=== PATIENT | female | born 1965 | race Caucasian/White ===

== ENCOUNTER 2016-08-02 18:32 | Emergency (ER) | payer OTHER ==
[~2016-08-02] VITALS: Ht 165.1 cm; Wt 94.8 kg
[~2016-08-02 18:32] MED LIST: ACIPHEX20 MG PO; ACTONEL150 MG PO; AMARYL2 MG PO; AMARYL4 MG; AMARYL4 MG PO; AMBIEN CR12.5 MG PO; AMBIEN10 M1; AMBIEN10 M1 PO; AMBIEN5 MG PO; AMOXICILLIN500 MG PO; ANAPROX DS550 MG PO; ANTACID500 MG PO; ANTIVERT25 MG PO; ASPI-COR81 M1 PO; ASPIRIN81 M1 PO; ATENOLOL25 MG PO; ATIVAN PO; ATIVAN0.5 MG PO; B12,B-12,B 12500 MC1 PO; BACTRIM DS 8001 TA1 PO; BENTYL10 MG PO; CIPRO500 MG PO; CIPROFLOXACIN500 MG PO; CLARITIN10 MG PO; CLEOCIN HCL150 MG PO; CLEOCIN150 MG PO; CLINDAMYCIN HC300 MG PO; CLOPIDOGREL75 MG PO; CYMBALTA30 MG PO; CYMBALTA60 MG PO; DELTASONE10 MG PO; DELTASONE20 MG PO; DOXYCYCLINE MO100 MG PO; FIORICET 325 MG1 TAB PO; FLAGYL500 MG PO; GABAPENTIN TAB600 MG PO; GABAPENTIN600 MG PO; GLIMEPIRIDE4 MG; GLIPIZIDE/METFO1 TA1 PO; GLUCOPHAGE1000 MG PO; GUAIFENESIN AC120 ML PO; HUMALOG100 U/ML SC; HYDROCODONE BIT1 T11 PO; IMDUR SA30 MG PO; JANUVIA50 MG PO; KEFLEX500 M1 PO; LANTUS100 U/ML SC; LEVAQUIN750 M1 PO; LEVEMIR10 ML SC; LEVEMIR10 ML SQ; LEVOFLOXACIN500 MG PO; LISINOPRIL10 MG; LISINOPRIL10 MG PO; LISINOPRIL2.5 MG PO; LOVASTATIN20 MG PO; LOVASTATIN40 MG PO; MACROBID100 M1 PO; MEDROL DOSEPAK4 MG PO; METFORMIN; METFORMIN1000 MG; METFORMIN1000 MG PO; NEURONTIN300 MG PO; NILSTAT,MY500000 UN/ PO; NITROSTAT0.4 MG SL; PANTOPRAZOLE SO40 MG PO; PEPCID20 MG PO; PERCOCET 325 MG1 TA2 PO; PHENERGAN W/DM120 ML PO; PHENERGAN25 M3 PO; PLAVIX75 MG; PLAVIX75 MG PO; PROAIR HFA0.09 MG/AC INH; PROTONIX40 MG PO; PROVENTIL0.09 MG/A1 INH; PROZAC10 MG PO; PROZAC20 MG PO; PROZAC40 M1 PO; PYRIDIUM200 MG PO; RANEXA500 M1 PO; ROBAXIN500 M1 PO; ROBITUSSIN-AC 160 ML PO; SEROQUEL50 MG PO; SYMBICORT1 AE1 INH; TOPAMAX25 M3 PO; TOPAMAX50 MG PO; TRAMADOL HCL50 MG PO; TRAZODONE50 MG PO; ULTRAM50 MG PO; VENTOLIN 02.5 MG/3 M INH; VICODIN; VICODIN 5/500 505 MG PO; VICODIN ES 7501 TA1; VICODIN ES 7501 TAB PO; VITAMIN B-12500 MCG PO; ZALEPLON10 MG PO; ZANTAC 150150 MG PO; ZESTRIL5 MG PO; ZITHROMAX250 MG PO; ZOFRAN ODT4 MG SL; ZOFRAN4 MG PO
[2016-08-02 19:20] LABS: BASO # 0.1 10*3/uL (0.0-0.1); BASO % 0.6 % (0.0-1.0); EOS # 0.3 10*3/uL (0.0-0.4); EOS % 2.7 % (1.0-4.0); HEMATOCRIT 40.5 % (37.0-47.0); HEMOGLOBIN 13.8 g/dl (12.0-16.0); LYMPH # 2.5 10*3/uL (1.3-4.4); LYMPH % 25.7 % (27.0-41.0); MEAN CORPUSCULAR HGB 28.3 pg (27.0-31.0); MEAN CORPUSCULAR HGB CONC 34.1 g/dl (33.0-37.0); MEAN PLATELET VOLUME 9.9 fl (9.6-12.3); MONO # 0.5 10*3/uL (0.1-1.0); MONO % 5.3 % (3.0-9.0); NEUT # 6.4 10*3/uL (2.3-7.9); NEUT % 65.4 % (47.0-73.0); PLATELET COUNT AUTOMATED 260 10*3/uL (130-400); RED BLOOD COUNT 4.88 10*6/uL (4.10-5.10); WHITE BLOOD COUNT 9.7 10*3/uL (4.8-10.8)
[2016-08-02 19:36] LABS: ALBUMIN 3.6 gm/dl (3.1-4.5); ALKALINE PHOSPHATASE 124 U/L (45-117); BILIRUBIN, TOTAL 0.4 mg/dl (0.2-1.0); BUN 12 mg/dl (7-24); CARBON DIOXIDE 25 mmol/L (21-32); CHLORIDE 101 mmol/L (98-107); EST GLOM FILT AFRICAN AMERICAN > 60 ml/min; GLUCOSE 328 mg/dL (65-99); POTASSIUM 4.1 mmol/L (3.5-5.1); SGOT/AST 10 IU/L (3-35); SGPT/ALT 19 U/L (12-78); SODIUM 136 mmol/L (136-145); TOTAL PROTEIN 7.7 gm/dL (6.4-8.2)
[2016-08-02 19:38] LABS: CKMB 1.2 ng/ml (0.5-3.6); MAGNESIUM 1.7 mg/dL (1.5-2.1)
[2016-08-02 19:51] LABS: INTERNATIONAL NORM RATIO 0.9 (2.0-3.5); PROTHROMBIN TIME 9.9 SECONDS (9.0-12.4)
[2016-08-02 20:26] LABS: BILIRUBIN NEGATIVE (NEGATIVE); BLOOD NEGATIVE (NEGATIVE); CLARITY CLEAR (CLEAR); COLOR YELLOW (YELLOW); GLUCOSE 2+ (NEGATIVE); KETONE NEGATIVE (NEGATIVE); LEUKO ESTERASE NEGATIVE (NEGATIVE); NITRITE POSITIVE (NEGATIVE); PROTEIN NEGATIVE (NEGATIVE); SPECIFIC GRAVITY <= 1.005 (1.005-1.030); UROBILINOGEN 0.2 E.U./dl (0.2-1.0)
[2016-08-02 20:46] LABS: BACTERIA 2+; RBC 0-2 rbc/hpf (0-2); URINE REFLEX COMMENT YES (NO); WBC 0-2 wbc/hpf (0-5)
[2016-08-02] MEDS ORDERED: CEFUROXIME AXE250 MG PO (21:08)
[2016-08-02 21:40] VITALS: BP 131/61
[2016-09-25] MEDS ORDERED: RANEXA500 M1 PO (20:50)
[2016-09-25] MEDS ORDERED: PROTONIX40 MG PO (20:51)
[2016-09-25] MEDS ORDERED: METFORMIN500 MG PO (20:51)
== END 2016-08-02 21:50 | disposition home or self-care (01) ==
LOC: ED 18:32
PROVIDERS: Nurse Practitioner Family
DX: K52.9 Noninfective gastroenteritis and colitis, unspecified (principal); F17.200 Nicotine dependence, unspecified, uncomplicated; I10 Essential (primary) hypertension; E11.65 Type 2 diabetes mellitus with hyperglycemia; E11.40 Type 2 diabetes mellitus with diabetic neuropathy, unspecified; E78.5 Hyperlipidemia, unspecified; F41.9 Anxiety disorder, unspecified; I25.10 Atherosclerotic heart disease of native coronary artery without angina pectoris; K21.9 Gastro-esophageal reflux disease without esophagitis; H40.9 Unspecified glaucoma; Z79.82 Long term (current) use of aspirin; Z98.890 Other specified postprocedural states; Z98.51 Tubal ligation status; Z90.710 Acquired absence of both cervix and uterus; Z90.49 Acquired absence of other specified parts of digestive tract; Z88.8 Allergy status to other drugs, medicaments and biological substances; Z88.6 Allergy status to analgesic agent; M19.90 Unspecified osteoarthritis, unspecified site

== ENCOUNTER 2016-08-21 14:07 | Emergency (ER) | payer OTHER ==
[~2016-08-21] VITALS: Wt 90.7 kg
[~2016-08-21 14:07] MED LIST changes: +CEFUROXIME AXE250 MG PO
[2016-08-21 14:43] LABS: BASO # 0.1 10*3/uL (0.0-0.1); BASO % 0.8 % (0.0-1.0); EOS # 0.2 10*3/uL (0.0-0.4); EOS % 2.7 % (1.0-4.0); HEMATOCRIT 40.1 % (37.0-47.0); HEMOGLOBIN 13.5 g/dl (12.0-16.0); LYMPH # 2.5 10*3/uL (1.3-4.4); LYMPH % 32.2 % (27.0-41.0); MEAN CELL VOLUME 84.4 fl (81.0-99.0); MEAN CORPUSCULAR HGB 28.4 pg (27.0-31.0); MEAN CORPUSCULAR HGB CONC 33.7 g/dl (33.0-37.0); MEAN PLATELET VOLUME 9.5 fl (9.6-12.3); MONO # 0.4 10*3/uL (0.1-1.0); MONO % 5.5 % (3.0-9.0); NEUT # 4.6 10*3/uL (2.3-7.9); NEUT % 58.7 % (47.0-73.0); PLATELET COUNT AUTOMATED 302 10*3/uL (130-400); RED BLOOD COUNT 4.75 10*6/uL (4.10-5.10); RED CELL DISTRI WIDTH 13.9 % (0-14.5); WHITE BLOOD COUNT 7.9 10*3/uL (4.8-10.8)
[2016-08-21 14:51] LABS: INTERNATIONAL NORM RATIO 0.9 (2.0-3.5); PROTHROMBIN TIME 9.8 SECONDS (9.0-12.4)
[2016-08-21 14:56] LABS: BILIRUBIN NEGATIVE (NEGATIVE); BLOOD TRACE-INTACT (NEGATIVE); CLARITY CLEAR (CLEAR); COLOR YELLOW (YELLOW); GLUCOSE 3+ (NEGATIVE); KETONE NEGATIVE (NEGATIVE); LEUKO ESTERASE NEGATIVE (NEGATIVE); NITRITE NEGATIVE (NEGATIVE); PH 5.5 (5.0-9.0); PROTEIN NEGATIVE (NEGATIVE); UROBILINOGEN 0.2 E.U./dl (0.2-1.0)
[2016-08-21 14:58] LABS: ALKALINE PHOSPHATASE 110 U/L (45-117); BILIRUBIN, TOTAL 0.3 mg/dl (0.2-1.0); BUN 11 mg/dl (7-24); CARBON DIOXIDE 27 mmol/L (21-32); CHLORIDE 103 mmol/L (98-107); CPK 75 U/L (26-192); EST GLOM FILT AFRICAN AMERICAN > 60 ml/min; GLUCOSE 293 mg/dL (65-99); MAGNESIUM 1.8 mg/dL (1.5-2.1); POTASSIUM 3.9 mmol/L (3.5-5.1); SGOT/AST 12 IU/L (3-35); SGPT/ALT 19 U/L (12-78); SODIUM 139 mmol/L (136-145); TOTAL PROTEIN 6.6 gm/dL (6.4-8.2)
[2016-08-21 15:00] LABS: TROPONIN I < 0.015 ng/ml (<0.5)
[2016-08-21 15:11] LABS: RBC 0-2 rbc/hpf (0-2)
[2016-08-21 15:12] LABS: URINE REFLEX COMMENT NO (NO); YEAST 1+
[2016-08-21 15:49] LABS: URINE AMPHETAMINES < 1000 (1000ng/ml); URINE BARBITURATES < 200 (200ng/ml); URINE COCAINE < 300 (300ng/ml)
[2016-08-21 17:57] VITALS: BP 126/84
[2016-09-25] MEDS ORDERED: RANEXA500 M1 PO (20:50)
[2016-09-25] MEDS ORDERED: METFORMIN500 MG PO (20:51)
[2016-09-25] MEDS ORDERED: PROTONIX40 MG PO (20:51)
== END 2016-08-21 19:30 | disposition short-term general hospital (02) ==
LOC: ED 14:07
PROVIDERS: Student in an Organized Health Care Education/Training Program
DX: G40.909 Epilepsy, unspecified, not intractable, without status epilepticus (principal); F41.9 Anxiety disorder, unspecified; I25.10 Atherosclerotic heart disease of native coronary artery without angina pectoris; E11.40 Type 2 diabetes mellitus with diabetic neuropathy, unspecified; K21.9 Gastro-esophageal reflux disease without esophagitis; M19.90 Unspecified osteoarthritis, unspecified site; I10 Essential (primary) hypertension; H40.9 Unspecified glaucoma; E78.5 Hyperlipidemia, unspecified; F17.200 Nicotine dependence, unspecified, uncomplicated; I25.2 Old myocardial infarction; E11.65 Type 2 diabetes mellitus with hyperglycemia; Z90.710 Acquired absence of both cervix and uterus; Z90.49 Acquired absence of other specified parts of digestive tract; Z98.890 Other specified postprocedural states; Z98.51 Tubal ligation status; Z79.82 Long term (current) use of aspirin; Z91.041 Radiographic dye allergy status; Z88.6 Allergy status to analgesic agent; Z88.8 Allergy status to other drugs, medicaments and biological substances

== ENCOUNTER 2017-01-18 10:06 | Inpatient (IN) | payer OTHER ==
[~2017-01-18] VITALS: Ht 165.1 cm; Wt 89.1 kg
[2017-01-18] VITALS (8 sets, daily range): BP systolic 102–174; BP diastolic 57–96
--- NOTE | ~2017-01-18 | CON ---
[place], [place] REPORT OF CONSULTATION NAME: KT BUSTILLOS [facility] #: [id number] UNIT #: [id number] ROOM: 506 DOCTOR: KOSTAS WagnerMICHAELA BIRTHDATE: [birth year] DOS: 01/19/2017 WOUND CARE CONSULTATION CHIEF COMPLAINT: Productive cough. HISTORY OF PRESENT ILLNESS: This is a 51-year-old female who presented to the Emergency Room Department complaining of a productive cough that began shortly the night before last, she was associated with congestion and shortness of breath. She had complained of pleuritic chest pain during exertion and wanted to be evaluated. She has a complicated medical history with a recent admission back in [place] when she was diagnosed recently with ____ mediastinitis. Apparently, she had a history of a pseudoseizure and at some point required intubation and subsequently developed non-ST elevation [place], underwent percutaneous intervention with stents back on 12/30/2016, was discharged from home and readmitted for shortness of breath, stridor, hypotension and sepsis, requiring pressors. Bronchoscopy was redone which revealed upper airway mucus plugging, tracheal edema and plugging. The patient was reintubated when the bronchoscopy was removed. The patient had a CT scan that was done which showed likely tracheal perforation with surrounding free air. She was started on broad spectrum antibiotics, clindamycin, vancomycin and caspofungin. She had a left neck dissection with drainage of mucus and was discharged on oral clindamycin. She was diagnosed with acute post-intubation tracheal stenosis and a pretracheal abscess and mediastinal phlegmon. Her repeat CT done on 01/11/2017 showed improving mediastinitis and she was supposed to follow up with Dr. Allen Marsh at [facility] in [place] for her followup appointment for Monday. He is a cardiothoracic surgeon. Due to these above complaints, the patient was admitted to the Emergency Room Department. PAST MEDICAL HISTORY: Significant for anxiety, coronary artery disease, chest pain of uncertain etiology, diabetes, neuropathy. She has uncontrolled diabetes, DJD, GERD, glaucoma, hypertension, hyperlipidemia, insulin-dependent diabetes, myocardial infarction, non-ST elevation [place], obesity, posttraumatic stress disorder, status epilepticus, TIA. PAST SURGICAL HISTORY: She has had a history of cardiac catheterization, history of hysterectomy, , cholecystectomy, thoracic surgery, rotator cuff repair, cardiac stents. SOCIAL HISTORY: She is a former smoker, just quit about 2 months ago. She does not drink alcohol or use illicit drugs. FAMILY HISTORY: Significant for pancreatic cancer in her father, rheumatoid arthritis in the mother. ALLERGIES: IVP DYE, IODINE, LINAGLIPTIN FROM TRADJENTA, PROPOXYPHENE FROM DARVOCET. MEDICATIONS FROM HOME: She had been on aspirin, atenolol, clindamycin 300 q.i.d., Plavix 75 daily, duloxetine 60 mg p.o. daily, gabapentin 600 p.o. [place], [place] REPORT OF CONSULTATION NAME: [facility]USTILLOS [facility] #[facility] [id number] UNIT #: [id number] ROOM: 506 DOCTOR: MICHAELA KENYON M.D. BIRTHDATE: [birth year] t.i.d., insulin, NovoLog, Lantus subq at bedtime, Imdur 30 p.o. daily, lisinopril 5 p.o. daily, Claritin 10 mg p.o. daily, metformin 500 p.o. daily, oxycodone 5 mg p.o. q.i.d. p.r.n., Protonix 40 mg p.o. daily, Topamax 25 mg p.o. daily, Ambien 10 mg p.o. at bedtime. CURRENT MEDICATIONS: Include doxycycline 100 mg p.o. b.i.d., Augmentin 875 p.o. b.i.d., vitamin D 4000 units daily. She did receive vancomycin IV that was discontinued, Lovenox 40 subq daily was also added, Zosyn was given, but discontinued as well. REVIEW OF SYSTEMS: Initially, she had complained of productive cough, but she says this is resolved. She is feeling better. She no longer has any chest pain. Her breathing is good. She denies any fevers, nausea, vomiting, abdominal pains, or diarrhea. She says her has been helping her pack her wound since her hospital discharge, they have been using just saline soaked sterile gauze and according to the , her has told her that he is not having to pack in as much as before. She says there is always a little bit of drainage, but this has been changed and it seems to be improving according to the patient. PHYSICAL EXAMINATION: VITAL SIGNS: Her temperature is 98.4, pulse of 86, respirations 18, blood pressure is 113/66. GENERAL: This is a well-developed, well-nourished female, slightly overweight, in no acute distress, pleasant and cooperative. HEENT: Extraocular movements are intact. Sclerae are anicteric. Oropharynx is clear. Mucous membranes are moist. CHEST: She has a very large surgical incision on the anterior neck above the sternocleidomastoid, it is measuring approximately 1 cm in length, 8 cm in width and maximum depth is 3.2 cm. There is really no periwound erythema. There is good granulation tissue. There is really no overt visible necrotic tissue present. I do not see any tunneling or undermining noted. There is a small amount of drainage on the external pad, but very minimal. It is tender to touch, but has been tender the entire time, every time somebody manipulates it, she says this has not changed in anyway. LUNGS: Clear to auscultation anteriorly. There is no stridor. CARDIOVASCULAR: S1, S2, regular rate and rhythm. ABDOMEN: Soft, nontender, and nondistended. She has no guarding or rebound. EXTREMITIES: There is no edema and no calf tenderness. NEUROLOGIC: She is alert, nonfocal and appropriate. LABORATORY DATA: Her white count is 6 and was 5.2 on admission, hemoglobin is 12, platelets are 392. There is no left shift. Her Chem-7 shows a sodium of 135, potassium of 3.7, chloride of 97, BUN is 14, creatinine is 1, glucose is 325 upon admission, her hemoglobin A1c is 9.8. LFTs are normal except for alkaline phosphatase of 142, triglycerides are mildly elevated at 244, HDL is low at 36. Vitamin D is low at 17. TSH is 0.08 and free T4 is 1.41. She did have a wound culture that was done which shows no microorganism seen, but many white blood cells. Chest CT was done, which showed lower midline [place], [place] REPORT OF CONSULTATION NAME: KT BUSTILLOS UNIT #: [id number] ROOM: 506 DOCTOR: MICHAELA KENYON M.D. BIRTHDATE: [birth year] suprasternal notch soft tissue defect consistent with site of the drain, described as recently removed, question of a very small residual collection superior to the manubrium and minimally extending into the anterior aspect of the mediastinum and there is fat stranding in the superior mediastinum consistent with component of residual mediastinitis. It does not extend below the level of the aortic arch and there is no pneumomediastinum comparison with previous imaging and is essential for complete evaluation, enhanced imaging also would be helpful. CT of the soft tissue of the neck shows a large soft tissue defect within the anterior chest wall at the level of the sternal notch consistent with recent pretracheal abscess debridement suboptimally and evaluated with unenhanced CT technique. Extensive superior mediastinal inflammatory fat stranding suggesting mediastinitis. Her chest x-ray was done, which showed no acute cardiopulmonary disease. ASSESSMENT AND PLAN: Large neck wound, status post incision and drainage and debridement in a different state. She was sent home on oral clindamycin. She has a history of mediastinitis. Infectious Disease has been consulted and is going to be changing her to a different oral regimen for now with close outpatient followup. The wound looks clean to me at this time and we will continue with the current dressings until she is reevaluated by Cardiothoracic Surgery. She is supposed to follow up initially with a surgeon at [facility]. Apparently, they do not take her insurance, so she is going to be following up with Dr. Fernandez at [facility]. I did explain to the patient once she is cleared by Cardiothoracic Surgery if she would like to follow up with the Wound Clinic for further wound care, we would be happy to see her. I did also explain that how important it is to get her sugars under control as her sugars are not well controlled and this will impair wound healing. She has multiple other medical problems that are being managed by her medical team. MICHAELA KENYON MD CM:CONSTR:REPORT OF CONSULTATION 1606 01/19/17 1740 interface
--- NOTE | ~2017-01-18 | EKG ---
[place], [place] ELECTROCARDIOGRAM REPORT NAME: KT BUSTILLOS UNIT #: [id number] ROOM: 506 DOCTOR: GIORGIO KUMARI MD BIRTHDATE: [birth year] DOS: 01/18/2017 TIME: 10:31:46 Normal sinus rhythm. Leftward axis. Nonspecific ST-T changes. GIORGIO KUMARI MD CM:EKGRPT:ELECTROCARDIOGRAM REPORT 1156 1201 GIORGIO KUMARI MD
[~2017-01-18 10:06] MED LIST changes: +METFORMIN500 MG PO
[2017-01-18] MEDS ORDERED: NOVOLOG FLEX100 U/ML SC (10:37)
[2017-01-18] MEDS ORDERED: OXYCODONE HCL5 MG PO (10:37)
[2017-01-18] MEDS ORDERED: CLINDAMYCIN HC300 MG PO (10:38)
[2017-01-18] MEDS ORDERED: LANTUS100 U/ML SC (10:38)
[2017-01-18 10:43] LABS: BASO % 0.8 % (0.0-1.0); EOS # 0.1 10*3/uL (0.0-0.4); EOS % 1.5 % (1.0-4.0); HEMATOCRIT 37.7 % (37.0-47.0); HEMOGLOBIN 12.6 g/dl (12.0-16.0); LYMPH # 1.8 10*3/uL (1.3-4.4); MEAN CELL VOLUME 81.4 fl (81.0-99.0); MEAN CORPUSCULAR HGB 27.2 pg (27.0-31.0); MEAN CORPUSCULAR HGB CONC 33.4 g/dl (33.0-37.0); MEAN PLATELET VOLUME 9.6 fl (9.6-12.3); MONO # 0.3 10*3/uL (0.1-1.0); MONO % 5.2 % (3.0-9.0); NEUT % 57.3 % (47.0-73.0); PLATELET COUNT AUTOMATED 381 10*3/uL (130-400); RED BLOOD COUNT 4.63 10*6/uL (4.10-5.10); RED CELL DISTRI WIDTH 14.6 % (0-14.5); WHITE BLOOD COUNT 5.2 10*3/uL (4.8-10.8)
[2017-01-18 11:00] LABS: BUN 11 mg/dl (7-24); CARBON DIOXIDE 25 mmol/L (21-32); CHLORIDE 98 mmol/L (98-107); EST GLOM FILT AFRICAN AMERICAN > 60 ml/min; GLUCOSE 415 mg/dL (65-99); POTASSIUM 3.9 mmol/L (3.5-5.1); SODIUM 137 mmol/L (136-145)
[2017-01-18 11:01] LABS: TROPONIN I < 0.015 ng/ml (<0.045)
[2017-01-19 06:46] LABS: BASO % 0.7 % (0.0-1.0); EOS # 0.1 10*3/uL (0.0-0.4); EOS % 2.2 % (1.0-4.0); HEMATOCRIT 38.4 % (37.0-47.0); HEMOGLOBIN 12.6 g/dl (12.0-16.0); LYMPH # 2.4 10*3/uL (1.3-4.4); LYMPH % 40.5 % (27.0-41.0); MEAN CELL VOLUME 84.4 fl (81.0-99.0); MEAN CORPUSCULAR HGB 27.7 pg (27.0-31.0); MEAN CORPUSCULAR HGB CONC 32.8 g/dl (33.0-37.0); MEAN PLATELET VOLUME 9.7 fl (9.6-12.3); MONO # 0.3 10*3/uL (0.1-1.0); MONO % 5.5 % (3.0-9.0); NEUT % 50.6 % (47.0-73.0); PLATELET COUNT AUTOMATED 392 10*3/uL (130-400); RED BLOOD COUNT 4.55 10*6/uL (4.10-5.10); RED CELL DISTRI WIDTH 14.9 % (0-14.5)
[2017-01-19 06:58] LABS: HEMOGLOBIN A1c 9.8 % (4.8-5.6)
[2017-01-19 07:13] LABS: PROTHROMBIN TIME 10.3 SECONDS (9.0-12.4)
[2017-01-19 07:17] LABS: ALBUMIN 3.3 gm/dl (3.1-4.5); ALKALINE PHOSPHATASE 142 U/L (45-117); BILIRUBIN, TOTAL 0.7 mg/dl (0.2-1.0); BUN 14 mg/dl (7-24); CARBON DIOXIDE 26 mmol/L (21-32); CHLORIDE 97 mmol/L (98-107); CHOLESTEROL 196 mg/dL (<200); EST GLOM FILT AFRICAN AMERICAN > 60 ml/min; FREE T4 1.41 ng/dl (0.76-1.46); GLUCOSE 325 mg/dL (65-99); HDL CHOLESTEROL 36 mg/dl (40-60); LDL CHOLESTEROL 111 mg/dL (9-159); MAGNESIUM 1.8 mg/dL (1.5-2.1); PHOSPHOROUS 4.2 mg/dL (2.5-4.9); POTASSIUM 3.7 mmol/L (3.5-5.1); SGOT/AST 15 IU/L (3-35); SGPT/ALT 38 U/L (12-78); SODIUM 135 mmol/L (136-145); TOTAL PROTEIN 7.9 gm/dL (6.4-8.2); TRIGLYCERIDES 244 mg/dl (<150); VLDL CHOLESTEROL 49 mg/dL (6-40)
[2017-01-19 07:22] LABS: VITAMIN D, 25-HYDROXY 17.3 ng/mL (30-100)
[2017-01-19 07:23] LABS: FOLIC ACID 11.95 ng/mL (>5.38)
[2017-01-19 08:00] VITALS: BP 122/74
[2017-01-19 12:00] VITALS: BP 113/66
[2017-01-19] MEDS ORDERED: DOXYCYCLINE MO100 M1 PO (15:47)
[2017-01-19] MEDS ORDERED: AUGMENTIN 875875 MG PO (15:47)
[2017-01-19 16:00] VITALS: BP 122/64
[2017-01-19] MEDS ORDERED: D-1000 185 MG-11 TAB PO (16:30)
== END 2017-01-19 16:57 | disposition home or self-care (01) | DRG 178 ==
LOC: ED 10:06 → 5E 14:03 → EDHOLD 14:03 → 5E 14:10
PROVIDERS: Emergency Medicine; Internal Medicine
DX: J98.51 Mediastinitis (principal); E87.1 Hypo-osmolality and hyponatremia; E11.42 Type 2 diabetes mellitus with diabetic polyneuropathy; E44.0 Moderate protein-calorie malnutrition; K21.9 Gastro-esophageal reflux disease without esophagitis; E78.5 Hyperlipidemia, unspecified; F41.9 Anxiety disorder, unspecified; F43.10 Post-traumatic stress disorder, unspecified; I25.10 Atherosclerotic heart disease of native coronary artery without angina pectoris; I10 Essential (primary) hypertension; H40.9 Unspecified glaucoma; M19.90 Unspecified osteoarthritis, unspecified site; E66.09 Other obesity due to excess calories; G40.901 Epilepsy, unspecified, not intractable, with status epilepticus; E11.9 Type 2 diabetes mellitus without complications; E55.9 Vitamin D deficiency, unspecified; I25.2 Old myocardial infarction; Z86.73 Personal history of transient ischemic attack (TIA), and cerebral infarction without residual deficits; Z90.710 Acquired absence of both cervix and uterus; Z90.49 Acquired absence of other specified parts of digestive tract; Z87.891 Personal history of nicotine dependence; Z80.0 Family history of malignant neoplasm of digestive organs; Z82.61 Family history of arthritis; Z79.82 Long term (current) use of aspirin; Z79.4 Long term (current) use of insulin; Z79.84 Long term (current) use of oral hypoglycemic drugs; Z79.1 Long term (current) use of non-steroidal anti-inflammatories (NSAID); Z79.899 Other long term (current) drug therapy; Z88.8 Allergy status to other drugs, medicaments and biological substances; Z68.32 Body mass index [BMI] 32.0-32.9, adult

== ENCOUNTER 2017-01-22 18:47 | Emergency (ER) | payer OTHER ==
[~2017-01-22] VITALS: Ht 165.1 cm; Wt 88.5 kg
[~2017-01-22 18:47] MED LIST changes: +AUGMENTIN 875875 MG PO; +D-1000 185 MG-11 TAB PO; +DOXYCYCLINE MO100 M1 PO; +NOVOLOG FLEX100 U/ML SC; +OXYCODONE HCL5 MG PO
[2017-01-22 19:43] LABS: BASO # 0.1 10*3/uL (0.0-0.1); BASO % 0.9 % (0.0-1.0); EOS # 0.1 10*3/uL (0.0-0.4); HEMATOCRIT 36.9 % (37.0-47.0); HEMOGLOBIN 12.1 g/dl (12.0-16.0); LYMPH % 36.6 % (27.0-41.0); MEAN CELL VOLUME 82.7 fl (81.0-99.0); MEAN CORPUSCULAR HGB 27.1 pg (27.0-31.0); MEAN CORPUSCULAR HGB CONC 32.8 g/dl (33.0-37.0); MONO # 0.3 10*3/uL (0.1-1.0); MONO % 6.1 % (3.0-9.0); NEUT # 2.9 10*3/uL (2.3-7.9); PLATELET COUNT AUTOMATED 353 10*3/uL (130-400); RED BLOOD COUNT 4.46 10*6/uL (4.10-5.10); RED CELL DISTRI WIDTH 14.3 % (0-14.5); WHITE BLOOD COUNT 5.4 10*3/uL (4.8-10.8)
[2017-01-22 19:53] LABS: PROTHROMBIN TIME 10.2 SECONDS (9.0-12.4)
[2017-01-22 20:01] LABS: ALBUMIN 3.1 gm/dl (3.1-4.5); ALKALINE PHOSPHATASE 148 U/L (45-117); BILIRUBIN, TOTAL 0.4 mg/dl (0.2-1.0); BUN 14 mg/dl (7-24); CARBON DIOXIDE 25 mmol/L (21-32); CHLORIDE 98 mmol/L (98-107); EST GLOM FILT AFRICAN AMERICAN > 60 ml/min; GLUCOSE 461 mg/dL (65-99); MAGNESIUM 1.5 mg/dL (1.5-2.1); POTASSIUM 4.3 mmol/L (3.5-5.1); SGOT/AST 13 IU/L (3-35); SGPT/ALT 29 U/L (12-78); SODIUM 134 mmol/L (136-145); TOTAL PROTEIN 7.7 gm/dL (6.4-8.2)
[2017-01-22 20:07] LABS: TROPONIN I < 0.015 ng/ml (<0.045)
[2017-01-22 21:40] LABS: LA>2 REFLEX 2 HR DRAW NOW
[2017-01-22 22:17] VITALS: BP 118/69
[2017-01-22 23:58] LABS: LA>2 REFLEX 4 HR DRAW NOW
== END 2017-01-22 22:36 | disposition home or self-care (01) ==
LOC: ED 18:47
PROVIDERS: Nurse Practitioner Family
DX: E11.65 Type 2 diabetes mellitus with hyperglycemia (principal); R06.02 Shortness of breath; I25.10 Atherosclerotic heart disease of native coronary artery without angina pectoris; M19.90 Unspecified osteoarthritis, unspecified site; K21.9 Gastro-esophageal reflux disease without esophagitis; I10 Essential (primary) hypertension; E78.5 Hyperlipidemia, unspecified; F43.10 Post-traumatic stress disorder, unspecified; Z87.891 Personal history of nicotine dependence; Z90.49 Acquired absence of other specified parts of digestive tract; Z95.5 Presence of coronary angioplasty implant and graft; Z86.73 Personal history of transient ischemic attack (TIA), and cerebral infarction without residual deficits; Z79.4 Long term (current) use of insulin; Z79.82 Long term (current) use of aspirin; Z88.8 Allergy status to other drugs, medicaments and biological substances; Z91.041 Radiographic dye allergy status; Z79.899 Other long term (current) drug therapy

== ENCOUNTER → 2017-01-24 | Outpatient (CLI) | payer OTHER ==
[~2017-01-24] MED LIST changes: +BUSPIRONE HCL7.5 MG PO; +CRESTOR20 M1 PO; +PREDNISONE50 MG PO; +VICTOZA6 MG/ML SQ
== END ==
LOC: WOUNDCARE 09:02
DX: T81.89XD Other complications of procedures, not elsewhere classified, subsequent encounter (principal); S11.90XD Unspecified open wound of unspecified part of neck, subsequent encounter; I21.4 Non-ST elevation (NSTEMI) myocardial infarction; E11.9 Type 2 diabetes mellitus without complications; X58.XXXD Exposure to other specified factors, subsequent encounter; Y83.8 Other surgical procedures as the cause of abnormal reaction of the patient, or of later complication, without mention of misadventure at the time of the procedure

== ENCOUNTER 2017-01-27 11:10 | Inpatient (IN) | payer OTHER ==
[~2017-01-27] VITALS: Ht 165.1 cm; Wt 90.4 kg
[2017-01-27] VITALS (8 sets, daily range): BP systolic 96–155; BP diastolic 60–88
[~2017-01-27 11:10] MED LIST changes: -BUSPIRONE HCL7.5 MG PO; -CRESTOR20 M1 PO; -PREDNISONE50 MG PO; -VICTOZA6 MG/ML SQ
[2017-01-27 11:36] LABS: BASO # 0.1 10*3/uL (0.0-0.1); BASO % 1.1 % (0.0-1.0); EOS # 0.1 10*3/uL (0.0-0.4); EOS % 2.1 % (1.0-4.0); HEMATOCRIT 38.6 % (37.0-47.0); HEMOGLOBIN 12.8 g/dl (12.0-16.0); LYMPH # 2.5 10*3/uL (1.3-4.4); LYMPH % 38.2 % (27.0-41.0); MEAN CELL VOLUME 80.4 fl (81.0-99.0); MEAN CORPUSCULAR HGB 26.7 pg (27.0-31.0); MEAN CORPUSCULAR HGB CONC 33.2 g/dl (33.0-37.0); MEAN PLATELET VOLUME 10.1 fl (9.6-12.3); MONO # 0.4 10*3/uL (0.1-1.0); MONO % 5.6 % (3.0-9.0); NEUT # 3.5 10*3/uL (2.3-7.9); NEUT % 52.7 % (47.0-73.0); PLATELET COUNT AUTOMATED 324 10*3/uL (130-400); RED CELL DISTRI WIDTH 13.8 % (0-14.5); WHITE BLOOD COUNT 6.6 10*3/uL (4.8-10.8)
[2017-01-27 11:45] LABS: PROTHROMBIN TIME 10.1 SECONDS (9.0-12.4)
[2017-01-27 11:54] LABS: ALBUMIN 3.3 gm/dl (3.1-4.5); ALKALINE PHOSPHATASE 150 U/L (45-117); BILIRUBIN, TOTAL 0.4 mg/dl (0.2-1.0); BUN 10 mg/dl (7-24); CARBON DIOXIDE 22 mmol/L (21-32); CHLORIDE 104 mmol/L (98-107); EST GLOM FILT AFRICAN AMERICAN > 60 ml/min; GLUCOSE 300 mg/dL (65-99); MAGNESIUM 1.5 mg/dL (1.5-2.1); POTASSIUM 4.1 mmol/L (3.5-5.1); SGOT/AST 11 IU/L (3-35); SGPT/ALT 25 U/L (12-78); SODIUM 139 mmol/L (136-145); TOTAL PROTEIN 7.5 gm/dL (6.4-8.2)
[2017-01-27 12:01] LABS: TROPONIN I < 0.015 ng/ml (<0.045)
[2017-01-27] MEDS ORDERED: PROZAC20 MG PO (17:25)
[2017-01-27] MEDS ORDERED: CRESTOR20 M1 PO (17:25)
[2017-01-27] MEDS ORDERED: BUSPIRONE HCL7.5 MG PO (17:27)
[2017-01-27] MEDS ORDERED: VICTOZA6 MG/ML SQ (17:30)
[2017-01-27 17:52] LABS: CKMB 1.2 ng/ml (0.5-3.6)
[2017-01-28] VITALS: BP 110/58
[2017-01-28 00:42] LABS: CKMB 1.1 ng/ml (0.5-3.6)
[2017-01-28 06:25] LABS: BASO # 0.1 10*3/uL (0.0-0.1); BASO % 0.9 % (0.0-1.0); EOS # 0.2 10*3/uL (0.0-0.4); HEMATOCRIT 35.3 % (37.0-47.0); HEMOGLOBIN 11.6 g/dl (12.0-16.0); LYMPH # 2.4 10*3/uL (1.3-4.4); LYMPH % 44.3 % (27.0-41.0); MEAN CELL VOLUME 83.3 fl (81.0-99.0); MEAN CORPUSCULAR HGB 27.4 pg (27.0-31.0); MEAN CORPUSCULAR HGB CONC 32.9 g/dl (33.0-37.0); MEAN PLATELET VOLUME 9.9 fl (9.6-12.3); MONO # 0.3 10*3/uL (0.1-1.0); MONO % 6.2 % (3.0-9.0); NEUT # 2.4 10*3/uL (2.3-7.9); NEUT % 45.2 % (47.0-73.0); PLATELET COUNT AUTOMATED 264 10*3/uL (130-400); RED BLOOD COUNT 4.24 10*6/uL (4.10-5.10); WHITE BLOOD COUNT 5.3 10*3/uL (4.8-10.8)
[2017-01-28 06:32] LABS: CKMB 1.2 ng/ml (0.5-3.6)
[2017-01-28 06:47] LABS: PROTHROMBIN TIME 10.6 SECONDS (9.0-12.4)
[2017-01-28 06:52] LABS: ALBUMIN 3.2 gm/dl (3.1-4.5); BILIRUBIN, TOTAL 0.4 mg/dl (0.2-1.0); BUN 11 mg/dl (7-24); CARBON DIOXIDE 25 mmol/L (21-32); CHLORIDE 105 mmol/L (98-107); CHOLESTEROL 158 mg/dL (<200); EST GLOM FILT AFRICAN AMERICAN > 60 ml/min; GLUCOSE 180 mg/dL (65-99); HDL CHOLESTEROL 39 mg/dl (40-60); LDL CHOLESTEROL 68 mg/dL (9-159); MAGNESIUM 1.7 mg/dL (1.5-2.1); PHOSPHOROUS 4.4 mg/dL (2.5-4.9); POTASSIUM 3.7 mmol/L (3.5-5.1); SGOT/AST 11 IU/L (3-35); SGPT/ALT 25 U/L (12-78); SODIUM 143 mmol/L (136-145); TRIGLYCERIDES 257 mg/dl (<150); VLDL CHOLESTEROL 51 mg/dL (6-40)
[2017-01-28 06:57] LABS: ALKALINE PHOSPHATASE 125 U/L (45-117); THYROID STIM HORMONE (HS) 0.088 uIU/ml (0.358-4.75); TOTAL PROTEIN 6.9 gm/dL (6.4-8.2)
[2017-01-28 07:10] LABS: HEMOGLOBIN A1c 10.1 % (4.8-5.6)
[2017-01-28 07:40] LABS: VITAMIN D, 25-HYDROXY 24.9 ng/mL (30-100)
[2017-01-28 07:41] LABS: FOLIC ACID 12.38 ng/mL (>5.38)
[2017-01-28 08:00] VITALS: BP 153/84
[2017-01-28 12:00] VITALS: BP 107/58
[2017-01-28 12:08] LABS: CKMB 1.2 ng/ml (0.5-3.6)
[2017-01-28 16:00] VITALS: BP 96/59
[2017-01-28 20:00] VITALS: BP 116/50
[2017-01-29] VITALS (12 sets, daily range): BP systolic 103–181; BP diastolic 63–123
[2017-01-29 00:47] LABS: BASO % 0.1 % (0.0-1.0); HEMATOCRIT 34.4 % (37.0-47.0); HEMOGLOBIN 11.8 g/dl (12.0-16.0); IG # 0.1 10*3/uL (0.0-0.1); LYMPH # 0.9 10*3/uL (1.3-4.4); LYMPH % 9.9 % (27.0-41.0); MEAN CELL VOLUME 80.4 fl (81.0-99.0); MEAN CORPUSCULAR HGB 27.6 pg (27.0-31.0); MEAN CORPUSCULAR HGB CONC 34.3 g/dl (33.0-37.0); MEAN PLATELET VOLUME 10.2 fl (9.6-12.3); MONO # 0.1 10*3/uL (0.1-1.0); MONO % 0.6 % (3.0-9.0); NEUT # 7.7 10*3/uL (2.3-7.9); NEUT % 88.5 % (47.0-73.0); PLATELET COUNT AUTOMATED 283 10*3/uL (130-400); RED BLOOD COUNT 4.28 10*6/uL (4.10-5.10); RED CELL DISTRI WIDTH 13.6 % (0-14.5); WHITE BLOOD COUNT 8.7 10*3/uL (4.8-10.8)
[2017-01-29 01:04] LABS: BUN 17 mg/dl (7-24); CARBON DIOXIDE 18 mmol/L (21-32); CHLORIDE 100 mmol/L (98-107); EST GLOM FILT AFRICAN AMERICAN 50 ml/min; GLUCOSE 477 mg/dL (65-99); POTASSIUM 3.8 mmol/L (3.5-5.1); SODIUM 136 mmol/L (136-145)
[2017-01-29 01:14] LABS: TROPONIN I < 0.015 ng/ml (<0.045)
[2017-01-29 05:48] LABS: BASO % 0.1 % (0.0-1.0); HEMATOCRIT 33.5 % (37.0-47.0); IG # 0.1 10*3/uL (0.0-0.1); LYMPH # 0.9 10*3/uL (1.3-4.4); LYMPH % 8.3 % (27.0-41.0); MEAN CELL VOLUME 80.5 fl (81.0-99.0); MEAN CORPUSCULAR HGB 26.4 pg (27.0-31.0); MEAN CORPUSCULAR HGB CONC 32.8 g/dl (33.0-37.0); MEAN PLATELET VOLUME 10.4 fl (9.6-12.3); MONO # 0.1 10*3/uL (0.1-1.0); MONO % 0.7 % (3.0-9.0); NEUT # 9.4 10*3/uL (2.3-7.9); PLATELET COUNT AUTOMATED 280 10*3/uL (130-400); RED BLOOD COUNT 4.16 10*6/uL (4.10-5.10); RED CELL DISTRI WIDTH 13.6 % (0-14.5); WHITE BLOOD COUNT 10.4 10*3/uL (4.8-10.8)
[2017-01-29 05:59] LABS: ALBUMIN 3.2 gm/dl (3.1-4.5); ALKALINE PHOSPHATASE 128 U/L (45-117); BILIRUBIN, TOTAL 0.3 mg/dl (0.2-1.0); BUN 16 mg/dl (7-24); CARBON DIOXIDE 22 mmol/L (21-32); CHLORIDE 100 mmol/L (98-107); EST GLOM FILT AFRICAN AMERICAN > 60 ml/min; GLUCOSE 419 mg/dL (65-99); MAGNESIUM 1.5 mg/dL (1.5-2.1); POTASSIUM 4.5 mmol/L (3.5-5.1); SGOT/AST 13 IU/L (3-35); SGPT/ALT 24 U/L (12-78); SODIUM 135 mmol/L (136-145); TOTAL PROTEIN 7.3 gm/dL (6.4-8.2)
[2017-01-29] MEDS ORDERED: PREDNISONE50 MG PO (14:34)
[2017-01-29] MEDS ORDERED: ATIVAN0.5 MG PO (14:34)
[2017-01-29] MEDS ORDERED: PROVENTIL0.09 MG/A1 INH (14:34)
== END 2017-01-29 15:15 | disposition home or self-care (01) | DRG 637 ==
LOC: ED 11:10 → EDHOLD 15:17 → 5E 15:27 → ICCU 01-29 02:05
PROVIDERS: Emergency Medicine; Family Medicine; Hospitalist; Student in an Organized Health Care Education/Training Program
DX: E11.65 Type 2 diabetes mellitus with hyperglycemia (principal); J98.51 Mediastinitis; E44.1 Mild protein-calorie malnutrition; E11.42 Type 2 diabetes mellitus with diabetic polyneuropathy; K21.9 Gastro-esophageal reflux disease without esophagitis; E78.2 Mixed hyperlipidemia; F41.9 Anxiety disorder, unspecified; F43.10 Post-traumatic stress disorder, unspecified; I25.10 Atherosclerotic heart disease of native coronary artery without angina pectoris; I10 Essential (primary) hypertension; H40.9 Unspecified glaucoma; M15.9 Polyosteoarthritis, unspecified; G40.901 Epilepsy, unspecified, not intractable, with status epilepticus; E66.01 Morbid (severe) obesity due to excess calories; Z79.4 Long term (current) use of insulin; Z87.891 Personal history of nicotine dependence; Z98.61 Coronary angioplasty status; Z91.041 Radiographic dye allergy status; Z88.8 Allergy status to other drugs, medicaments and biological substances; Z86.73 Personal history of transient ischemic attack (TIA), and cerebral infarction without residual deficits; Z90.710 Acquired absence of both cervix and uterus; Z90.49 Acquired absence of other specified parts of digestive tract; Z98.891 History of uterine scar from previous surgery; Z98.51 Tubal ligation status; Z83.3 Family history of diabetes mellitus; Z82.49 Family history of ischemic heart disease and other diseases of the circulatory system; Z80.8 Family history of malignant neoplasm of other organs or systems; Z79.82 Long term (current) use of aspirin; Z79.84 Long term (current) use of oral hypoglycemic drugs; Z79.899 Other long term (current) drug therapy; I25.2 Old myocardial infarction

== ENCOUNTER → 2017-02-01 | Outpatient (CLI) | payer OTHER ==
[~2017-02-01] MED LIST changes: +BUSPIRONE HCL7.5 MG PO; +CRESTOR20 M1 PO; +PREDNISONE50 MG PO; +VICTOZA6 MG/ML SQ
== END ==
LOC: WOUNDCARE 04:24
DX: T81.89XD Other complications of procedures, not elsewhere classified, subsequent encounter (principal); L02.11 Cutaneous abscess of neck; E11.628 Type 2 diabetes mellitus with other skin complications; Y83.8 Other surgical procedures as the cause of abnormal reaction of the patient, or of later complication, without mention of misadventure at the time of the procedure

== ENCOUNTER → 2017-02-08 | Outpatient (CLI) | payer OTHER ==
[~2017-02-08] MED LIST changes: +ATIVAN1 MG PO
== END ==
LOC: WOUNDCARE 02:49
DX: T81.89XD Other complications of procedures, not elsewhere classified, subsequent encounter (principal); L02.11 Cutaneous abscess of neck; E11.9 Type 2 diabetes mellitus without complications; Z87.891 Personal history of nicotine dependence; Y83.8 Other surgical procedures as the cause of abnormal reaction of the patient, or of later complication, without mention of misadventure at the time of the procedure

== ENCOUNTER 2017-02-14 18:06 | Emergency (ER) | payer OTHER ==
[~2017-02-14] VITALS: Ht 165.1 cm; Wt 90.3 kg
[~2017-02-14 18:06] MED LIST changes: -ATIVAN1 MG PO
[2017-02-14 18:16] VITALS: BP 156/95
[2017-02-14 18:55] LABS: BASO % 0.5 % (0.0-1.0); EOS # 0.2 10*3/uL (0.0-0.4); EOS % 2.1 % (1.0-4.0); HEMATOCRIT 33.1 % (37.0-47.0); HEMOGLOBIN 11.1 g/dl (12.0-16.0); LYMPH # 2.6 10*3/uL (1.3-4.4); LYMPH % 33.5 % (27.0-41.0); MEAN CELL VOLUME 80.7 fl (81.0-99.0); MEAN CORPUSCULAR HGB 27.1 pg (27.0-31.0); MEAN CORPUSCULAR HGB CONC 33.5 g/dl (33.0-37.0); MONO # 0.3 10*3/uL (0.1-1.0); MONO % 4.2 % (3.0-9.0); NEUT # 4.6 10*3/uL (2.3-7.9); NEUT % 59.4 % (47.0-73.0); PLATELET COUNT AUTOMATED 228 10*3/uL (130-400); RED CELL DISTRI WIDTH 14.6 % (0-14.5); WHITE BLOOD COUNT 7.8 10*3/uL (4.8-10.8)
[2017-02-14 19:09] LABS: ALBUMIN 3.3 gm/dl (3.1-4.5); BILIRUBIN, TOTAL 0.2 mg/dl (0.2-1.0); POTASSIUM 4.1 mmol/L (3.5-5.1); TOTAL PROTEIN 7.1 gm/dL (6.4-8.2)
[2017-02-14] MEDS ORDERED: ATIVAN1 MG PO (22:32)
== END 2017-02-14 22:43 | disposition home or self-care (01) ==
LOC: ED 18:06
PROVIDERS: Emergency Medicine
DX: R06.00 Dyspnea, unspecified (principal); R13.10 Dysphagia, unspecified; R05 Cough; I25.10 Atherosclerotic heart disease of native coronary artery without angina pectoris; K21.9 Gastro-esophageal reflux disease without esophagitis; E78.5 Hyperlipidemia, unspecified; I10 Essential (primary) hypertension; M19.90 Unspecified osteoarthritis, unspecified site; E11.40 Type 2 diabetes mellitus with diabetic neuropathy, unspecified; E11.39 Type 2 diabetes mellitus with other diabetic ophthalmic complication; H40.9 Unspecified glaucoma; Z91.041 Radiographic dye allergy status; Z88.8 Allergy status to other drugs, medicaments and biological substances; Z79.82 Long term (current) use of aspirin; Z79.899 Other long term (current) drug therapy; Z87.891 Personal history of nicotine dependence; Z79.4 Long term (current) use of insulin; Z86.73 Personal history of transient ischemic attack (TIA), and cerebral infarction without residual deficits

== ENCOUNTER → 2017-02-15 | Outpatient (CLI) | payer OTHER ==
[~2017-02-15] MED LIST changes: +ATIVAN1 MG PO
== END ==
LOC: WOUNDCARE 03:07
DX: L02.11 Cutaneous abscess of neck (principal); E11.9 Type 2 diabetes mellitus without complications

== ENCOUNTER → 2017-02-28 | Outpatient (CLI) | payer OTHER ==
--- NOTE | ~2017-02-28 | PR ---
[place], [place] PROGRESS NOTE NAME: KT BUSTILLOS [facility] #: [id number] UNIT #: [id number] ROOM: DOCTOR: KOSTAS WagnerMICHAELA BIRTHDATE: [birth year] DOS: 02/28/2017 CHIEF COMPLAINT: Followup of neck wound. HISTORY OF PRESENT ILLNESS: This is a 51-year-old female who has had an open wound of the neck secondary to an abscess. She had a very large gaping wound after incision and drainage. She has been coming to the Wound Clinic for 5 weeks now. The wound has been steadily improving. Last time she was here, we had started her on collagen Ag. She comes in today stating that it is starting to feel uncomfortable. She has noted irritation and discomfort around the wound for the past 3 days now. It feels irritated and she is not sure why. She has not reported any change in drainage. She was noted to have a temperature of 99.1 today. No reports of change in her sugars. OBJECTIVE: VITAL SIGNS: Stable. Temperature is 99.1, pulse 85, respirations 18 and blood pressure is 118/64. SKIN: The wound itself is measuring smaller at 0.3 x 2.5 x 0.1. It looks good. It looks clean. There is some hypergranulation noted on the edges of the wound that was not present last week and there is some minimal erythema just around the periwound. There is no purulence or undermining noted or sign of an abscess formation. No debridement was done. ASSESSMENT AND PLAN: Large neck wound secondary to an abscess. Overall, the wound looks pretty good. She does complain of some irritation and discomfort around it which could be possibly secondary to the collagen silver that she has been getting. I would like to switch this and discontinue the collagen and the silver and switch to Bactroban ointment to be utilized and just a dry dressing over that and see if that will help. In addition, there may be a slight early cellulitis around the wound. So, we will go ahead and start her empirically on Keflex 500 t.i.d. for now until she comes in at her next wound care visit. I did ask her to keep an eye on the wound. If for some reason things change, she should come and see us sooner than a week. [place], [place] PROGRESS NOTE NAME: KT BUSTILLOS UNIT #: [id number] ROOM: DOCTOR: MICHAELA KENYON M.D. BIRTHDATE: [birth year] MICHAELA KENYON MD CM:KENYA [id number] MICHAELA KENYON M.D. 02/28/17 1459 interface
== END ==
LOC: WOUNDCARE 12:43
DX: L02.11 Cutaneous abscess of neck (principal); E11.628 Type 2 diabetes mellitus with other skin complications

== ENCOUNTER → 2017-03-08 | Outpatient (CLI) | payer OTHER ==
--- NOTE | ~2017-03-08 | PR ---
[place], [place] PROGRESS NOTE NAME: KT BUSTILLOS [facility] #: [id number] UNIT #: [id number] ROOM: DOCTOR: MICHAELA KENYON M.D. BIRTHDATE: [birth year] DOS: 03/08/2017 CHIEF COMPLAINT: Followup of neck wound. HISTORY OF PRESENT ILLNESS: This is a 52-year-old female with diabetes who had a tracheal abscess. She underwent incision and drainage surgically and was left with a large gaping wound to the neck. She comes in to the Wound Clinic now for her followup visit. She has been coming to the Wound Clinic for 6 weeks now. The wound has been steadily improving. Last week, she did have some slight hypergranulation noted and her dressing was changed from collagen to just Bactroban. She comes in today stating that she has no specific complaints. She has noticed a little bit of a bulge on part of the edge of the wound, but there is no change in drainage, no fevers or chills. She states her sugars are still pretty high. She stated yesterday it was still in the 300 range. She has been working with her primary care physician on changing her Lantus. They switched her to evening Lantus and have been upping her sliding scale as well, so she is working on that. OBJECTIVE: VITAL SIGNS: Her temperature is 98.8, pulse of 82, respirations 18 and blood pressure is 112/78. SKIN: The wound is measuring smaller at 0.3 x 0.2 x 0.1. There is no evidence of cellulitis. There is still a slight amount of hypergranulation around the edges of the wound margins, but it looks to me less hypergranulated than before. Overall, it looks fairly stable and pretty clean and looks good. No debridement was done. ASSESSMENT AND PLAN: Healing neck wound. We will continue with Bactroban and a foam dressing and have her followup in one week. MICHAELA KENYON MD CM:PNTRANS [id number] MICHAELA KENYON M.D. 03/08/17 1051 interface
== END ==
LOC: WOUNDCARE 02:57
DX: L02.11 Cutaneous abscess of neck (principal); E11.9 Type 2 diabetes mellitus without complications

== ENCOUNTER → 2017-03-15 | Outpatient (CLI) | payer OTHER ==
--- NOTE | ~2017-03-15 | PR ---
[place], [place] PROGRESS NOTE NAME: KT BUSTILLOS [facility] #: [id number] UNIT #: [id number] ROOM: DOCTOR: MICHAELA KENYON M.D. BIRTHDATE: [birth year] DOS: 03/15/2017 CHIEF COMPLAINT: Followup of open wound of the neck. This is a 52-year-old female who has been coming to the Wound Clinic for 7 weeks now. She had a tracheal abscess drained in the left with a very large open wound of the neck. She has been coming here for several weeks now with steadily improving wound. She comes in today stating that she thinks the wound has healed. Her physical exam shows vital signs are stable. Temperature 98, pulse 64, respirations 16, blood pressure 120/64. The wound is healed and looks good. It is completely epithelialized. She also did tell us that she has been seen by ENT and was noted to have a focal polyp and is supposed to have a biopsy of this. ASSESSMENT AND PLAN: Healed neck wound. We will go ahead and discharge the patient. MICHAELA KENYON MD CM:KENYA [id number] MICHAELA KENYON M.D. 03/15/17 2242 interface
== END | disposition home or self-care (01) ==
LOC: WOUNDCARE 03:12
DX: L02.11 Cutaneous abscess of neck (principal); E11.9 Type 2 diabetes mellitus without complications

== ENCOUNTER 2017-05-31 22:02 | Inpatient (IN) | payer OTHER ==
[~2017-05-31] VITALS: Ht 165.1 cm; Wt 95.0 kg
[2017-05-31 22:03] VITALS: BP 203/99
[2017-05-31 22:10] VITALS: BP 170/90
[2017-05-31 22:26] LABS: BASO # 0.1 10*3/uL (0.0-0.1); BASO % 0.6 % (0.0-1.0); EOS # 0.3 10*3/uL (0.0-0.4); EOS % 2.9 % (1.0-4.0); HEMATOCRIT 36.7 % (37.0-47.0); LYMPH # 2.8 10*3/uL (1.3-4.4); LYMPH % 30.3 % (27.0-41.0); MEAN CELL VOLUME 76.9 fl (81.0-99.0); MEAN CORPUSCULAR HGB 25.2 pg (27.0-31.0); MEAN CORPUSCULAR HGB CONC 32.7 g/dl (33.0-37.0); MEAN PLATELET VOLUME 9.9 fl (9.6-12.3); MONO # 0.5 10*3/uL (0.1-1.0); MONO % 5.1 % (3.0-9.0); NEUT # 5.5 10*3/uL (2.3-7.9); NEUT % 60.8 % (47.0-73.0); PLATELET COUNT AUTOMATED 346 10*3/uL (130-400); RED BLOOD COUNT 4.77 10*6/uL (4.10-5.10); RED CELL DISTRI WIDTH 15.2 % (0-14.5); WHITE BLOOD COUNT 9.1 10*3/uL (4.8-10.8)
[2017-05-31 22:28] VITALS: BP 140/84
--- NOTE | 2017-05-31 22:30 | NUR ---
PT GIVEN NGT SL X 1 AND MORPHINE 1 MG IV, RATES PAIN AT 03/09, B/P 141/84.
[2017-05-31 22:39] VITALS: BP 147/83
--- NOTE | 2017-05-31 22:40 | NUR ---
PATIENT STATES NO CHANGE IN CHEST PAIN STILL 03/09,
[2017-05-31 22:43] LABS: ALBUMIN 3.8 gm/dl (3.1-4.5); ALKALINE PHOSPHATASE 150 U/L (45-117); BUN 21 mg/dl (7-24); CHLORIDE 96 mmol/L (98-107); CREATININE 1.07 mg/dL (0.55-1.02); POTASSIUM 4.1 mmol/L (3.5-5.1); SGOT/AST 13 IU/L (3-35); SGPT/ALT 22 U/L (12-78); SODIUM 131 mmol/L (136-145)
[2017-05-31 22:46] LABS: ACT PARTIAL THROMBO TIME 21.1 SECONDS (20.8-31.5); INTERNATIONAL NORM RATIO 0.9 (2.0-3.5)
[2017-05-31 22:48] LABS: TROPONIN I < 0.015 ng/ml (<0.045)
[2017-05-31 23:02] VITALS: BP 145/77
--- NOTE | 2017-06-01 00:03 | NUR ---
NO CHANGE IN LEVEL OF PAIN , AWAITING FOR ADMISSION
[2017-06-01 00:04] VITALS: BP 117/64
--- NOTE | 2017-06-01 00:26 | NUR ---
CALLED ED TO RECEIVE REPORT ON PT, NURSE UNABLE TO GIVE REPORT AT THIS TIME, WILL CALL BACK.
[2017-06-01 00:45] VITALS: BP 162/80
--- NOTE | 2017-06-01 00:45 | NUR ---
A 52, admitted to , under the services of RUTHANN Hurst DO with a diagnosis of CHEST PAIN. Chief complaint is CHEST PAIN. Patient arrived via bed from ER. Monitor applied. Initial assessment completed. Vital signs taken and recorded. RUTHANN HURST DO notified of admission to the unit. Orders received. See assessment for past medical history, medications and allergies. Patient oriented to unit. [facility] visitation policy reviewed. Clothing/patient valuable form completed. AUNDREA SALCIDO
--- NOTE | 2017-06-01 03:44 | NUR ---
24 HR chart check completed.
[2017-06-01 04:00] VITALS: BP 151/81
[2017-06-01 04:28] LABS: BILIRUBIN NEGATIVE (NEGATIVE); BLOOD NEGATIVE (NEGATIVE); CLARITY SL CLOUDY (CLEAR); COLOR YELLOW (YELLOW); GLUCOSE 3+ (NEGATIVE); KETONE NEGATIVE (NEGATIVE); LEUKO ESTERASE NEGATIVE (NEGATIVE); NITRITE NEGATIVE (NEGATIVE); PH 5.5 (5.0-9.0); SPECIFIC GRAVITY <= 1.005 (1.005-1.030); UROBILINOGEN 0.2 E.U./dl (0.2-1.0)
[2017-06-01 04:34] LABS: BACTERIA TRACE; YEAST 1+
[2017-06-01 05:01] LABS: BASO % 0.6 % (0.0-1.0); EOS # 0.2 10*3/uL (0.0-0.4); EOS % 3.4 % (1.0-4.0); HEMATOCRIT 32.2 % (37.0-47.0); HEMOGLOBIN 10.4 g/dl (12.0-16.0); LYMPH # 2.5 10*3/uL (1.3-4.4); LYMPH % 35.9 % (27.0-41.0); MEAN CELL VOLUME 77.2 fl (81.0-99.0); MEAN CORPUSCULAR HGB 24.9 pg (27.0-31.0); MEAN CORPUSCULAR HGB CONC 32.3 g/dl (33.0-37.0); MEAN PLATELET VOLUME 9.7 fl (9.6-12.3); MONO # 0.4 10*3/uL (0.1-1.0); MONO % 5.5 % (3.0-9.0); NEUT # 3.8 10*3/uL (2.3-7.9); PLATELET COUNT AUTOMATED 279 10*3/uL (130-400); RED BLOOD COUNT 4.17 10*6/uL (4.10-5.10); RED CELL DISTRI WIDTH 15.2 % (0-14.5)
[2017-06-01 05:09] LABS: ACT PARTIAL THROMBO TIME 21.5 SECONDS (20.8-31.5); INTERNATIONAL NORM RATIO 0.9 (2.0-3.5)
--- NOTE | 2017-06-01 05:25 | NUR ---
CONSULT AND CRITICAL LAB VALUE CALLED TO DR. OLSON AT THIS TIME. DR. OLSON STATES TO KEEP PT NPO AND THAT HE WILL TRY TO GET HER INTO [facility] TODAY, HE WILL CALL WITH FURTHER INSTRUCTIONS ONCE HE KNOWS IF BED IS AVAILABLE AT [facility].
[2017-06-01 05:29] LABS: ALBUMIN 3.2 gm/dl (3.1-4.5); ALKALINE PHOSPHATASE 122 U/L (45-117); BUN 18 mg/dl (7-24); CHLORIDE 105 mmol/L (98-107); CREATININE 0.81 mg/dL (0.55-1.02); FREE T4 0.91 ng/dl (0.76-1.46); PHOSPHOROUS 3.3 mg/dL (2.5-4.9); POTASSIUM 4.1 mmol/L (3.5-5.1); SGOT/AST 7 IU/L (3-35); SGPT/ALT 17 U/L (12-78); SODIUM 138 mmol/L (136-145); TOTAL PROTEIN 6.7 gm/dL (6.4-8.2)
--- NOTE | 2017-06-01 05:29 | NUR ---
CHRISTAL FROM [facility] CALLED AND SHE SAID SHE SPOKE WITH DR. KUMARI AND HE WANTS HER TO THE [facility] THIS AM. [facility] IS TO CALL US WITH TIME THEY ARE TRYING TO GET HER THERE AROUND 7 AM. NURSING ADJUNCT PHILOSOPHY FACULTY NOTIFIED.
--- NOTE | 2017-06-01 05:37 | NUR ---
DR. CELESTIN NOTIFIED OF PT TRANSFER THIS AM TO [facility] FOR HEART CATH PER DR. OLSON. PHYSICIAN STATES THAT HE WILL PUT IN TRANSFER/DISCHARGE ORDERS.
--- NOTE | 2017-06-01 05:52 | NUR ---
GAVE NURSE TO NURSE REPORT TO NURSE AT [facility] AT THIS TIME.
--- NOTE | 2017-06-01 06:00 | NUR ---
AFTER SPEAKING WITH PATIENT ABOUT NEED TO HAVE HEART CATH DONE BY DR. KUMARI AT [facility], PT. SIGNED CONSENT TO TRANSFER AND RELEASE OF MEDICAL INFORMATION. AMBULANCE SET UP FOR TRANSPORT WITH [facility] AND [facility] PUBLICITY DIRECTOR NOTIFIED AMBULANCE SERVICE CANNOT BE HERE UNTIL 714 AND THEY WERE OKAY WITH THIS.
--- NOTE | 2017-06-01 07:11 | NUR ---
[facility] CALLED AND SAID THEY ARE NOT ABLE TO COME. CALLED [facility] AND NOTIFIED HER OF THIS.
--- NOTE | 2017-06-01 07:16 | NUR ---
CALLED DR. VAZ AND NOTIFIED HIM OF DR. Gerard CELESTIN NOT HAVING PUT DISCHARGE IN YET AND NEED IT MIKEY. HE SAID HE WOULD TAKE CARE OF IT.
--- NOTE | 2017-06-01 07:18 | NUR ---
CALLED DR. VAZ AND ASKED THEM TO PLEASE PUT DISPOSITION IN BECAUSE [facility] IS ON THEIR WAY NOW.
[2017-06-01 07:39] LABS: VITAMIN D, 25-HYDROXY 18.5 ng/mL (30-100)
--- NOTE | 2017-06-01 07:39 | NUR ---
Discharge instructions reviewed with patient. Patient to go to [facility] for heart cath per Dr. Solano. Patient receptive and verbalizes understanding. [facility] Ambulance service here to pick patient up at this time. Packet sent with ambulance. Patient stable at this time. Heart monitor removed. [place] Grover
--- NOTE | 2017-06-01 07:43 | NUR ---
CALLED [facility] AND SPOKE WITH PRACHI. NOTIFIED HER OF HAVING TO OBTAIN ANOTHER AMBULANCE SERVICE AND THEY ARE HERE AND PT. IN ROUTE AT THIS TIME. PALMIRA ROSARIO RN
== END 2017-06-01 07:43 | disposition short-term general hospital (02) | DRG 313 ==
LOC: ED 22:02 → EDHOLD 23:07 → 5E 23:07
PROVIDERS: Emergency Medicine; Internal Medicine; ADMIT Internal Medicine
DX: R07.89 Other chest pain (principal); I25.10 Atherosclerotic heart disease of native coronary artery without angina pectoris; N17.9 Acute kidney failure, unspecified; E11.42 Type 2 diabetes mellitus with diabetic polyneuropathy; E11.65 Type 2 diabetes mellitus with hyperglycemia; I16.1 Hypertensive emergency; E87.1 Hypo-osmolality and hyponatremia; R09.1 Pleurisy; K21.9 Gastro-esophageal reflux disease without esophagitis; J06.9 Acute upper respiratory infection, unspecified; B97.89 Other viral agents as the cause of diseases classified elsewhere; H40.9 Unspecified glaucoma; M19.90 Unspecified osteoarthritis, unspecified site; E78.5 Hyperlipidemia, unspecified; G47.00 Insomnia, unspecified; E86.0 Dehydration; F43.10 Post-traumatic stress disorder, unspecified; E66.09 Other obesity due to excess calories; E55.9 Vitamin D deficiency, unspecified; I10 Essential (primary) hypertension; F41.9 Anxiety disorder, unspecified; Z86.73 Personal history of transient ischemic attack (TIA), and cerebral infarction without residual deficits; Z98.61 Coronary angioplasty status; Z79.4 Long term (current) use of insulin; I25.2 Old myocardial infarction; Z91.041 Radiographic dye allergy status; Z88.8 Allergy status to other drugs, medicaments and biological substances; Z79.899 Other long term (current) drug therapy; Z79.82 Long term (current) use of aspirin; Z90.710 Acquired absence of both cervix and uterus; Z90.49 Acquired absence of other specified parts of digestive tract; Z98.51 Tubal ligation status; Z87.891 Personal history of nicotine dependence; Z83.3 Family history of diabetes mellitus; Z80.0 Family history of malignant neoplasm of digestive organs; Z84.89 Family history of other specified conditions; Z82.49 Family history of ischemic heart disease and other diseases of the circulatory system; Z68.34 Body mass index [BMI] 34.0-34.9, adult

== ENCOUNTER 2017-06-12 11:53 | Emergency (ER) | payer OTHER ==
[~2017-06-12] VITALS: Ht 165.1 cm; Wt 93.0 kg
[2017-06-12 12:18] LABS: BASO % 0.4 % (0.0-1.0); EOS # 0.2 10*3/uL (0.0-0.4); HEMATOCRIT 37.2 % (37.0-47.0); HEMOGLOBIN 12.2 g/dl (12.0-16.0); LYMPH # 2.3 10*3/uL (1.3-4.4); LYMPH % 24.6 % (27.0-41.0); MEAN CELL VOLUME 76.5 fl (81.0-99.0); MEAN CORPUSCULAR HGB 25.1 pg (27.0-31.0); MEAN CORPUSCULAR HGB CONC 32.8 g/dl (33.0-37.0); MEAN PLATELET VOLUME 9.7 fl (9.6-12.3); MONO # 0.4 10*3/uL (0.1-1.0); MONO % 4.5 % (3.0-9.0); NEUT # 6.3 10*3/uL (2.3-7.9); NEUT % 68.1 % (47.0-73.0); PLATELET COUNT AUTOMATED 356 10*3/uL (130-400); RED BLOOD COUNT 4.86 10*6/uL (4.10-5.10); RED CELL DISTRI WIDTH 15.1 % (0-14.5); WHITE BLOOD COUNT 9.3 10*3/uL (4.8-10.8)
[2017-06-12 12:30] LABS: ACT PARTIAL THROMBO TIME 21.7 SECONDS (20.8-31.5); INTERNATIONAL NORM RATIO 0.9 (2.0-3.5)
[2017-06-12 12:37] LABS: ALBUMIN 3.4 gm/dl (3.1-4.5); ALKALINE PHOSPHATASE 138 U/L (45-117); BUN 15 mg/dl (7-24); CHLORIDE 98 mmol/L (98-107); CREATININE 1.12 mg/dL (0.55-1.02); POTASSIUM 4.8 mmol/L (3.5-5.1); SGOT/AST 16 IU/L (3-35); SGPT/ALT 22 U/L (12-78); SODIUM 133 mmol/L (136-145); TOTAL PROTEIN 7.6 gm/dL (6.4-8.2)
[2017-06-12 12:38] LABS: TROPONIN I < 0.015 ng/ml (<0.045)
[2017-06-12 13:24] VITALS: BP 106/67
== END 2017-06-12 13:24 | disposition short-term general hospital (02) ==
LOC: ED 11:53
PROVIDERS: Emergency Medicine
DX: I63.9 Cerebral infarction, unspecified (principal); F41.9 Anxiety disorder, unspecified; K21.9 Gastro-esophageal reflux disease without esophagitis; I25.10 Atherosclerotic heart disease of native coronary artery without angina pectoris; I10 Essential (primary) hypertension; E78.5 Hyperlipidemia, unspecified; E10.40 Type 1 diabetes mellitus with diabetic neuropathy, unspecified; E87.1 Hypo-osmolality and hyponatremia; G47.00 Insomnia, unspecified; F43.10 Post-traumatic stress disorder, unspecified; Z91.041 Radiographic dye allergy status; Z88.6 Allergy status to analgesic agent; Z88.8 Allergy status to other drugs, medicaments and biological substances; Z79.82 Long term (current) use of aspirin; Z79.84 Long term (current) use of oral hypoglycemic drugs; Z79.4 Long term (current) use of insulin; Z79.899 Other long term (current) drug therapy; Z90.49 Acquired absence of other specified parts of digestive tract; Z90.710 Acquired absence of both cervix and uterus; Z90.89 Acquired absence of other organs; Z98.51 Tubal ligation status; Z87.891 Personal history of nicotine dependence

== ENCOUNTER → 2017-06-16 | Outpatient (CLI) | payer OTHER | END | disposition home or self-care (01) | LOC: LAB 11:46 | DX: R53.83 Other fatigue (principal) ==

== ENCOUNTER 2017-07-01 19:32 | Emergency (ER) | payer OTHER ==
[~2017-07-01] VITALS: Ht 165.1 cm; Wt 93.9 kg
[2017-07-01 19:37] VITALS: BP 154/85
== END 2017-07-01 21:35 | disposition left against medical advice (07) ==
LOC: ED 19:32
DX: R55 Syncope and collapse (principal); Z53.21 Procedure and treatment not carried out due to patient leaving prior to being seen by health care provider

== ENCOUNTER → 2017-07-03 | Outpatient (CLI) | payer OTHER | END | disposition home or self-care (01) | LOC: CT 11:00 | DX: R91.1 Solitary pulmonary nodule (principal); I25.10 Atherosclerotic heart disease of native coronary artery without angina pectoris; J39.8 Other specified diseases of upper respiratory tract; L02.91 Cutaneous abscess, unspecified; J38.6 Stenosis of larynx; Z90.49 Acquired absence of other specified parts of digestive tract ==

== ENCOUNTER → 2017-07-19 | Day surgery (SDC) | payer OTHER ==
[~2017-07-19] VITALS: Ht 165.1 cm; Wt 93.9 kg
[~2017-07-19] MED LIST changes: +CLONAZEPAM0.5 M2 PO; +HUMALOG100 UNIT/2 SC; +LANTUS SOL100 UNIT/1 SC; +Lopressor25 MG PO
--- NOTE | ~2017-07-19 | PROC NOTE ---
[place], [place] PROCEDURE NOTE NAME: KT BUSTILLOS [facility] #: [id number] UNIT #: [id number] ROOM: DOCTOR: RASHI WAGGONER MD,SANTANA BIRTHDATE: [birth year] DOS: 07/19/2017 PROCEDURE: Bronchoscopy. PREOPERATIVE DIAGNOSES: The patient with symptoms of shortness of breath with possible stenosis of the major airways with past traumatic intubation. POSTOPERATIVE DIAGNOSES: There was no evidence of any airway narrowing noted. Vocal cords also noted symmetrical movement with the normal laryngeal exam with apparent assessment. PROCEDURE DESCRIPTION: Informed consent obtained for the patient. The patient brought to the OR and placed in supine position. Conscious sedation administered by the Anesthesia Department. After that, airway introduced into the mouth in the supine position with conscious sedation. Bronchoscope advanced into the airway into laryngeal area. Epiglottis were noted normal U shape and somewhat large. The vocal cord noted normal. ____ moving symmetrically with movements. Bronchoscope advanced to vocal cord and tracheal lumen shows a small amount of mucus secretion suctioned out. Breanna noted sharp. Right upper, right middle, right lower, left upper, lingular lower bronchi were all examined. There was no evidence of any subglottic stenosis or any other major airways. Procedure well tolerated by the patient without difficulty. Postoperative findings were discussed with the patient's mother in detail in the recovery room. She will be assessed in the office for further visit as well. The findings were briefly discussed with the patient as well in the recovery room. SANTANA MARKHAM MD CM:PROCNOTE:PROCEDURE NOTE 1219 [id number] SANTANA WAGGONER MD
[2017-07-19 08:04] VITALS: BP 118/87
[2017-07-19 09:00] VITALS: BP 107/69
[2017-07-19 09:15] VITALS: BP 105/73
[2017-07-19 09:30] VITALS: BP 107/70
[2017-07-20 15:07] LABS: ACID FAST SMEAR Negative (.); ACID FAST SPEC PROCESSING Concentration (.)
== END | disposition home or self-care (01) ==
LOC: SDC 07-11 17:00
PROVIDERS: Internal Medicine Critical Care Medicine
DX: R06.00 Dyspnea, unspecified (principal); I10 Essential (primary) hypertension; E11.9 Type 2 diabetes mellitus without complications; F41.9 Anxiety disorder, unspecified; I25.2 Old myocardial infarction; Z90.710 Acquired absence of both cervix and uterus; Z95.5 Presence of coronary angioplasty implant and graft; Z90.49 Acquired absence of other specified parts of digestive tract; Z83.3 Family history of diabetes mellitus; Z80.9 Family history of malignant neoplasm, unspecified; Z87.891 Personal history of nicotine dependence; K21.9 Gastro-esophageal reflux disease without esophagitis; I25.10 Atherosclerotic heart disease of native coronary artery without angina pectoris; Z98.890 Other specified postprocedural states; Z79.84 Long term (current) use of oral hypoglycemic drugs

== ENCOUNTER 2017-07-25 19:03 | Inpatient (IN) | payer OTHER ==
[~2017-07-25] VITALS: Ht 165.1 cm; Wt 95.5 kg
--- NOTE | ~2017-07-25 | EKG ---
[place], [place] ELECTROCARDIOGRAM REPORT NAME: KT BUSTILLOS UNIT #: [id number] ROOM: 412 DOCTOR: ERICKA WATSON,KARISSA BIRTHDATE: [birth year] DOS: 07/25/2017 TIME: 1902. IMPRESSION: 1. Sinus rhythm. 2. Low voltage complexes. 3. Normal QT interval. KARISSA BARNETT MD CM:EKGRPT:ELECTROCARDIOGRAM REPORT 1341 1526 KARISSA BARNETT MD
--- NOTE | ~2017-07-25 | CON ---
[place], [place] REPORT OF CONSULTATION NAME: KT BUSTILLOS [facility] #: [id number] UNIT #: [id number] ROOM: 412 DOCTOR: HAKEEM VEGA MD BIRTHDATE: [birth year] DOS: 07/26/2017 HISTORY OF PRESENT ILLNESS: This is a 52-year-old -[place] woman with a history of coronary artery disease. She had a stent deployed in 2006 at [facility] in [place]. She follows with Dr. Kumari and he performed a Lexiscan Cardiolite study earlier this year, which was normal and rather about 3 months ago, she had a diagnostic heart catheterization done in [facility] and no critical aortic stenosis identified except one in a very small branch. She had a couple of heart attacks in the remote past with no heart failure. Echocardiogram had shown normal LV systolic function previously. She has chronic kidney disease stage 3, diabetic neuropathy and nephropathy, essential hypertension, hyperlipidemia, diabetes mellitus, obesity, posttraumatic stress test syndrome, had epilepsy, TIA, but when I asked if she had a stroke or TIA, her answer was negative and GERD and obstructive sleep apnea and uses a CPAP which Dr. Cabrales recommended to continue. She quit smoking recently, does not use alcoholic beverages, lives at home. Yesterday evening, she was having a meal, I believe, she had stake, about 20 minutes after that, she developed epigastric pain and heaviness that would not let her up. She did not have any anterior chest pain, may have been a little discomfort in the epigastric area, but mostly in the epigastrium and there was no radiation of this into the back, neck or the shoulder and did not have any sweating, nausea or any palpitations. She was given a GI cocktail and within 10 minutes, her symptoms disappeared. She is a very active lady who does not recall having had any exertional chest pain that had returned recently. She has some exertional shortness of breath when she had been a smoker. No PND, orthopnea or swelling of the lower extremities. She uses CPAP at night. HOME MEDICATIONS: Include Proventil HFA, aspirin, buspirone, clonazepam, clopidogrel 75 daily, lisinopril 5 mg daily, metoprolol tartrate 25 b.i.d., rosuvastatin 20 mg daily, Topamax 25 mg b.i.d., trazodone 50 mg at night, metformin 500 b.i.d., loratadine 10 mg daily and Imdur 30 mg q.a.m. and Humalog 8 units subQ p.r.n. and also Humalog. PHYSICAL EXAMINATION: GENERAL: This reveals a patient who is moderately obese. She is very pleasant, alert. There is no anemia, thyromegaly, finger clubbing. VITAL SIGNS: Pulse is regular at 72 beats per minute, blood pressure 126/78. NECK: JVP is normal. There is no carotid bruit. HEART: There is no cardiomegaly and no murmurs were present. EXTREMITIES: She has excellent pedal pulses and no edema in the lower extremities. RESPIRATORY: Lungs are clear to percussion and auscultation with mild reduced breath sounds with occasional abnormal sound in the right lower zone. ABDOMEN: Supple, nontender. No bruit or pulsatile mass. LABORATORY DATA: Two ECGs showed normal sinus rhythm and a normal pattern. Troponin I levels are also normal and chest x-ray was also normal. I walked her in the hallway at a brisk pace and she did maybe 500 yards [place], [place] REPORT OF CONSULTATION [facility]: [facility] [id number] UNIT #: [id number] ROOM: [facility] DOCTOR: HAKEEM VEGA MD BIRTHDATE: [birth year] and had no shortness of breath or chest discomfort. IMPRESSION: This patient has epigastric pain. I think this may have been related to food, may have had some dyspepsia. Apparently, GI cocktail result of symptoms within 10 minutes and now with brisk walking, she has no symptoms and had a stress test 3 months ago, which did not require any intervention. From cardiac standpoint, she may be discharged home with followup with Dr. Kumari. I thank you on behalf of Dr. Kumari for this consult. HAKEEM VEGA MD CM:CONSTR:REPORT OF CONSULTATION 0925 07/26/17 1422 interface GIORGIO KUMARI MD
[2017-07-25 19:06] VITALS: BP 143/82
[2017-07-25 19:23] LABS: BASO % 0.5 % (0.0-1.0); EOS # 0.2 10*3/uL (0.0-0.4); EOS % 2.6 % (1.0-4.0); HEMATOCRIT 31.9 % (37.0-47.0); HEMOGLOBIN 10.3 g/dl (12.0-16.0); LYMPH # 2.7 10*3/uL (1.3-4.4); LYMPH % 32.6 % (27.0-41.0); MEAN CELL VOLUME 76.9 fl (81.0-99.0); MEAN CORPUSCULAR HGB 24.8 pg (27.0-31.0); MEAN CORPUSCULAR HGB CONC 32.3 g/dl (33.0-37.0); MEAN PLATELET VOLUME 9.6 fl (9.6-12.3); MONO # 0.4 10*3/uL (0.1-1.0); MONO % 4.5 % (3.0-9.0); NEUT % 59.7 % (47.0-73.0); PLATELET COUNT AUTOMATED 305 10*3/uL (130-400); RED BLOOD COUNT 4.15 10*6/uL (4.10-5.10); RED CELL DISTRI WIDTH 15.1 % (0-14.5); WHITE BLOOD COUNT 8.4 10*3/uL (4.8-10.8)
[2017-07-25 19:34] LABS: ACT PARTIAL THROMBO TIME 22.5 SECONDS (20.8-31.5)
[2017-07-25 19:44] VITALS: BP 129/104
[2017-07-25 19:48] LABS: ALBUMIN 3.2 gm/dl (3.1-4.5); ALKALINE PHOSPHATASE 119 U/L (45-117); BUN 13 mg/dl (7-24); CHLORIDE 103 mmol/L (98-107); CREATININE 1.13 mg/dL (0.55-1.02); POTASSIUM 3.9 mmol/L (3.5-5.1); SGOT/AST 16 IU/L (3-35); SGPT/ALT 19 U/L (12-78); SODIUM 135 mmol/L (136-145); TOTAL PROTEIN 6.8 gm/dL (6.4-8.2)
[2017-07-25 19:50] LABS: TROPONIN I < 0.015 ng/ml (<0.045)
[2017-07-25 20:17] VITALS: BP 125/61
[2017-07-25 20:56] VITALS: BP 108/55
[2017-07-25] MEDS ORDERED: HUMALOG (21:01)
[2017-07-25 21:15] VITALS: BP 102/70
[2017-07-25 22:00] VITALS: BP 102/70
[2017-07-26 06:41] LABS: BASO % 0.5 % (0.0-1.0); EOS # 0.2 10*3/uL (0.0-0.4); EOS % 3.9 % (1.0-4.0); HEMATOCRIT 34.3 % (37.0-47.0); HEMOGLOBIN 10.8 g/dl (12.0-16.0); LYMPH # 2.4 10*3/uL (1.3-4.4); LYMPH % 41.1 % (27.0-41.0); MEAN CELL VOLUME 78.7 fl (81.0-99.0); MEAN CORPUSCULAR HGB 24.8 pg (27.0-31.0); MEAN CORPUSCULAR HGB CONC 31.5 g/dl (33.0-37.0); MEAN PLATELET VOLUME 9.5 fl (9.6-12.3); MONO # 0.3 10*3/uL (0.1-1.0); MONO % 5.6 % (3.0-9.0); NEUT # 2.9 10*3/uL (2.3-7.9); NEUT % 48.7 % (47.0-73.0); PLATELET COUNT AUTOMATED 283 10*3/uL (130-400); RED BLOOD COUNT 4.36 10*6/uL (4.10-5.10); RED CELL DISTRI WIDTH 14.8 % (0-14.5); WHITE BLOOD COUNT 5.9 10*3/uL (4.8-10.8)
[2017-07-26 07:18] LABS: ACT PARTIAL THROMBO TIME 23.1 SECONDS (20.8-31.5)
[2017-07-26 08:00] VITALS: BP 126/78
[2017-07-26 08:49] LABS: ALKALINE PHOSPHATASE 106 U/L (45-117); BUN 14 mg/dl (7-24); CHLORIDE 108 mmol/L (98-107); CREATININE 0.94 mg/dL (0.55-1.02); PHOSPHOROUS 4.7 mg/dL (2.5-4.9); POTASSIUM 3.6 mmol/L (3.5-5.1); SGOT/AST 11 IU/L (3-35); SGPT/ALT 18 U/L (12-78); SODIUM 142 mmol/L (136-145); TOTAL PROTEIN 6.6 gm/dL (6.4-8.2)
== END 2017-07-26 13:28 | disposition home or self-care (01) | DRG 392 ==
LOC: ED 19:03 → 4E 20:33 → EDHOLD 20:33 → 4E 20:52
PROVIDERS: Family Medicine; Student in an Organized Health Care Education/Training Program
DX: K21.9 Gastro-esophageal reflux disease without esophagitis (principal); E11.40 Type 2 diabetes mellitus with diabetic neuropathy, unspecified; E11.22 Type 2 diabetes mellitus with diabetic chronic kidney disease; E11.65 Type 2 diabetes mellitus with hyperglycemia; D50.9 Iron deficiency anemia, unspecified; F17.210 Nicotine dependence, cigarettes, uncomplicated; E87.1 Hypo-osmolality and hyponatremia; E44.1 Mild protein-calorie malnutrition; N18.3 Chronic kidney disease, stage 3 (moderate); E78.5 Hyperlipidemia, unspecified; I25.10 Atherosclerotic heart disease of native coronary artery without angina pectoris; F41.9 Anxiety disorder, unspecified; F43.10 Post-traumatic stress disorder, unspecified; E83.41 Hypermagnesemia; H40.9 Unspecified glaucoma; R10.13 Epigastric pain; M19.90 Unspecified osteoarthritis, unspecified site; E66.9 Obesity, unspecified; G47.00 Insomnia, unspecified; I12.9 Hypertensive chronic kidney disease with stage 1 through stage 4 chronic kidney disease, or unspecified chronic kidney disease; Z90.710 Acquired absence of both cervix and uterus; Z90.49 Acquired absence of other specified parts of digestive tract; Z95.5 Presence of coronary angioplasty implant and graft; Z71.6 Tobacco abuse counseling; Z82.61 Family history of arthritis; Z80.0 Family history of malignant neoplasm of digestive organs; Z88.8 Allergy status to other drugs, medicaments and biological substances; Z91.041 Radiographic dye allergy status; Z79.51 Long term (current) use of inhaled steroids; Z79.82 Long term (current) use of aspirin; Z79.4 Long term (current) use of insulin; Z79.899 Other long term (current) drug therapy; Z68.35 Body mass index [BMI] 35.0-35.9, adult; I25.2 Old myocardial infarction

== ENCOUNTER 2017-08-13 10:11 | Emergency (ER) | payer OTHER ==
[~2017-08-13] VITALS: Ht 165.1 cm; Wt 94.3 kg
[~2017-08-13 10:11] MED LIST changes: +HUMALOG
[2017-08-13 10:21] VITALS: BP 136/82
[2017-08-13] MEDS ORDERED: AVPAK AZITHROM250 M1 PO (10:26)
[2017-08-14] MEDS ORDERED: LANTUS SOL100 UNIT/1 SQ (21:42)
== END 2017-08-13 11:07 | disposition home or self-care (01) ==
LOC: ED 10:11
DX: H66.92 Otitis media, unspecified, left ear (principal); I25.10 Atherosclerotic heart disease of native coronary artery without angina pectoris; E11.22 Type 2 diabetes mellitus with diabetic chronic kidney disease; I12.9 Hypertensive chronic kidney disease with stage 1 through stage 4 chronic kidney disease, or unspecified chronic kidney disease; N18.3 Chronic kidney disease, stage 3 (moderate); E11.40 Type 2 diabetes mellitus with diabetic neuropathy, unspecified; E78.5 Hyperlipidemia, unspecified; G47.00 Insomnia, unspecified; F43.10 Post-traumatic stress disorder, unspecified; F41.9 Anxiety disorder, unspecified; K21.9 Gastro-esophageal reflux disease without esophagitis; E83.41 Hypermagnesemia; E87.1 Hypo-osmolality and hyponatremia; F17.210 Nicotine dependence, cigarettes, uncomplicated; Z91.041 Radiographic dye allergy status; Z88.8 Allergy status to other drugs, medicaments and biological substances; Z79.82 Long term (current) use of aspirin; Z79.84 Long term (current) use of oral hypoglycemic drugs; Z79.4 Long term (current) use of insulin; Z79.899 Other long term (current) drug therapy; Z86.73 Personal history of transient ischemic attack (TIA), and cerebral infarction without residual deficits; Z90.49 Acquired absence of other specified parts of digestive tract; Z90.710 Acquired absence of both cervix and uterus; Z98.51 Tubal ligation status

== ENCOUNTER 2017-08-14 17:31 | Inpatient (IN) | payer OTHER ==
[~2017-08-14] VITALS: Ht 165.1 cm; Wt 94.3 kg
--- NOTE | ~2017-08-14 | CON ---
[place], [place] REPORT OF CONSULTATION NAME: KT BUSTILLOS UNIT #: [id number] ROOM: 516 DOCTOR: GIORGIO KUMARI MD BIRTHDATE: [birth year] DOS: 08/15/2017 REASON FOR CONSULTATION: Chest discomfort. HISTORY OF PRESENT ILLNESS: The patient is a 52-year-old female with a known history of coronary artery disease, previous stent placement. The patient had a stent placed in December and had a repeat catheterization a few months ago showed mild disease in one of the small vessels was just done in December. The patient has been maximized with medications. The patient continues to smoke. Her last ejection fraction was excellent. Cardiac enzymes are negative. No acute EKG changes suggestion of myocardial ischemia. PAST MEDICAL HISTORY: Coronary artery disease, diabetes, hypertension, hyperlipidemia, history of myocardial infarction and stent placement. PAST SURGICAL HISTORY: Cardiac catheterization, stent placement, section, cholecystectomy, thoracic surgery. SOCIAL HISTORY: Does not drink alcohol. Permanent smoker, 6 cigarettes a day, dropped down to 2 packs per day. FAMILY HISTORY: Positive for coronary artery disease. ALLERGIES: IVP DYE. HOME MEDICATIONS: Clopidogrel, isosorbide mononitrate, metoprolol, metformin, and rosuvastatin. REVIEW OF SYSTEMS: CONSTITUTIONAL: No fever, no chills. HEENT: No visual disturbances or hearing problems. CARDIOVASCULAR: As per HPI. GASTROINTESTINAL: No nausea, no vomiting. GENITOURINARY: No dysuria. NEUROLOGICAL: Stable. PHYSICAL EXAMINATION: VITAL SIGNS: Blood pressure is 110/70. She is in sinus rhythm. NECK: Supple, no JVD. LUNGS: Diminished breath sounds. HEART: Sounds are regular. NEUROLOGIC: Stable. LABORATORY DATA: Electrolytes are normal. Creatinine is normal. Troponins have been negative. Hemoglobin and hematocrit are within normal limits. EKG sinus with nonspecific ST-T waves. IMAGES: CT scan is normal. IMPRESSION: Atypical chest pain, history of tobacco abuse, maxillary sinusitis, [place], [place] REPORT OF CONSULTATION NAME: KT BUSTILLOS UNIT #: [id number] ROOM: 516 DOCTOR: GIORGIO KUMARI MD BIRTHDATE: [birth year] gastroesophageal reflux disease, history of syncope, lymphedema, lymphopenia, tachycardia. RECOMMENDATIONS: Continue the present medication. Increase the isosorbide to 60 mg daily. The patient is tachycardic, started back on her metoprolol, beta blockers 25 b.i.d. or 50 b.i.d. Monitor the heart rate and blood pressure closely and I will follow up. Thank you for this interesting consultation. GIORGIO KUMARI MD CM:CONSTR:REPORT OF CONSULTATION 0746 08/15/17 0813 interface
[~2017-08-14 17:31] MED LIST changes: +AVPAK AZITHROM250 M1 PO
[2017-08-14 17:32] VITALS: BP 162/102
[2017-08-14 18:40] VITALS: BP 136/88
[2017-08-14 18:51] LABS: BASO % 0.4 % (0.0-1.0); EOS # 0.3 10*3/uL (0.0-0.4); EOS % 3.1 % (1.0-4.0); HEMOGLOBIN 11.3 g/dl (12.0-16.0); LYMPH # 2.4 10*3/uL (1.3-4.4); LYMPH % 26.2 % (27.0-41.0); MEAN CELL VOLUME 74.9 fl (81.0-99.0); MEAN CORPUSCULAR HGB 24.2 pg (27.0-31.0); MEAN CORPUSCULAR HGB CONC 32.3 g/dl (33.0-37.0); MEAN PLATELET VOLUME 9.6 fl (9.6-12.3); MONO # 0.4 10*3/uL (0.1-1.0); MONO % 4.8 % (3.0-9.0); NEUT # 5.9 10*3/uL (2.3-7.9); NEUT % 65.2 % (47.0-73.0); PLATELET COUNT AUTOMATED 301 10*3/uL (130-400); RED BLOOD COUNT 4.67 10*6/uL (4.10-5.10); RED CELL DISTRI WIDTH 14.8 % (0-14.5); WHITE BLOOD COUNT 9.1 10*3/uL (4.8-10.8)
[2017-08-14 19:09] LABS: ALBUMIN 3.6 gm/dl (3.1-4.5); ALKALINE PHOSPHATASE 140 U/L (45-117); BUN 13 mg/dl (7-24); CHLORIDE 99 mmol/L (98-107); CREATININE 0.98 mg/dL (0.55-1.02); POTASSIUM 3.7 mmol/L (3.5-5.1); SGOT/AST 8 IU/L (3-35); SGPT/ALT 16 U/L (12-78); SODIUM 136 mmol/L (136-145); TOTAL PROTEIN 7.6 gm/dL (6.4-8.2)
[2017-08-14 19:13] LABS: ACT PARTIAL THROMBO TIME 22.2 SECONDS (20.8-31.5); INTERNATIONAL NORM RATIO 0.9 (2.0-3.5)
[2017-08-14 19:14] LABS: TROPONIN I < 0.015 ng/ml (<0.045)
[2017-08-14 19:20] VITALS: BP 123/72
[2017-08-14 20:20] VITALS: BP 132/78
[2017-08-14 20:41] LABS: BILIRUBIN NEGATIVE (NEGATIVE); BLOOD NEGATIVE (NEGATIVE); CLARITY SL CLOUDY (CLEAR); COLOR YELLOW (YELLOW); GLUCOSE 3+ (NEGATIVE); KETONE NEGATIVE (NEGATIVE); LEUKO ESTERASE TRACE (NEGATIVE); NITRITE NEGATIVE (NEGATIVE); PH 5.5 (5.0-9.0); UROBILINOGEN 0.2 E.U./dl (0.2-1.0)
[2017-08-14 20:47] LABS: URINE AMPHETAMINES < 1000 (1000ng/ml); URINE BARBITURATES < 200 (200ng/ml); URINE BENZODIAZEPINES < 200 (200ng/ml); URINE CANNABINOIDS (THC) < 50 (50ng/ml); URINE COCAINE < 300 (300ng/ml); URINE METHADONE < 300 (300ng/ml); URINE OPIATES > 300 (300ng/ml)
[2017-08-14 20:48] LABS: URINE PHENCYCLIDINE < 25 (25ng/ml)
[2017-08-14 20:51] LABS: BACTERIA 3+; RBC 0-2 rbc/hpf (0-2); WBC 16-20 wbc/hpf (0-5)
[2017-08-14] MEDS ORDERED: LANTUS SOL100 UNIT/1 SQ (21:42)
[2017-08-15] VITALS: BP 139/82
[2017-08-15 08:00] VITALS: BP 142/79
[2017-08-15 08:18] LABS: BASO % 0.6 % (0.0-1.0); EOS # 0.3 10*3/uL (0.0-0.4); EOS % 4.3 % (1.0-4.0); HEMATOCRIT 33.8 % (37.0-47.0); HEMOGLOBIN 10.8 g/dl (12.0-16.0); LYMPH # 2.2 10*3/uL (1.3-4.4); LYMPH % 33.5 % (27.0-41.0); MEAN CORPUSCULAR HGB 24.3 pg (27.0-31.0); MEAN PLATELET VOLUME 9.4 fl (9.6-12.3); MONO # 0.3 10*3/uL (0.1-1.0); MONO % 4.8 % (3.0-9.0); NEUT # 3.7 10*3/uL (2.3-7.9); NEUT % 56.6 % (47.0-73.0); PLATELET COUNT AUTOMATED 274 10*3/uL (130-400); RED BLOOD COUNT 4.45 10*6/uL (4.10-5.10); RED CELL DISTRI WIDTH 14.9 % (0-14.5); WHITE BLOOD COUNT 6.5 10*3/uL (4.8-10.8)
[2017-08-15 08:34] LABS: ALBUMIN 3.2 gm/dl (3.1-4.5); BUN 10 mg/dl (7-24); CHLORIDE 107 mmol/L (98-107); POTASSIUM 3.7 mmol/L (3.5-5.1); SGOT/AST 9 IU/L (3-35); SGPT/ALT 17 U/L (12-78); SODIUM 141 mmol/L (136-145)
[2017-08-15 08:42] LABS: ALKALINE PHOSPHATASE 119 U/L (45-117); CHOLESTEROL 123 mg/dL (<200); CREATININE 0.79 mg/dL (0.55-1.02); HDL CHOLESTEROL 37 mg/dl (40-60); LDL CHOLESTEROL 49 mg/dL (9-159); PHOSPHOROUS 3.9 mg/dL (2.5-4.9); THYROID STIM HORMONE (HS) 0.897 uIU/ml (0.358-4.75); TOTAL PROTEIN 6.9 gm/dL (6.4-8.2); TRIGLYCERIDES 186 mg/dl (<150); VLDL CHOLESTEROL 37 mg/dL (6-40)
[2017-08-15 09:27] LABS: VITAMIN D, 25-HYDROXY 14.1 ng/mL (30-100)
[2017-08-15 12:00] VITALS: BP 123/62
[2017-08-15] MEDS ORDERED: AUGMENTIN 875875 MG PO (13:25)
[2017-08-15] MEDS ORDERED: IMDUR SA60 M1 PO (13:25)
== END 2017-08-15 14:19 | disposition home or self-care (01) | DRG 872 ==
LOC: ED 17:31 → EDHOLD 19:45 → 5E 19:45
PROVIDERS: Hospitalist; Student in an Organized Health Care Education/Training Program
DX: A41.9 Sepsis, unspecified organism (principal); E11.22 Type 2 diabetes mellitus with diabetic chronic kidney disease; E87.2 Acidosis; E11.42 Type 2 diabetes mellitus with diabetic polyneuropathy; N18.3 Chronic kidney disease, stage 3 (moderate); R65.20 Severe sepsis without septic shock; E11.65 Type 2 diabetes mellitus with hyperglycemia; J01.00 Acute maxillary sinusitis, unspecified; R55 Syncope and collapse; K21.9 Gastro-esophageal reflux disease without esophagitis; R74.8 Abnormal levels of other serum enzymes; F17.200 Nicotine dependence, unspecified, uncomplicated; E66.09 Other obesity due to excess calories; I12.9 Hypertensive chronic kidney disease with stage 1 through stage 4 chronic kidney disease, or unspecified chronic kidney disease; F43.10 Post-traumatic stress disorder, unspecified; E78.5 Hyperlipidemia, unspecified; G40.901 Epilepsy, unspecified, not intractable, with status epilepticus; R07.89 Other chest pain; F41.9 Anxiety disorder, unspecified; D72.810 Lymphocytopenia; M19.90 Unspecified osteoarthritis, unspecified site; I25.10 Atherosclerotic heart disease of native coronary artery without angina pectoris; H40.9 Unspecified glaucoma; Z86.73 Personal history of transient ischemic attack (TIA), and cerebral infarction without residual deficits; Z90.49 Acquired absence of other specified parts of digestive tract; I25.2 Old myocardial infarction; Z80.0 Family history of malignant neoplasm of digestive organs; Z79.899 Other long term (current) drug therapy; Z82.61 Family history of arthritis; Z88.8 Allergy status to other drugs, medicaments and biological substances; Z91.041 Radiographic dye allergy status; Z79.82 Long term (current) use of aspirin; Z79.4 Long term (current) use of insulin; Z95.5 Presence of coronary angioplasty implant and graft; Z71.6 Tobacco abuse counseling; Z68.34 Body mass index [BMI] 34.0-34.9, adult; Z90.710 Acquired absence of both cervix and uterus; D64.9 Anemia, unspecified

== ENCOUNTER 2017-08-28 20:39 | Emergency (ER) | payer OTHER ==
[~2017-08-28] VITALS: Wt 94.3 kg
[~2017-08-28 20:39] MED LIST changes: +IMDUR SA60 M1 PO; +LANTUS SOL100 UNIT/1 SQ
[2017-08-28 20:55] VITALS: BP 150/77
[2017-08-28] MEDS ORDERED: KENALOG 0.1%80 GM T (21:30)
== END 2017-08-28 21:43 | disposition home or self-care (01) ==
LOC: ED 20:39
DX: L30.8 Other specified dermatitis (principal); F17.210 Nicotine dependence, cigarettes, uncomplicated; Z90.710 Acquired absence of both cervix and uterus; Z98.890 Other specified postprocedural states; Z95.5 Presence of coronary angioplasty implant and graft; Z98.51 Tubal ligation status; Z79.4 Long term (current) use of insulin; Z79.899 Other long term (current) drug therapy; Z79.82 Long term (current) use of aspirin; Z91.041 Radiographic dye allergy status; Z88.6 Allergy status to analgesic agent

== ENCOUNTER 2017-09-20 09:38 | Emergency (ER) | payer OTHER ==
[~2017-09-20] VITALS: Ht 165.1 cm; Wt 94.3 kg
[~2017-09-20 09:38] MED LIST changes: +KENALOG 0.1%80 GM T; +METFORMIN HYDR750 MG PO; -METFORMIN500 MG PO; +PLAVIX75 M1 PO
[2017-09-20 10:17] VITALS: BP 124/75
[2017-09-20] MEDS ORDERED: ROBITUSSIN DM 105 ML PO (11:48)
[2017-09-20] MEDS ORDERED: PREDNISONE20 M1 PO (11:48)
[2017-09-20] MEDS ORDERED: ZYRTEC10 M3 PO (11:49)
== END 2017-09-20 11:48 | disposition home or self-care (01) ==
LOC: ED 09:38
DX: B34.9 Viral infection, unspecified (principal); F17.210 Nicotine dependence, cigarettes, uncomplicated; Z90.710 Acquired absence of both cervix and uterus; Z98.890 Other specified postprocedural states; Z90.49 Acquired absence of other specified parts of digestive tract; Z79.82 Long term (current) use of aspirin; Z79.4 Long term (current) use of insulin; Z79.899 Other long term (current) drug therapy; Z88.8 Allergy status to other drugs, medicaments and biological substances; Z88.6 Allergy status to analgesic agent; Z91.041 Radiographic dye allergy status

== ENCOUNTER 2017-09-22 01:18 | Inpatient (IN) | payer OTHER ==
[2017-09-22] VITALS (17 sets, daily range): BP systolic 100–142; BP diastolic 52–83
[~2017-09-22] VITALS: Ht 165.1 cm; Wt 94.8 kg
[~2017-09-22 01:18] MED LIST changes: +PREDNISONE20 M1 PO; +ROBITUSSIN DM 105 ML PO; +ZYRTEC10 M3 PO
[2017-09-22 01:56] LABS: BILIRUBIN NEGATIVE (NEGATIVE); BLOOD NEGATIVE (NEGATIVE); CLARITY CLEAR (CLEAR); COLOR YELLOW (YELLOW); GLUCOSE 3+ (NEGATIVE); KETONE NEGATIVE (NEGATIVE); LEUKO ESTERASE 1+ (NEGATIVE); NITRITE POSITIVE (NEGATIVE); SPECIFIC GRAVITY <= 1.005 (1.005-1.030); UROBILINOGEN 0.2 E.U./dl (0.2-1.0)
[2017-09-22 01:57] LABS: BASO % 0.3 % (0.0-1.0); EOS # 0.1 10*3/uL (0.0-0.4); EOS % 0.6 % (1.0-4.0); HEMATOCRIT 34.2 % (37.0-47.0); HEMOGLOBIN 10.5 g/dl (12.0-16.0); LYMPH # 1.6 10*3/uL (1.3-4.4); LYMPH % 14.9 % (27.0-41.0); MEAN CELL VOLUME 75.2 fl (81.0-99.0); MEAN CORPUSCULAR HGB 23.1 pg (27.0-31.0); MEAN CORPUSCULAR HGB CONC 30.7 g/dl (33.0-37.0); MEAN PLATELET VOLUME 9.6 fl (9.6-12.3); MONO # 0.4 10*3/uL (0.1-1.0); MONO % 3.3 % (3.0-9.0); NEUT # 8.5 10*3/uL (2.3-7.9); NEUT % 80.4 % (47.0-73.0); PLATELET COUNT AUTOMATED 342 10*3/uL (130-400); RED BLOOD COUNT 4.55 10*6/uL (4.10-5.10); RED CELL DISTRI WIDTH 14.8 % (0-14.5); WHITE BLOOD COUNT 10.5 10*3/uL (4.8-10.8)
[2017-09-22 02:03] LABS: BACTERIA 3+
[2017-09-22 02:04] LABS: WBC 16-20 wbc/hpf (0-5)
[2017-09-22 02:08] LABS: INTERNATIONAL NORM RATIO 0.9 (2.0-3.5)
[2017-09-22 02:13] LABS: ALBUMIN 3.4 gm/dl (3.1-4.5); ALKALINE PHOSPHATASE 140 U/L (45-117); BUN 17 mg/dl (7-24); CHLORIDE 99 mmol/L (98-107); CREATININE 1.54 mg/dL (0.55-1.02); SGOT/AST 10 IU/L (3-35); SGPT/ALT 16 U/L (12-78); SODIUM 135 mmol/L (136-145); TOTAL PROTEIN 7.7 gm/dL (6.4-8.2)
[2017-09-22 02:14] LABS: TROPONIN I < 0.015 ng/ml (<0.045)
[2017-09-22] MEDS ORDERED: IMDUR SA60 M1 PO (03:20)
[2017-09-22] MEDS ORDERED: VITAMIN D32000 UNIT PO (03:23)
[2017-09-22] MEDS ORDERED: TRESIBA FL200 UNIT/1 SQ (03:25)
[2017-09-22] MEDS ORDERED: TRULICITY0.75 MG/0. SC (03:26)
[2017-09-22 04:28] LABS: BASO % 0.2 % (0.0-1.0); EOS % 0.2 % (1.0-4.0); HEMATOCRIT 29.4 % (37.0-47.0); LYMPH # 1.4 10*3/uL (1.3-4.4); LYMPH % 16.1 % (27.0-41.0); MEAN CELL VOLUME 76.4 fl (81.0-99.0); MEAN CORPUSCULAR HGB 23.4 pg (27.0-31.0); MEAN CORPUSCULAR HGB CONC 30.6 g/dl (33.0-37.0); MEAN PLATELET VOLUME 9.2 fl (9.6-12.3); MONO # 0.2 10*3/uL (0.1-1.0); MONO % 2.4 % (3.0-9.0); NEUT # 7.1 10*3/uL (2.3-7.9); NEUT % 80.5 % (47.0-73.0); PLATELET COUNT AUTOMATED 289 10*3/uL (130-400); RED BLOOD COUNT 3.85 10*6/uL (4.10-5.10); RED CELL DISTRI WIDTH 14.6 % (0-14.5); WHITE BLOOD COUNT 8.8 10*3/uL (4.8-10.8)
[2017-09-22 04:46] LABS: CREATININE 1.17 mg/dL (0.55-1.02); PHOSPHOROUS 3.3 mg/dL (2.5-4.9); POTASSIUM 4.2 mmol/L (3.5-5.1)
[2017-09-22 04:53] LABS: THYROID STIM HORMONE (HS) 0.154 uIU/ml (0.358-4.75)
[2017-09-22] MEDS ORDERED: METOPROLOL25 MG PO (07:36)
[2017-09-22 07:43] LABS: VITAMIN D, 25-HYDROXY 23.6 ng/mL (30-100)
[2017-09-22] MEDS ORDERED: HUMALOG100 UNIT/2 SQ (09:53)
[2017-09-22] MEDS ORDERED: PREDNISONE20 M1 PO (10:05)
[2017-09-23] VITALS: BP 130/69
[2017-09-23 06:05] LABS: BASO % 0.3 % (0.0-1.0); EOS % 0.1 % (1.0-4.0); HEMATOCRIT 31.7 % (37.0-47.0); HEMOGLOBIN 9.4 g/dl (12.0-16.0); LYMPH # 2.1 10*3/uL (1.3-4.4); MEAN CELL VOLUME 76.8 fl (81.0-99.0); MEAN CORPUSCULAR HGB 22.8 pg (27.0-31.0); MEAN CORPUSCULAR HGB CONC 29.7 g/dl (33.0-37.0); MEAN PLATELET VOLUME 9.9 fl (9.6-12.3); MONO # 0.4 10*3/uL (0.1-1.0); NEUT # 6.4 10*3/uL (2.3-7.9); NEUT % 71.8 % (47.0-73.0); PLATELET COUNT AUTOMATED 320 10*3/uL (130-400); RED BLOOD COUNT 4.13 10*6/uL (4.10-5.10); RED CELL DISTRI WIDTH 14.6 % (0-14.5)
[2017-09-23 06:28] LABS: ALBUMIN 2.9 gm/dl (3.1-4.5); ALKALINE PHOSPHATASE 102 U/L (45-117); BUN 17 mg/dl (7-24); CHLORIDE 106 mmol/L (98-107); CREATININE 0.92 mg/dL (0.55-1.02); POTASSIUM 4.1 mmol/L (3.5-5.1); SGOT/AST 17 IU/L (3-35); SGPT/ALT 31 U/L (12-78); SODIUM 140 mmol/L (136-145); TOTAL PROTEIN 6.6 gm/dL (6.4-8.2)
[2017-09-23 08:00] VITALS: BP 145/78
[2017-09-23 12:00] VITALS: BP 138/75
[2017-09-23] MEDS ORDERED: CIPRO500 MG PO (15:45)
[2017-09-23 16:00] VITALS: BP 118/66
== END 2017-09-23 16:30 | disposition home or self-care (01) | DRG 871 ==
LOC: ED 01:18 → ICCU 02:27 → 5E 13:35
PROVIDERS: Emergency Medicine Emergency Medical Services; Internal Medicine; Student in an Organized Health Care Education/Training Program
DX: A41.9 Sepsis, unspecified organism (principal); N17.1 Acute kidney failure with acute cortical necrosis; E11.22 Type 2 diabetes mellitus with diabetic chronic kidney disease; E11.40 Type 2 diabetes mellitus with diabetic neuropathy, unspecified; F17.200 Nicotine dependence, unspecified, uncomplicated; D50.9 Iron deficiency anemia, unspecified; E87.1 Hypo-osmolality and hyponatremia; N39.0 Urinary tract infection, site not specified; E11.65 Type 2 diabetes mellitus with hyperglycemia; F41.9 Anxiety disorder, unspecified; R07.9 Chest pain, unspecified; I25.118 Atherosclerotic heart disease of native coronary artery with other forms of angina pectoris; R65.20 Severe sepsis without septic shock; N18.3 Chronic kidney disease, stage 3 (moderate); K21.9 Gastro-esophageal reflux disease without esophagitis; I12.9 Hypertensive chronic kidney disease with stage 1 through stage 4 chronic kidney disease, or unspecified chronic kidney disease; M19.90 Unspecified osteoarthritis, unspecified site; H40.9 Unspecified glaucoma; E66.9 Obesity, unspecified; F43.10 Post-traumatic stress disorder, unspecified; Z79.4 Long term (current) use of insulin; Z71.6 Tobacco abuse counseling; Z95.5 Presence of coronary angioplasty implant and graft; Z86.73 Personal history of transient ischemic attack (TIA), and cerebral infarction without residual deficits; Z90.710 Acquired absence of both cervix and uterus; Z90.49 Acquired absence of other specified parts of digestive tract; Z80.0 Family history of malignant neoplasm of digestive organs; Z82.61 Family history of arthritis; Z88.8 Allergy status to other drugs, medicaments and biological substances; Z91.041 Radiographic dye allergy status; Z79.899 Other long term (current) drug therapy; Z79.82 Long term (current) use of aspirin; Z68.34 Body mass index [BMI] 34.0-34.9, adult

== ENCOUNTER 2017-09-23 19:46 | Emergency (ER) | payer OTHER ==
[~2017-09-23 19:46] MED LIST changes: +HUMALOG100 UNIT/2 SQ; +METOPROLOL25 MG PO; +TRESIBA FL200 UNIT/1 SQ; +TRULICITY0.75 MG/0. SC; +VITAMIN D32000 UNIT PO
== END 2017-09-23 23:00 | disposition left against medical advice (07) ==
LOC: ED 19:46
DX: R06.02 Shortness of breath (principal); Z53.21 Procedure and treatment not carried out due to patient leaving prior to being seen by health care provider

== ENCOUNTER 2017-10-12 11:22 | Inpatient (IN) | payer OTHER ==
[2017-10-12] VITALS (10 sets, daily range): BP systolic 88–116; BP diastolic 42–75
[~2017-10-12] VITALS: Ht 165.1 cm; Wt 93.2 kg
--- NOTE | ~2017-10-12 | CON ---
[place], [place] REPORT OF CONSULTATION NAME: KT BUSTILLOS [facility] #: [id number] UNIT #: [id number] ROOM: 512 DOCTOR[facility] BIRTHDATE: [birth year] DOS: 10/13/2017 CARDIOLOGY CONSULTATION HISTORY OF PRESENT ILLNESS: The patient came in to the emergency room with previous history of severe coronary artery disease, MO, diabetes mellitus, chronic kidney disease stage III, and presented at this time with not feeling well and fatigue. The patient was apparently shaken as her friends noted. The patient came to the emergency room and chest x-ray was unremarkable. The patient has history of type 2 diabetes with severe hypoglycemia and also ____, may be hypoglycemia could be cause for her presyncope. Her sugar has been stabilized. The patient also has a previous history of hyponatremia, tachycardia, could be hypovolemic and kind of constant with the tachyarrhythmias. The patient has history of hypertension also and past history of non-STEMI. The patient is ALLERGIC TO IVP DYE. The patient is currently treated for the diabetes and insulin coverage also been given. PHYSICAL EXAMINATION: VITAL SIGNS: Stable. Blood pressure 105/56 and heart rate is 80. No jugular venous distention noted. Enzymes were unremarkable. Hemoglobin is optimal. GFR is good. Hemoglobin is 11. LUNGS: Diminished breath sounds at bases. HEART: S1, S2. Regular. ABDOMEN: Soft. Color is good, not diaphoretic. EXTREMITIES: No cyanosis. RECTAL AND GENITAL: Deferred, unrelated. IMPRESSION AND PLAN: We will continue to follow the patient. Optimize the medical therapy and conservative management and explained to the patient. Continue the current therapy. Thank you very much for asking me to see the patient. I will follow the patient with you. ANGELIQUE RUFFIN MD CM:CONSTR:REPORT OF CONSULTATION 1013 10/14/17 1348 interface
[2017-10-12] MEDS ORDERED: KLONOPIN0.5 MG PO (11:36)
[2017-10-12] MEDS ORDERED: METFORMIN500 MG PO (11:38)
[2017-10-12] MEDS ORDERED: VITAMIN D31000 UNI1 PO (11:41)
[2017-10-12 12:31] LABS: BASO # 0.1 10*3/uL (0.0-0.1); BASO % 0.6 % (0.0-1.0); EOS # 0.2 10*3/uL (0.0-0.4); EOS % 2.9 % (1.0-4.0); HEMATOCRIT 35.3 % (37.0-47.0); LYMPH # 2.3 10*3/uL (1.3-4.4); LYMPH % 29.1 % (27.0-41.0); MEAN CELL VOLUME 74.9 fl (81.0-99.0); MEAN CORPUSCULAR HGB 23.4 pg (27.0-31.0); MEAN CORPUSCULAR HGB CONC 31.2 g/dl (33.0-37.0); MEAN PLATELET VOLUME 9.6 fl (9.6-12.3); MONO # 0.3 10*3/uL (0.1-1.0); MONO % 3.9 % (3.0-9.0); NEUT # 5.1 10*3/uL (2.3-7.9); NEUT % 63.3 % (47.0-73.0); PLATELET COUNT AUTOMATED 328 10*3/uL (130-400); RED BLOOD COUNT 4.71 10*6/uL (4.10-5.10); RED CELL DISTRI WIDTH 15.6 % (0-14.5)
[2017-10-12 12:46] LABS: ALBUMIN 3.3 gm/dl (3.1-4.5); ALKALINE PHOSPHATASE 123 U/L (45-117); BUN 14 mg/dl (7-24); CHLORIDE 100 mmol/L (98-107); CREATININE 1.09 mg/dL (0.55-1.02); LIPASE 410 U/L (73-393); POTASSIUM 4.5 mmol/L (3.5-5.1); SGOT/AST 10 IU/L (3-35); SGPT/ALT 18 U/L (12-78); SODIUM 133 mmol/L (136-145); TOTAL PROTEIN 7.3 gm/dL (6.4-8.2)
[2017-10-12 12:49] LABS: ACT PARTIAL THROMBO TIME 21.7 SECONDS (20.8-31.5); INTERNATIONAL NORM RATIO 0.9 (2.0-3.5)
[2017-10-12 12:51] LABS: TROPONIN I < 0.015 ng/ml (<0.045)
[2017-10-12 13:10] LABS: BILIRUBIN NEGATIVE (NEGATIVE); BLOOD NEGATIVE (NEGATIVE); CLARITY SL CLOUDY (CLEAR); COLOR YELLOW (YELLOW); GLUCOSE 3+ (NEGATIVE); KETONE NEGATIVE (NEGATIVE); LEUKO ESTERASE NEGATIVE (NEGATIVE); NITRITE NEGATIVE (NEGATIVE); PH 5.5 (5.0-9.0); SPECIFIC GRAVITY 1.015 (1.005-1.030); UROBILINOGEN 0.2 E.U./dl (0.2-1.0)
[2017-10-12 13:27] LABS: BACTERIA 2+; YEAST TRACE
[2017-10-12] MEDS ORDERED: TRESIBA FL100 UNIT/1 SC (16:56)
[2017-10-12] MEDS ORDERED: TRULICITY0.75 MG/0. SC (16:57)
[2017-10-12] MEDS ORDERED: BASAGLAR SC (17:05)
[2017-10-12] MEDS ORDERED: HUMALOG100 UNIT/1 SQ (17:05)
[2017-10-13] VITALS: BP 104/64
[2017-10-13 04:00] VITALS: BP 104/53
[2017-10-13 04:30] LABS: URINE CHLORIDE, RANDOM 15 mmol/L
[2017-10-13 06:54] LABS: BASO # 0.1 10*3/uL (0.0-0.1); BASO % 0.6 % (0.0-1.0); EOS # 0.3 10*3/uL (0.0-0.4); EOS % 3.3 % (1.0-4.0); HEMATOCRIT 35.3 % (37.0-47.0); HEMOGLOBIN 10.6 g/dl (12.0-16.0); LYMPH # 3.1 10*3/uL (1.3-4.4); LYMPH % 39.4 % (27.0-41.0); MEAN CELL VOLUME 76.1 fl (81.0-99.0); MEAN CORPUSCULAR HGB 22.8 pg (27.0-31.0); MEAN PLATELET VOLUME 9.5 fl (9.6-12.3); MONO # 0.5 10*3/uL (0.1-1.0); MONO % 5.7 % (3.0-9.0); NEUT % 50.6 % (47.0-73.0); PLATELET COUNT AUTOMATED 307 10*3/uL (130-400); RED BLOOD COUNT 4.64 10*6/uL (4.10-5.10); RED CELL DISTRI WIDTH 15.7 % (0-14.5); WHITE BLOOD COUNT 7.9 10*3/uL (4.8-10.8)
[2017-10-13 07:04] LABS: ALBUMIN 3.1 gm/dl (3.1-4.5); ALKALINE PHOSPHATASE 103 U/L (45-117); BUN 14 mg/dl (7-24); CHLORIDE 106 mmol/L (98-107); CREATININE 0.92 mg/dL (0.55-1.02); PHOSPHOROUS 5.1 mg/dL (2.5-4.9); POTASSIUM 3.8 mmol/L (3.5-5.1); SGOT/AST 11 IU/L (3-35); SGPT/ALT 17 U/L (12-78); SODIUM 142 mmol/L (136-145); TOTAL PROTEIN 6.7 gm/dL (6.4-8.2)
[2017-10-13 08:00] VITALS: BP 107/78
[2017-10-13 12:00] VITALS: BP 112/64
[2017-10-13] MEDS ORDERED: GUAIFENESIN1200 M1 PO (15:46)
== END 2017-10-13 16:00 | disposition home or self-care (01) | DRG 637 ==
LOC: ED 11:22 → 5E 14:45 → EDHOLD 14:45 → 5E 14:54
PROVIDERS: Emergency Medicine; Physician Assistant; Registered Nurse
DX: E11.65 Type 2 diabetes mellitus with hyperglycemia (principal); N17.0 Acute kidney failure with tubular necrosis; E11.22 Type 2 diabetes mellitus with diabetic chronic kidney disease; E11.49 Type 2 diabetes mellitus with other diabetic neurological complication; D50.9 Iron deficiency anemia, unspecified; F17.210 Nicotine dependence, cigarettes, uncomplicated; E87.1 Hypo-osmolality and hyponatremia; R55 Syncope and collapse; M19.90 Unspecified osteoarthritis, unspecified site; I12.9 Hypertensive chronic kidney disease with stage 1 through stage 4 chronic kidney disease, or unspecified chronic kidney disease; E66.9 Obesity, unspecified; E55.9 Vitamin D deficiency, unspecified; N18.3 Chronic kidney disease, stage 3 (moderate); F41.9 Anxiety disorder, unspecified; K21.9 Gastro-esophageal reflux disease without esophagitis; I25.10 Atherosclerotic heart disease of native coronary artery without angina pectoris; Z88.8 Allergy status to other drugs, medicaments and biological substances; Z91.041 Radiographic dye allergy status; Z79.51 Long term (current) use of inhaled steroids; Z79.899 Other long term (current) drug therapy; Z79.82 Long term (current) use of aspirin; Z90.710 Acquired absence of both cervix and uterus; Z90.49 Acquired absence of other specified parts of digestive tract; Z95.5 Presence of coronary angioplasty implant and graft; Z80.0 Family history of malignant neoplasm of digestive organs; Z82.61 Family history of arthritis; Z86.73 Personal history of transient ischemic attack (TIA), and cerebral infarction without residual deficits; I25.2 Old myocardial infarction; Z68.33 Body mass index [BMI] 33.0-33.9, adult; Z79.4 Long term (current) use of insulin

== ENCOUNTER → 2017-10-17 | Outpatient (CLI) | payer OTHER ==
[~2017-10-17] MED LIST changes: +BASAGLAR SC; +GUAIFENESIN1200 M1 PO; +HUMALOG100 UNIT/1 SQ; +KLONOPIN0.5 MG PO; +METFORMIN500 MG PO; +TRESIBA FL100 UNIT/1 SC; +VITAMIN D31000 UNI1 PO
--- NOTE | ~2017-10-17 | ST ---
[place], [place] EXERCISE STRESS TEST REPORT NAME: KT BUSTILLOS [facility] [id number] UNIT #: [id number] ROOM: DOCTOR: GIORGIO KUMARI MD BIRTHDATE: [birth year] DOS: 10/17/2017 LEXISCAN PORTION OF THE LEXISCAN CARDIOLITE Baseline cardiogram, sinus with poor R-wave progression, 0.4 mg Lexiscan, duration of 10 seconds. With Lexiscan, no new EKG changes. No chest pain. Mild shortness of breath. Blood pressure and heart rate are normal. Nuclear images will be reported separately. GIORGIO KUMARI MD CM:STRESS:EXERCISE STRESS TEST REPORT [id number] 0725 GIORGIO KUMARI MD
== END | disposition home or self-care (01) ==
LOC: CARD 10-10 01:23
DX: I99.8 Other disorder of circulatory system (principal); E11.42 Type 2 diabetes mellitus with diabetic polyneuropathy; R94.39 Abnormal result of other cardiovascular function study; Z95.5 Presence of coronary angioplasty implant and graft

== ENCOUNTER 2017-10-19 06:50 | Emergency (ER) | payer OTHER ==
[~2017-10-19] VITALS: Ht 170.1 cm; Wt 86.2 kg
[2017-10-19 06:52] VITALS: BP 133/72
[2017-10-19 07:31] LABS: BASO # 0.1 10*3/uL (0.0-0.1); BASO % 0.6 % (0.0-1.0); EOS # 0.2 10*3/uL (0.0-0.4); EOS % 2.7 % (1.0-4.0); HEMOGLOBIN 11.2 g/dl (12.0-16.0); LYMPH # 2.4 10*3/uL (1.3-4.4); LYMPH % 27.1 % (27.0-41.0); MEAN CELL VOLUME 75.7 fl (81.0-99.0); MEAN CORPUSCULAR HGB 22.9 pg (27.0-31.0); MEAN CORPUSCULAR HGB CONC 30.3 g/dl (33.0-37.0); MEAN PLATELET VOLUME 9.4 fl (9.6-12.3); MONO # 0.4 10*3/uL (0.1-1.0); MONO % 4.6 % (3.0-9.0); NEUT # 5.8 10*3/uL (2.3-7.9); NEUT % 64.8 % (47.0-73.0); PLATELET COUNT AUTOMATED 301 10*3/uL (130-400); RED BLOOD COUNT 4.89 10*6/uL (4.10-5.10)
[2017-10-19 07:47] LABS: ALBUMIN 3.1 gm/dl (3.1-4.5); ALKALINE PHOSPHATASE 107 U/L (45-117); BUN 10 mg/dl (7-24); CHLORIDE 107 mmol/L (98-107); CREATININE 0.87 mg/dL (0.55-1.02); SGOT/AST 16 IU/L (3-35); SGPT/ALT 17 U/L (12-78); SODIUM 141 mmol/L (136-145); TOTAL PROTEIN 7.1 gm/dL (6.4-8.2)
[2017-10-19 07:48] LABS: TROPONIN I < 0.015 ng/ml (<0.045)
== END 2017-10-19 08:06 | disposition home or self-care (01) ==
LOC: ED 06:50
PROVIDERS: Student in an Organized Health Care Education/Training Program
DX: G44.211 Episodic tension-type headache, intractable (principal); R20.0 Anesthesia of skin; E11.22 Type 2 diabetes mellitus with diabetic chronic kidney disease; I12.9 Hypertensive chronic kidney disease with stage 1 through stage 4 chronic kidney disease, or unspecified chronic kidney disease; N18.3 Chronic kidney disease, stage 3 (moderate); K21.9 Gastro-esophageal reflux disease without esophagitis; M19.90 Unspecified osteoarthritis, unspecified site; E11.40 Type 2 diabetes mellitus with diabetic neuropathy, unspecified; F17.210 Nicotine dependence, cigarettes, uncomplicated; Z86.718 Personal history of other venous thrombosis and embolism; Z88.8 Allergy status to other drugs, medicaments and biological substances; Z79.4 Long term (current) use of insulin; Z91.040 Latex allergy status; Z79.82 Long term (current) use of aspirin; Z79.899 Other long term (current) drug therapy

== ENCOUNTER 2017-11-15 02:18 | Emergency (ER) | payer OTHER ==
[~2017-11-15] VITALS: Ht 165.1 cm; Wt 91.6 kg
[2017-11-15 02:19] VITALS: BP 136/83
[2017-11-15 02:44] LABS: BASO % 0.5 % (0.0-1.0); EOS # 0.3 10*3/uL (0.0-0.4); HEMATOCRIT 37.9 % (37.0-47.0); HEMOGLOBIN 11.6 g/dl (12.0-16.0); LYMPH # 3.1 10*3/uL (1.3-4.4); LYMPH % 35.6 % (27.0-41.0); MEAN CELL VOLUME 76.7 fl (81.0-99.0); MEAN CORPUSCULAR HGB 23.5 pg (27.0-31.0); MEAN CORPUSCULAR HGB CONC 30.6 g/dl (33.0-37.0); MEAN PLATELET VOLUME 9.5 fl (9.6-12.3); MONO # 0.3 10*3/uL (0.1-1.0); MONO % 3.8 % (3.0-9.0); NEUT # 4.9 10*3/uL (2.3-7.9); PLATELET COUNT AUTOMATED 334 10*3/uL (130-400); RED BLOOD COUNT 4.94 10*6/uL (4.10-5.10); WHITE BLOOD COUNT 8.7 10*3/uL (4.8-10.8)
[2017-11-15 02:54] LABS: ACT PARTIAL THROMBO TIME 21.9 SECONDS (20.8-31.5); INTERNATIONAL NORM RATIO 0.9 (2.0-3.5)
[2017-11-15 02:56] LABS: BILIRUBIN NEGATIVE (NEGATIVE); BLOOD NEGATIVE (NEGATIVE); CLARITY SL CLOUDY (CLEAR); COLOR YELLOW (YELLOW); GLUCOSE NEGATIVE (NEGATIVE); KETONE NEGATIVE (NEGATIVE); LEUKO ESTERASE 1+ (NEGATIVE); NITRITE NEGATIVE (NEGATIVE); PH 5.5 (5.0-9.0); SPECIFIC GRAVITY 1.015 (1.005-1.030); UROBILINOGEN 0.2 E.U./dl (0.2-1.0)
[2017-11-15 03:00] LABS: ALBUMIN 3.6 gm/dl (3.1-4.5); ALKALINE PHOSPHATASE 127 U/L (45-117); BUN 10 mg/dl (7-24); CHLORIDE 107 mmol/L (98-107); CREATININE 0.88 mg/dL (0.55-1.02); POTASSIUM 3.8 mmol/L (3.5-5.1); SGOT/AST 14 IU/L (3-35); SGPT/ALT 19 U/L (12-78); SODIUM 143 mmol/L (136-145); TOTAL PROTEIN 7.4 gm/dL (6.4-8.2)
[2017-11-15 03:01] LABS: TROPONIN I < 0.015 ng/ml (<0.045)
[2017-11-15 03:02] LABS: BACTERIA 1+; EPITHELIAL CELLS 40-45; WBC 16-20 wbc/hpf (0-5)
[2017-11-15] MEDS ORDERED: SEPTDS PO (03:08)
== END 2017-11-15 03:20 | disposition home or self-care (01) ==
LOC: ED 02:18
PROVIDERS: Student in an Organized Health Care Education/Training Program
DX: N39.0 Urinary tract infection, site not specified (principal); I12.9 Hypertensive chronic kidney disease with stage 1 through stage 4 chronic kidney disease, or unspecified chronic kidney disease; E11.22 Type 2 diabetes mellitus with diabetic chronic kidney disease; N18.3 Chronic kidney disease, stage 3 (moderate); I25.10 Atherosclerotic heart disease of native coronary artery without angina pectoris; K21.9 Gastro-esophageal reflux disease without esophagitis; E11.40 Type 2 diabetes mellitus with diabetic neuropathy, unspecified; F17.210 Nicotine dependence, cigarettes, uncomplicated; Z79.4 Long term (current) use of insulin; Z86.73 Personal history of transient ischemic attack (TIA), and cerebral infarction without residual deficits; Z91.041 Radiographic dye allergy status; Z88.8 Allergy status to other drugs, medicaments and biological substances; Z79.82 Long term (current) use of aspirin; Z79.899 Other long term (current) drug therapy

== ENCOUNTER 2017-11-15 17:59 | Emergency (ER) | payer OTHER ==
[~2017-11-15] VITALS: Wt 94.3 kg
[2017-11-15 17:59] VITALS: BP 123/77
[~2017-11-15 17:59] MED LIST changes: +SEPTDS PO
[2017-11-15 18:24] LABS: BASO % 0.5 % (0.0-1.0); EOS # 0.2 10*3/uL (0.0-0.4); EOS % 2.1 % (1.0-4.0); HEMATOCRIT 33.2 % (37.0-47.0); LYMPH # 2.9 10*3/uL (1.3-4.4); LYMPH % 32.8 % (27.0-41.0); MEAN CORPUSCULAR HGB 23.2 pg (27.0-31.0); MEAN CORPUSCULAR HGB CONC 30.1 g/dl (33.0-37.0); MEAN PLATELET VOLUME 9.4 fl (9.6-12.3); MONO # 0.4 10*3/uL (0.1-1.0); MONO % 4.3 % (3.0-9.0); NEUT # 5.3 10*3/uL (2.3-7.9); NEUT % 60.1 % (47.0-73.0); PLATELET COUNT AUTOMATED 310 10*3/uL (130-400); RED BLOOD COUNT 4.31 10*6/uL (4.10-5.10); RED CELL DISTRI WIDTH 16.9 % (0-14.5); WHITE BLOOD COUNT 8.8 10*3/uL (4.8-10.8)
[2017-11-15 18:27] VITALS: BP 112/74
[2017-11-15 18:35] LABS: ACT PARTIAL THROMBO TIME 21.5 SECONDS (20.8-31.5); INTERNATIONAL NORM RATIO 0.9 (2.0-3.5)
[2017-11-15 18:47] LABS: ALBUMIN 3.4 gm/dl (3.1-4.5); ALKALINE PHOSPHATASE 114 U/L (45-117); BUN 13 mg/dl (7-24); CHLORIDE 103 mmol/L (98-107); POTASSIUM 4.2 mmol/L (3.5-5.1); SGOT/AST 9 IU/L (3-35); SGPT/ALT 19 U/L (12-78); SODIUM 137 mmol/L (136-145); TOTAL PROTEIN 7.1 gm/dL (6.4-8.2)
[2017-11-15 18:52] LABS: TROPONIN I < 0.015 ng/ml (<0.045)
[2017-11-15 19:30] VITALS: BP 146/75
[2017-11-15 20:30] VITALS: BP 146/62
[2017-11-15 21:58] VITALS: BP 142/64
== END 2017-11-15 22:05 | disposition home or self-care (01) ==
LOC: ED 17:59 → EDHOLD 20:48 → 5E 21:46 → ED 22:05
PROVIDERS: Emergency Medicine
DX: R07.89 Other chest pain (principal); R00.2 Palpitations; I25.10 Atherosclerotic heart disease of native coronary artery without angina pectoris; F41.9 Anxiety disorder, unspecified; F17.210 Nicotine dependence, cigarettes, uncomplicated; Z98.890 Other specified postprocedural states; Z98.51 Tubal ligation status; Z90.710 Acquired absence of both cervix and uterus; Z79.899 Other long term (current) drug therapy; Z79.4 Long term (current) use of insulin; Z79.82 Long term (current) use of aspirin; Z91.041 Radiographic dye allergy status; Z88.8 Allergy status to other drugs, medicaments and biological substances; Z88.6 Allergy status to analgesic agent

== ENCOUNTER 2017-12-28 12:52 | Emergency (ER) | payer OTHER ==
[~2017-12-28] VITALS: Ht 165.1 cm; Wt 91.6 kg
[2017-12-28 13:16] LABS: BASO # 0.1 10*3/uL (0.0-0.1); BASO % 0.6 % (0.0-1.0); EOS # 0.2 10*3/uL (0.0-0.4); HEMATOCRIT 33.9 % (37.0-47.0); HEMOGLOBIN 10.6 g/dl (12.0-16.0); LYMPH # 2.8 10*3/uL (1.3-4.4); LYMPH % 32.4 % (27.0-41.0); MEAN CELL VOLUME 75.8 fl (81.0-99.0); MEAN CORPUSCULAR HGB 23.7 pg (27.0-31.0); MEAN CORPUSCULAR HGB CONC 31.3 g/dl (33.0-37.0); MEAN PLATELET VOLUME 9.4 fl (9.6-12.3); MONO # 0.4 10*3/uL (0.1-1.0); MONO % 4.6 % (3.0-9.0); NEUT # 5.1 10*3/uL (2.3-7.9); NEUT % 60.2 % (47.0-73.0); PLATELET COUNT AUTOMATED 310 10*3/uL (130-400); RED BLOOD COUNT 4.47 10*6/uL (4.10-5.10); WHITE BLOOD COUNT 8.5 10*3/uL (4.8-10.8)
[2017-12-28 13:24] LABS: ACT PARTIAL THROMBO TIME 20.6 SECONDS (20.8-31.5); INTERNATIONAL NORM RATIO 0.9 (2.0-3.5)
[2017-12-28 13:36] LABS: ALBUMIN 3.5 gm/dl (3.1-4.5); ALKALINE PHOSPHATASE 97 U/L (45-117); BUN 13 mg/dl (7-24); CHLORIDE 105 mmol/L (98-107); CREATININE 0.89 mg/dL (0.55-1.02); POTASSIUM 3.8 mmol/L (3.5-5.1); SGOT/AST 13 IU/L (3-35); SGPT/ALT 17 U/L (12-78); SODIUM 140 mmol/L (136-145); TOTAL PROTEIN 7.2 gm/dL (6.4-8.2)
[2017-12-28 13:37] LABS: TROPONIN I < 0.015 ng/ml (<0.045)
[2017-12-28 14:59] VITALS: BP 112/52
== END 2017-12-28 16:12 | disposition home or self-care (01) ==
LOC: ED 12:52
PROVIDERS: Emergency Medicine
DX: R07.9 Chest pain, unspecified (principal); I25.10 Atherosclerotic heart disease of native coronary artery without angina pectoris; I12.9 Hypertensive chronic kidney disease with stage 1 through stage 4 chronic kidney disease, or unspecified chronic kidney disease; E11.22 Type 2 diabetes mellitus with diabetic chronic kidney disease; N18.3 Chronic kidney disease, stage 3 (moderate); K21.9 Gastro-esophageal reflux disease without esophagitis; M19.90 Unspecified osteoarthritis, unspecified site; E11.40 Type 2 diabetes mellitus with diabetic neuropathy, unspecified; E66.9 Obesity, unspecified; F17.210 Nicotine dependence, cigarettes, uncomplicated; Z86.73 Personal history of transient ischemic attack (TIA), and cerebral infarction without residual deficits; Z79.4 Long term (current) use of insulin

== ENCOUNTER 2018-02-08 10:24 | Inpatient (IN) | payer OTHER ==
[~2018-02-08] VITALS: Ht 165.1 cm; Wt 86.0 kg
[2018-02-08 10:25] VITALS: BP 178/102
[2018-02-08 11:05] LABS: BASO % 0.4 % (0.0-1.0); EOS # 0.2 10*3/uL (0.0-0.4); EOS % 2.6 % (1.0-4.0); HEMATOCRIT 39.7 % (37.0-47.0); HEMOGLOBIN 12.2 g/dl (12.0-16.0); LYMPH # 1.9 10*3/uL (1.3-4.4); LYMPH % 22.1 % (27.0-41.0); MEAN CELL VOLUME 78.6 fl (81.0-99.0); MEAN CORPUSCULAR HGB 24.2 pg (27.0-31.0); MEAN CORPUSCULAR HGB CONC 30.7 g/dl (33.0-37.0); MEAN PLATELET VOLUME 9.2 fl (9.6-12.3); MONO # 0.4 10*3/uL (0.1-1.0); MONO % 4.8 % (3.0-9.0); NEUT # 5.9 10*3/uL (2.3-7.9); NEUT % 69.9 % (47.0-73.0); PLATELET COUNT AUTOMATED 329 10*3/uL (130-400); RED BLOOD COUNT 5.05 10*6/uL (4.10-5.10); RED CELL DISTRI WIDTH 15.9 % (0-14.5); WHITE BLOOD COUNT 8.4 10*3/uL (4.8-10.8)
[2018-02-08 11:19] LABS: ALKALINE PHOSPHATASE 131 U/L (45-117); BUN 13 mg/dl (7-24); CHLORIDE 105 mmol/L (98-107); LIPASE 115 U/L (73-393); POTASSIUM 3.9 mmol/L (3.5-5.1); SGOT/AST 8 IU/L (3-35); SGPT/ALT 19 U/L (12-78); SODIUM 139 mmol/L (136-145); TOTAL PROTEIN 8.4 gm/dL (6.4-8.2)
[2018-02-08 11:30] LABS: BILIRUBIN 1+ (NEGATIVE); BLOOD NEGATIVE (NEGATIVE); CLARITY SL CLOUDY (CLEAR); COLOR YELLOW (YELLOW); GLUCOSE NEGATIVE (NEGATIVE); KETONE TRACE (NEGATIVE); LEUKO ESTERASE NEGATIVE (NEGATIVE); NITRITE NEGATIVE (NEGATIVE); PH 5.5 (5.0-9.0); SPECIFIC GRAVITY >= 1.030 (1.005-1.030); UROBILINOGEN 0.2 E.U./dl (0.2-1.0)
[2018-02-08 11:42] LABS: BACTERIA 2+; CALCIUM OXALATE CRYSTALS 2+; EPITHELIAL CELLS 25-30; WBC 0-2 wbc/hpf (0-5)
[2018-02-08 12:08] VITALS: BP 148/73
[2018-02-08 13:30] VITALS: BP 142/68
[2018-02-08] MEDS ORDERED: AMBIEN5 MG PO (14:10)
[2018-02-08] MEDS ORDERED: FLONASE ALLERG9.9 ML NAS (14:15)
[2018-02-08] MEDS ORDERED: REXULTI1 MG PO (14:16)
[2018-02-08 16:00] VITALS: BP 132/74
[2018-02-08 20:00] VITALS: BP 115/63
[2018-02-09] VITALS: BP 99/60
[2018-02-09 06:28] LABS: BASO % 0.3 % (0.0-1.0); EOS # 0.2 10*3/uL (0.0-0.4); EOS % 2.3 % (1.0-4.0); LYMPH # 2.5 10*3/uL (1.3-4.4); LYMPH % 36.5 % (27.0-41.0); MEAN CELL VOLUME 79.9 fl (81.0-99.0); MEAN CORPUSCULAR HGB 24.2 pg (27.0-31.0); MEAN CORPUSCULAR HGB CONC 30.2 g/dl (33.0-37.0); MEAN PLATELET VOLUME 9.4 fl (9.6-12.3); MONO # 0.4 10*3/uL (0.1-1.0); MONO % 6.1 % (3.0-9.0); NEUT # 3.8 10*3/uL (2.3-7.9); NEUT % 54.7 % (47.0-73.0); PLATELET COUNT AUTOMATED 273 10*3/uL (130-400); RED BLOOD COUNT 3.89 10*6/uL (4.10-5.10); RED CELL DISTRI WIDTH 15.8 % (0-14.5); WHITE BLOOD COUNT 6.9 10*3/uL (4.8-10.8)
[2018-02-09 06:30] LABS: HEMATOCRIT 31.1 % (37.0-47.0); HEMOGLOBIN 9.4 g/dl (12.0-16.0)
[2018-02-09 06:49] LABS: ALKALINE PHOSPHATASE 85 U/L (45-117); BUN 10 mg/dl (7-24); CHLORIDE 109 mmol/L (98-107); CREATININE 0.84 mg/dL (0.55-1.02); PHOSPHOROUS 3.3 mg/dL (2.5-4.9); POTASSIUM 3.7 mmol/L (3.5-5.1); SGOT/AST 8 IU/L (3-35); SGPT/ALT 14 U/L (12-78); SODIUM 142 mmol/L (136-145); TOTAL PROTEIN 6.4 gm/dL (6.4-8.2)
[2018-02-09 08:00] VITALS: BP 118/68
[2018-02-09 12:00] VITALS: BP 102/54
[2018-02-09 16:00] VITALS: BP 107/65
[2018-02-09 19:38] VITALS: BP 110/70
[2018-02-10] VITALS: BP 114/60
[2018-02-10 06:08] LABS: BASO % 0.5 % (0.0-1.0); EOS # 0.2 10*3/uL (0.0-0.4); EOS % 3.2 % (1.0-4.0); HEMOGLOBIN 9.9 g/dl (12.0-16.0); LYMPH # 2.2 10*3/uL (1.3-4.4); LYMPH % 33.4 % (27.0-41.0); MEAN CELL VOLUME 78.9 fl (81.0-99.0); MEAN CORPUSCULAR HGB 23.7 pg (27.0-31.0); MEAN PLATELET VOLUME 9.5 fl (9.6-12.3); MONO # 0.4 10*3/uL (0.1-1.0); NEUT # 3.7 10*3/uL (2.3-7.9); NEUT % 56.6 % (47.0-73.0); PLATELET COUNT AUTOMATED 272 10*3/uL (130-400); RED BLOOD COUNT 4.18 10*6/uL (4.10-5.10); RED CELL DISTRI WIDTH 15.7 % (0-14.5); WHITE BLOOD COUNT 6.5 10*3/uL (4.8-10.8)
[2018-02-10 06:29] LABS: BUN 10 mg/dl (7-24); CHLORIDE 110 mmol/L (98-107); CREATININE 0.82 mg/dL (0.55-1.02); IRON 30 ug/dL (50-170); POTASSIUM 3.8 mmol/L (3.5-5.1); SODIUM 144 mmol/L (136-145); TOTAL IRON BINDING CAPACITY 408 ug/dl (250-450)
[2018-02-10 08:00] VITALS: BP 116/62; BP 124/72
== END 2018-02-10 11:19 | disposition home or self-care (01) | DRG 872 ==
LOC: ED 10:24 → EDHOLD 13:12 → 4E 13:12
PROVIDERS: Family Medicine; Registered Nurse; Student in an Organized Health Care Education/Training Program
DX: A41.9 Sepsis, unspecified organism (principal); E11.22 Type 2 diabetes mellitus with diabetic chronic kidney disease; E11.43 Type 2 diabetes mellitus with diabetic autonomic (poly)neuropathy; E86.0 Dehydration; K52.9 Noninfective gastroenteritis and colitis, unspecified; N18.3 Chronic kidney disease, stage 3 (moderate); K21.9 Gastro-esophageal reflux disease without esophagitis; I25.10 Atherosclerotic heart disease of native coronary artery without angina pectoris; E66.9 Obesity, unspecified; M19.90 Unspecified osteoarthritis, unspecified site; H40.9 Unspecified glaucoma; F41.9 Anxiety disorder, unspecified; D72.810 Lymphocytopenia; E55.9 Vitamin D deficiency, unspecified; I12.9 Hypertensive chronic kidney disease with stage 1 through stage 4 chronic kidney disease, or unspecified chronic kidney disease; R71.8 Other abnormality of red blood cells; R74.8 Abnormal levels of other serum enzymes; F17.210 Nicotine dependence, cigarettes, uncomplicated; K57.90 Diverticulosis of intestine, part unspecified, without perforation or abscess without bleeding; F43.10 Post-traumatic stress disorder, unspecified; Z71.6 Tobacco abuse counseling; Z91.041 Radiographic dye allergy status; Z88.8 Allergy status to other drugs, medicaments and biological substances; Z91.048 Other nonmedicinal substance allergy status; I25.2 Old myocardial infarction; Z86.73 Personal history of transient ischemic attack (TIA), and cerebral infarction without residual deficits; Z87.440 Personal history of urinary (tract) infections; Z90.710 Acquired absence of both cervix and uterus; Z90.49 Acquired absence of other specified parts of digestive tract; Z95.5 Presence of coronary angioplasty implant and graft; Z98.51 Tubal ligation status; Z83.3 Family history of diabetes mellitus; Z82.49 Family history of ischemic heart disease and other diseases of the circulatory system; Z80.0 Family history of malignant neoplasm of digestive organs; Z84.89 Family history of other specified conditions; Z79.82 Long term (current) use of aspirin; Z79.899 Other long term (current) drug therapy; Z79.02 Long term (current) use of antithrombotics/antiplatelets; Z68.31 Body mass index [BMI] 31.0-31.9, adult

== ENCOUNTER → 2018-04-10 | Outpatient (CLI) | payer OTHER ==
[~2018-04-10] MED LIST changes: +AMINOPHYLLIN200 MG PO; +CEFDINIR300 MG PO; +FLONASE ALLERG9.9 ML NAS; +REXULTI1 MG PO
[2018-04-10 11:20] LABS: IRON 30 ug/dL (50-170); TOTAL IRON BINDING CAPACITY 451 ug/dl (250-450)
[2018-04-10 12:39] LABS: FERRITIN 7.3 ng/mL (10.0-291.0)
== END | disposition home or self-care (01) ==
LOC: LAB 10:20
PROVIDERS: Nurse Practitioner Family
DX: E87.1 Hypo-osmolality and hyponatremia (principal); D64.9 Anemia, unspecified

== ENCOUNTER 2018-04-17 23:44 | Emergency (ER) | payer OTHER ==
[~2018-04-17] VITALS: Ht 167.6 cm; Wt 81.6 kg
--- NOTE | ~2018-04-17 | EKG ---
[place], [place] ELECTROCARDIOGRAM REPORT NAME: KT BUSTILLOS UNIT #: [id number] ROOM: DOCTOR: EPIPHANY DRAFT REPORT BIRTHDATE: [birth year] [facility] Test Date: 2018-04-18 Test Time: 00:02:52 Pat Name: KT BUSTILLOS Department: ER Room: 1 Gender: F Business Account Leader: Glenda Aleman : 1965 Requested By: GUERO CHASE Order Number: [id number] Reading MD: Andrea Solano MD Measurements Intervals [place] Rate: 78 P: 60 WI: 154 QRS: 26 QRSD: 92 T: 61 QT: 407 QTc: 464 Interpretive Statements Sinus rhythm Borderline low voltage, extremity leads Electronically Signed On 04-19-2018 11:03:37 PDT by Andrea Solano MD CM:EKGRPT:ELECTROCARDIOGRAM REPORT [id number] GUERO CHASE MD EPIPHANY DRAFT REPORT GUERO CHASE MD
[~2018-04-17 23:44] MED LIST changes: -AMINOPHYLLIN200 MG PO; -CEFDINIR300 MG PO
[2018-04-17 23:50] VITALS: BP 152/80
[2018-04-18 00:02] LABS: BASO # 0.1 10*3/uL (0.0-0.1); BASO % 0.6 % (0.0-1.0); EOS # 0.2 10*3/uL (0.0-0.4); EOS % 2.4 % (1.0-4.0); HEMATOCRIT 33.7 % (37.0-47.0); HEMOGLOBIN 10.5 g/dl (12.0-16.0); LYMPH # 3.1 10*3/uL (1.3-4.4); LYMPH % 34.9 % (27.0-41.0); MEAN CELL VOLUME 79.1 fl (81.0-99.0); MEAN CORPUSCULAR HGB 24.6 pg (27.0-31.0); MEAN CORPUSCULAR HGB CONC 31.2 g/dl (33.0-37.0); MEAN PLATELET VOLUME 9.8 fl (9.6-12.3); MONO # 0.5 10*3/uL (0.1-1.0); MONO % 5.2 % (3.0-9.0); NEUT % 56.7 % (47.0-73.0); PLATELET COUNT AUTOMATED 321 10*3/uL (130-400); RED BLOOD COUNT 4.26 10*6/uL (4.10-5.10); RED CELL DISTRI WIDTH 15.9 % (0-14.5); WHITE BLOOD COUNT 8.9 10*3/uL (4.8-10.8)
[2018-04-18 00:12] LABS: ACT PARTIAL THROMBO TIME 22.7 SECONDS (20.8-31.5); INTERNATIONAL NORM RATIO 0.9 (2.0-3.5)
[2018-04-18 00:17] LABS: BILIRUBIN NEGATIVE (NEGATIVE); BLOOD NEGATIVE (NEGATIVE); CLARITY CLEAR (CLEAR); COLOR YELLOW (YELLOW); GLUCOSE TRACE (NEGATIVE); KETONE NEGATIVE (NEGATIVE); LEUKO ESTERASE 3+ (NEGATIVE); NITRITE NEGATIVE (NEGATIVE); SPECIFIC GRAVITY <= 1.005 (1.005-1.030); UROBILINOGEN 0.2 E.U./dl (0.2-1.0)
[2018-04-18 00:19] LABS: ALBUMIN 3.3 gm/dl (3.1-4.5); ALKALINE PHOSPHATASE 99 U/L (45-117); BUN 10 mg/dl (7-24); CHLORIDE 105 mmol/L (98-107); CKMB 1.9 ng/ml (0.5-3.6); CPK 155 U/L (26-192); CREATININE 1.36 mg/dL (0.55-1.02); LIPASE 135 U/L (73-393); POTASSIUM 3.5 mmol/L (3.5-5.1); SGOT/AST 10 IU/L (3-35); SGPT/ALT 16 U/L (12-78); SODIUM 138 mmol/L (136-145); TOTAL PROTEIN 7.2 gm/dL (6.4-8.2)
[2018-04-18 00:21] LABS: ACETAMINOPHEN (TYLENOL) < 2.0 ug/ml (10-30); ETHYL ALCOHOL < 3.0 mg/dl (<3); TROPONIN I < 0.015 ng/ml (<0.045)
[2018-04-18 00:26] LABS: BACTERIA 1+; EPITHELIAL CELLS 0-2; WBC 16-20 wbc/hpf (0-5)
[2018-04-18 00:31] LABS: URINE AMPHETAMINES < 1000 (1000ng/ml); URINE BARBITURATES < 200 (200ng/ml); URINE BENZODIAZEPINES < 200 (200ng/ml); URINE CANNABINOIDS (THC) < 50 (50ng/ml); URINE COCAINE < 300 (300ng/ml)
[2018-04-18 00:58] LABS: URINE METHADONE < 300 (300ng/ml); URINE OPIATES < 300 (300ng/ml); URINE PHENCYCLIDINE < 25 (25ng/ml)
[2018-04-18] MEDS ORDERED: CEFDINIR300 MG PO (01:01)
== END 2018-04-18 01:44 | disposition home or self-care (01) ==
LOC: ED 23:44
PROVIDERS: Emergency Medicine
DX: E11.649 Type 2 diabetes mellitus with hypoglycemia without coma (principal); R55 Syncope and collapse; N39.0 Urinary tract infection, site not specified; I25.10 Atherosclerotic heart disease of native coronary artery without angina pectoris; I12.9 Hypertensive chronic kidney disease with stage 1 through stage 4 chronic kidney disease, or unspecified chronic kidney disease; E11.22 Type 2 diabetes mellitus with diabetic chronic kidney disease; N18.3 Chronic kidney disease, stage 3 (moderate); K21.9 Gastro-esophageal reflux disease without esophagitis; E66.9 Obesity, unspecified; E11.40 Type 2 diabetes mellitus with diabetic neuropathy, unspecified; F17.210 Nicotine dependence, cigarettes, uncomplicated; Z86.718 Personal history of other venous thrombosis and embolism; Z91.041 Radiographic dye allergy status; Z88.8 Allergy status to other drugs, medicaments and biological substances; Z79.82 Long term (current) use of aspirin; Z79.899 Other long term (current) drug therapy; Z79.4 Long term (current) use of insulin

== ENCOUNTER 2018-05-18 19:13 | Emergency (ER) | payer OTHER ==
[~2018-05-18] VITALS: Ht 165.1 cm; Wt 90.7 kg
[~2018-05-18 19:13] MED LIST changes: +CEFDINIR300 MG PO
[2018-05-18 19:46] LABS: BASO # 0.1 10*3/uL (0.0-0.1); BASO % 0.8 % (0.0-1.0); EOS # 0.2 10*3/uL (0.0-0.4); EOS % 1.9 % (1.0-4.0); HEMATOCRIT 38.5 % (37.0-47.0); HEMOGLOBIN 12.4 g/dl (12.0-16.0); LYMPH # 1.8 10*3/uL (1.3-4.4); LYMPH % 19.7 % (27.0-41.0); MEAN CELL VOLUME 78.4 fl (81.0-99.0); MEAN CORPUSCULAR HGB 25.3 pg (27.0-31.0); MEAN CORPUSCULAR HGB CONC 32.2 g/dl (33.0-37.0); MEAN PLATELET VOLUME 9.4 fl (9.6-12.3); MONO # 0.5 10*3/uL (0.1-1.0); MONO % 5.9 % (3.0-9.0); NEUT # 6.4 10*3/uL (2.3-7.9); NEUT % 71.4 % (47.0-73.0); PLATELET COUNT AUTOMATED 318 10*3/uL (130-400); RED BLOOD COUNT 4.91 10*6/uL (4.10-5.10); RED CELL DISTRI WIDTH 16.5 % (0-14.5)
[2018-05-18 20:01] LABS: ALBUMIN 3.7 gm/dl (3.1-4.5); ALKALINE PHOSPHATASE 121 U/L (45-117); BUN 10 mg/dl (7-24); CHLORIDE 100 mmol/L (98-107); CREATININE 0.98 mg/dL (0.55-1.02); LIPASE 125 U/L (73-393); POTASSIUM 4.1 mmol/L (3.5-5.1); SGOT/AST 16 IU/L (3-35); SGPT/ALT 23 U/L (12-78); SODIUM 134 mmol/L (136-145); TOTAL PROTEIN 8.4 gm/dL (6.4-8.2)
[2018-05-18 21:20] VITALS: BP 141/76
[2018-05-18 22:34] LABS: BILIRUBIN NEGATIVE (NEGATIVE); BLOOD TRACE-LYSED (NEGATIVE); CLARITY CLEAR (CLEAR); COLOR YELLOW (YELLOW); GLUCOSE 2+ (NEGATIVE); KETONE NEGATIVE (NEGATIVE); LEUKO ESTERASE 2+ (NEGATIVE); NITRITE NEGATIVE (NEGATIVE); UROBILINOGEN 0.2 E.U./dl (0.2-1.0)
[2018-05-18 22:39] LABS: WBC 21-30 wbc/hpf (0-5)
[2018-05-18] MEDS ORDERED: AMINOPHYLLIN200 MG PO (23:19)
== END 2018-05-18 23:06 | disposition home or self-care (01) ==
LOC: ED 19:13
PROVIDERS: Physician Assistant
DX: N39.0 Urinary tract infection, site not specified (principal); M54.16 Radiculopathy, lumbar region; B34.9 Viral infection, unspecified; F17.210 Nicotine dependence, cigarettes, uncomplicated; Z91.041 Radiographic dye allergy status; Z88.8 Allergy status to other drugs, medicaments and biological substances; Z88.6 Allergy status to analgesic agent; Z79.2 Long term (current) use of antibiotics; Z79.82 Long term (current) use of aspirin; Z90.710 Acquired absence of both cervix and uterus; Z90.49 Acquired absence of other specified parts of digestive tract

== ENCOUNTER 2018-08-12 16:48 | Emergency (ER) | payer OTHER ==
[~2018-08-12] VITALS: Ht 165.1 cm; Wt 91.6 kg
[~2018-08-12 16:48] MED LIST changes: +AMINOPHYLLIN200 MG PO
[2018-08-12 16:49] VITALS: BP 128/84
[2018-08-12 17:41] LABS: BASO % 0.5 % (0.0-1.0); EOS % 0.5 % (1.0-4.0); HEMOGLOBIN 14.1 g/dl (12.0-16.0); LYMPH % 24.3 % (27.0-41.0); MEAN CELL VOLUME 84.3 fl (81.0-99.0); MEAN CORPUSCULAR HGB 28.3 pg (27.0-31.0); MEAN CORPUSCULAR HGB CONC 33.6 g/dl (33.0-37.0); MEAN PLATELET VOLUME 9.1 fl (9.6-12.3); MONO # 0.3 10*3/uL (0.1-1.0); MONO % 7.4 % (3.0-9.0); NEUT # 2.7 10*3/uL (2.3-7.9); NEUT % 66.8 % (47.0-73.0); PLATELET COUNT AUTOMATED 209 10*3/uL (130-400); RED BLOOD COUNT 4.98 10*6/uL (4.10-5.10); RED CELL DISTRI WIDTH 15.8 % (0-14.5); WHITE BLOOD COUNT 4.1 10*3/uL (4.8-10.8)
[2018-08-12 17:59] LABS: ALBUMIN 3.2 gm/dl (3.1-4.5); CREATININE 1.17 mg/dL (0.55-1.02); POTASSIUM 4.6 mmol/L (3.5-5.1); TOTAL PROTEIN 7.3 gm/dL (6.4-8.2)
[2018-08-12] MEDS ORDERED: AVPAK AZITHROM250 MG PO (18:31)
[2018-08-12] MEDS ORDERED: ZYRTEC10 MG PO (18:38)
[2018-08-12] MEDS ORDERED: ZOFRAN4 MG PO (18:49)
== END 2018-08-12 18:45 | disposition home or self-care (01) ==
LOC: ED 16:48
PROVIDERS: Emergency Medicine
DX: J01.90 Acute sinusitis, unspecified (principal); H65.01 Acute serous otitis media, right ear; G89.29 Other chronic pain; R10.30 Lower abdominal pain, unspecified; R11.2 Nausea with vomiting, unspecified; E11.22 Type 2 diabetes mellitus with diabetic chronic kidney disease; I12.9 Hypertensive chronic kidney disease with stage 1 through stage 4 chronic kidney disease, or unspecified chronic kidney disease; N18.3 Chronic kidney disease, stage 3 (moderate); I25.10 Atherosclerotic heart disease of native coronary artery without angina pectoris; E66.9 Obesity, unspecified; E11.40 Type 2 diabetes mellitus with diabetic neuropathy, unspecified; K21.9 Gastro-esophageal reflux disease without esophagitis; I25.2 Old myocardial infarction; F17.210 Nicotine dependence, cigarettes, uncomplicated; Z90.710 Acquired absence of both cervix and uterus; Z91.041 Radiographic dye allergy status; Z88.8 Allergy status to other drugs, medicaments and biological substances; Z88.6 Allergy status to analgesic agent; Z79.2 Long term (current) use of antibiotics; Z79.82 Long term (current) use of aspirin; Z79.899 Other long term (current) drug therapy; Z79.4 Long term (current) use of insulin; Z79.84 Long term (current) use of oral hypoglycemic drugs

== ENCOUNTER 2018-09-19 20:09 | Emergency (ER) | payer OTHER ==
[~2018-09-19] VITALS: Ht 165.1 cm; Wt 89.8 kg
[~2018-09-19 20:09] MED LIST changes: +AVPAK AZITHROM250 MG PO; -BASAGLAR SC; +INSULIN GLARGINE SC; +ZYRTEC10 MG PO
[2018-09-19 20:11] VITALS: BP 159/82
[2018-09-19 20:49] LABS: BASO % 0.5 % (0.0-1.0); EOS # 0.3 10*3/uL (0.0-0.4); EOS % 3.5 % (1.0-4.0); HEMATOCRIT 39.9 % (37.0-47.0); HEMOGLOBIN 13.7 g/dl (12.0-16.0); LYMPH # 3.4 10*3/uL (1.3-4.4); LYMPH % 38.1 % (27.0-41.0); MEAN CELL VOLUME 86.6 fl (81.0-99.0); MEAN CORPUSCULAR HGB 29.7 pg (27.0-31.0); MEAN CORPUSCULAR HGB CONC 34.3 g/dl (33.0-37.0); MEAN PLATELET VOLUME 9.3 fl (9.6-12.3); MONO # 0.4 10*3/uL (0.1-1.0); NEUT # 4.7 10*3/uL (2.3-7.9); NEUT % 52.7 % (47.0-73.0); PLATELET COUNT AUTOMATED 279 10*3/uL (130-400); RED BLOOD COUNT 4.61 10*6/uL (4.10-5.10); WHITE BLOOD COUNT 8.9 10*3/uL (4.8-10.8)
[2018-09-19 20:57] LABS: INTERNATIONAL NORM RATIO 0.9 (2.0-3.5)
[2018-09-19 21:09] LABS: ALBUMIN 3.3 gm/dl (3.1-4.5); ALKALINE PHOSPHATASE 109 U/L (45-117); BUN 10 mg/dl (7-24); CHLORIDE 104 mmol/L (98-107); CREATININE 1.11 mg/dL (0.55-1.02); POTASSIUM 4.1 mmol/L (3.5-5.1); SGOT/AST 11 IU/L (3-35); SGPT/ALT 25 U/L (12-78); SODIUM 139 mmol/L (136-145); TOTAL PROTEIN 7.5 gm/dL (6.4-8.2); URIC ACID 2.4 mg/dL (2.6-6.0)
[2018-11-01] MEDS ORDERED: MELATONIN5 M1 SL (11:55)
[2018-11-01] MEDS ORDERED: BUSPAR15 MG PO (12:06)
[2018-11-01] MEDS ORDERED: VISTARIL25 MG PO (12:07)
[2018-11-02] MEDS ORDERED: FEROSUL325 MG PO (01:12)
[2018-11-02] MEDS ORDERED: METFORMIN HYDR500 MG PO (05:22)
[2018-11-02] MEDS ORDERED: IMDUR SA60 M1 PO (10:27)
[2018-11-19] MEDS ORDERED: BASAG SOL SQ (02:36)
[2018-11-20] MEDS ORDERED: RANEXA500 M1 PO (13:46)
== END 2018-09-19 21:21 | disposition home or self-care (01) ==
LOC: ED 20:09
PROVIDERS: Nurse Practitioner Family
DX: M79.641 Pain in right hand (principal); M79.89 Other specified soft tissue disorders; R20.0 Anesthesia of skin; R20.2 Paresthesia of skin; I10 Essential (primary) hypertension; I25.2 Old myocardial infarction; F17.210 Nicotine dependence, cigarettes, uncomplicated; Z86.73 Personal history of transient ischemic attack (TIA), and cerebral infarction without residual deficits; Z86.718 Personal history of other venous thrombosis and embolism; Z91.041 Radiographic dye allergy status; Z88.8 Allergy status to other drugs, medicaments and biological substances; Z88.6 Allergy status to analgesic agent; Z79.2 Long term (current) use of antibiotics; Z79.82 Long term (current) use of aspirin; Z79.899 Other long term (current) drug therapy; Z79.84 Long term (current) use of oral hypoglycemic drugs; Z90.710 Acquired absence of both cervix and uterus; Z90.49 Acquired absence of other specified parts of digestive tract

== ENCOUNTER 2018-09-29 03:39 | Emergency (ER) | payer OTHER ==
[~2018-09-29] VITALS: Ht 165.1 cm; Wt 86.2 kg
--- NOTE | ~2018-09-29 | EKG ---
[place], [place] ELECTROCARDIOGRAM REPORT NAME: KT BUSTILLOS UNIT #: [id number] ROOM: DOCTOR: EPIPHANY DRAFT REPORT BIRTHDATE: [birth year] [facility] Test Date: 2018-09-29 Test Time: 07:03:05 Pat Name: KT BUSTILLOS Department: Room: Gender: F Brand Executive: Sonia Jolley : 1965 Requested By: VALERIE DUONG Order Number: [id number] Reading MD: Andrea Solano MD Measurements Intervals [place] Rate: 81 P: 62 LA: 145 QRS: 18 QRSD: 91 T: 71 QT: 375 QTc: 436 Interpretive Statements Sinus rhythm Low voltage, extremity and precordial leads Baseline wander in lead(s) V4,V5,V6 Compared to ECG 04/18/2018 00:02:52 No significant changes Electronically Signed On 09-29-2018 8:48:36 PST by Andrea Solano MD CM:EKGRPT:ELECTROCARDIOGRAM REPORT 2 0848 VALERIE DUONG MD EPIPHANY DRAFT REPORT VALERIE DUONG MD
[2018-09-29 04:13] LABS: BILIRUBIN NEGATIVE (NEGATIVE); BLOOD TRACE-LYSED (NEGATIVE); CLARITY SL CLOUDY (CLEAR); COLOR YELLOW (YELLOW); GLUCOSE NEGATIVE (NEGATIVE); KETONE NEGATIVE (NEGATIVE); LEUKO ESTERASE 2+ (NEGATIVE); NITRITE NEGATIVE (NEGATIVE); UROBILINOGEN 0.2 E.U./dl (0.2-1.0)
[2018-09-29 04:19] LABS: BACTERIA TRACE; WBC 21-30 wbc/hpf (0-5)
[2018-09-29 05:42] VITALS: BP 128/78
[2018-09-29 06:45] LABS: BASO # 0.1 10*3/uL (0.0-0.1); BASO % 0.6 % (0.0-1.0); EOS # 0.3 10*3/uL (0.0-0.4); EOS % 2.9 % (1.0-4.0); HEMATOCRIT 40.9 % (37.0-47.0); HEMOGLOBIN 14.2 g/dl (12.0-16.0); LYMPH % 33.8 % (27.0-41.0); MEAN CELL VOLUME 86.1 fl (81.0-99.0); MEAN CORPUSCULAR HGB 29.9 pg (27.0-31.0); MEAN CORPUSCULAR HGB CONC 34.7 g/dl (33.0-37.0); MEAN PLATELET VOLUME 9.5 fl (9.6-12.3); MONO # 0.5 10*3/uL (0.1-1.0); MONO % 5.3 % (3.0-9.0); NEUT % 57.2 % (47.0-73.0); PLATELET COUNT AUTOMATED 248 10*3/uL (130-400); RED BLOOD COUNT 4.75 10*6/uL (4.10-5.10); RED CELL DISTRI WIDTH 13.7 % (0-14.5); WHITE BLOOD COUNT 8.7 10*3/uL (4.8-10.8)
[2018-09-29] MEDS ORDERED: CYCLOBENZAPRINE5 M3 PO (06:51)
[2018-09-29] MEDS ORDERED: Motrin,Rufen800 MG PO (06:51)
[2018-09-29] MEDS ORDERED: KEFLEX500 M1 PO (06:52)
[2018-09-29 07:08] LABS: ALBUMIN 3.3 gm/dl (3.1-4.5); ALKALINE PHOSPHATASE 108 U/L (45-117); BUN 15 mg/dl (7-24); CHLORIDE 103 mmol/L (98-107); CREATININE 0.99 mg/dL (0.55-1.02); SGOT/AST 11 IU/L (3-35); SGPT/ALT 23 U/L (12-78); SODIUM 138 mmol/L (136-145); TOTAL PROTEIN 7.5 gm/dL (6.4-8.2)
[2018-11-01] MEDS ORDERED: MELATONIN5 M1 SL (11:55)
[2018-11-01] MEDS ORDERED: BUSPAR15 MG PO (12:06)
[2018-11-01] MEDS ORDERED: VISTARIL25 MG PO (12:07)
[2018-11-02] MEDS ORDERED: FEROSUL325 MG PO (01:12)
[2018-11-02] MEDS ORDERED: METFORMIN HYDR500 MG PO (05:22)
[2018-11-02] MEDS ORDERED: IMDUR SA60 M1 PO (10:27)
[2018-11-19] MEDS ORDERED: BASAG SOL SQ (02:36)
[2018-11-20] MEDS ORDERED: RANEXA500 M1 PO (13:46)
== END 2018-09-29 07:04 | disposition home or self-care (01) ==
LOC: ED 03:39
PROVIDERS: Emergency Medicine Emergency Medical Services
DX: N39.0 Urinary tract infection, site not specified (principal); M54.41 Lumbago with sciatica, right side; R26.89 Other abnormalities of gait and mobility; E11.40 Type 2 diabetes mellitus with diabetic neuropathy, unspecified; E11.22 Type 2 diabetes mellitus with diabetic chronic kidney disease; I12.9 Hypertensive chronic kidney disease with stage 1 through stage 4 chronic kidney disease, or unspecified chronic kidney disease; N18.3 Chronic kidney disease, stage 3 (moderate); I25.10 Atherosclerotic heart disease of native coronary artery without angina pectoris; G89.29 Other chronic pain; K21.9 Gastro-esophageal reflux disease without esophagitis; I25.2 Old myocardial infarction; E66.9 Obesity, unspecified; F17.210 Nicotine dependence, cigarettes, uncomplicated; Z91.041 Radiographic dye allergy status; Z79.84 Long term (current) use of oral hypoglycemic drugs; Z88.8 Allergy status to other drugs, medicaments and biological substances; Z88.6 Allergy status to analgesic agent; Z79.899 Other long term (current) drug therapy

== ENCOUNTER 2018-12-19 09:24 | Emergency (ER) | payer OTHER ==
[~2018-12-19] VITALS: Ht 165.1 cm; Wt 88.0 kg
[~2018-12-19 09:24] MED LIST changes: +BASAG SOL SQ; +BUSPAR15 MG PO; +CYCLOBENZAPRINE5 M3 PO; +FEROSUL325 MG PO; +MELATONIN5 M1 SL; +METFORMIN HYDR500 MG PO; +Motrin,Rufen800 MG PO; +VISTARIL25 MG PO
[2018-12-19 09:26] VITALS: BP 133/79
[2018-12-19] MEDS ORDERED: FLONASE ALLERG9.9 ML NAS (09:49)
[2018-12-19] MEDS ORDERED: ZYRTEC10 MG PO (09:49)
[2018-12-19] MEDS ORDERED: AUGMENTIN 875-875 MG PO (09:49)
== END 2018-12-19 10:00 | disposition home or self-care (01) ==
LOC: ED 09:24
DX: J01.90 Acute sinusitis, unspecified (principal); I10 Essential (primary) hypertension; E78.5 Hyperlipidemia, unspecified; I25.2 Old myocardial infarction; F17.210 Nicotine dependence, cigarettes, uncomplicated; Z91.041 Radiographic dye allergy status; Z88.8 Allergy status to other drugs, medicaments and biological substances; Z79.899 Other long term (current) drug therapy; Z79.82 Long term (current) use of aspirin; Z79.84 Long term (current) use of oral hypoglycemic drugs; Z90.710 Acquired absence of both cervix and uterus; Z90.49 Acquired absence of other specified parts of digestive tract; Z86.73 Personal history of transient ischemic attack (TIA), and cerebral infarction without residual deficits; Z86.718 Personal history of other venous thrombosis and embolism

== ENCOUNTER → 2019-01-21 | Outpatient (CLI) | payer OTHER ==
[~2019-01-21] MED LIST changes: +AUGMENTIN 875-875 MG PO; +MIRALAX POWDER17 G1 PO; +NAPROSYN500 MG PO; +OZEMPIC1 MG/0.75 SQ; +PYRIDIUM200 M1 PO; +TYLENOL325 M1 PO
== END | disposition home or self-care (01) ==
LOC: US 11:28
DX: I73.9 Peripheral vascular disease, unspecified (principal); F32.9 Major depressive disorder, single episode, unspecified; E11.9 Type 2 diabetes mellitus without complications; I10 Essential (primary) hypertension; Z72.0 Tobacco use

== ENCOUNTER 2019-03-09 09:45 | Emergency (ER) | payer OTHER ==
[~2019-03-09] VITALS: Ht 165.1 cm; Wt 86.2 kg
[~2019-03-09 09:45] MED LIST changes: -MIRALAX POWDER17 G1 PO; -NAPROSYN500 MG PO; -OZEMPIC1 MG/0.75 SQ; -PYRIDIUM200 M1 PO; -TYLENOL325 M1 PO
[2019-03-09 09:49] VITALS: BP 139/68
[2019-03-09 10:13] LABS: BASO # 0.1 10*3/uL (0.0-0.1); BASO % 0.6 % (0.0-1.0); EOS # 0.3 10*3/uL (0.0-0.4); EOS % 3.1 % (1.0-4.0); HEMATOCRIT 42.9 % (37.0-47.0); HEMOGLOBIN 13.6 g/dl (12.0-16.0); LYMPH % 22.6 % (27.0-41.0); MEAN CELL VOLUME 87.4 fl (81.0-99.0); MEAN CORPUSCULAR HGB 27.7 pg (27.0-31.0); MEAN CORPUSCULAR HGB CONC 31.7 g/dl (33.0-37.0); MEAN PLATELET VOLUME 9.6 fl (9.6-12.3); MONO # 0.3 10*3/uL (0.1-1.0); MONO % 3.3 % (3.0-9.0); NEUT # 6.1 10*3/uL (2.3-7.9); NEUT % 70.2 % (47.0-73.0); PLATELET COUNT AUTOMATED 266 10*3/uL (130-400); RED BLOOD COUNT 4.91 10*6/uL (4.10-5.10); RED CELL DISTRI WIDTH 14.3 % (0-14.5); WHITE BLOOD COUNT 8.7 10*3/uL (4.8-10.8)
[2019-03-09 10:25] LABS: BILIRUBIN NEGATIVE (NEGATIVE); BLOOD NEGATIVE (NEGATIVE); CLARITY CLOUDY (CLEAR); COLOR YELLOW (YELLOW); GLUCOSE 3+ (NEGATIVE); KETONE NEGATIVE (NEGATIVE); LEUKO ESTERASE NEGATIVE (NEGATIVE); NITRITE NEGATIVE (NEGATIVE); PH 5.5 (5.0-9.0); SPECIFIC GRAVITY <= 1.005 (1.005-1.030); UROBILINOGEN 0.2 E.U./dl (0.2-1.0)
[2019-03-09 10:29] LABS: ALBUMIN 3.8 gm/dl (3.1-4.5); ALKALINE PHOSPHATASE 91 U/L (45-117); BUN 16 mg/dl (7-24); CHLORIDE 105 mmol/L (98-107); CREATININE 1.06 mg/dL (0.55-1.02); LIPASE 196 U/L (73-393); POTASSIUM 4.3 mmol/L (3.5-5.1); SGOT/AST 10 IU/L (3-35); SGPT/ALT 17 U/L (12-78); SODIUM 138 mmol/L (136-145); TOTAL PROTEIN 7.8 gm/dL (6.4-8.2)
[2019-03-09 10:36] LABS: EPITHELIAL CELLS 20-30
[2019-03-09 10:38] LABS: BACTERIA 2+; YEAST 1+
[2019-03-09] MEDS ORDERED: PYRIDIUM200 M1 PO (11:20)
[2019-03-09] MEDS ORDERED: SEPTDS PO (11:20)
== END 2019-03-09 11:51 | disposition home or self-care (01) ==
LOC: ED 09:45
PROVIDERS: Physician Assistant
DX: R30.0 Dysuria (principal); E11.65 Type 2 diabetes mellitus with hyperglycemia; R42 Dizziness and giddiness; F17.210 Nicotine dependence, cigarettes, uncomplicated; Z91.041 Radiographic dye allergy status; Z88.8 Allergy status to other drugs, medicaments and biological substances; Z88.6 Allergy status to analgesic agent; Z79.2 Long term (current) use of antibiotics; Z79.899 Other long term (current) drug therapy; Z79.82 Long term (current) use of aspirin; Z79.4 Long term (current) use of insulin; Z90.710 Acquired absence of both cervix and uterus; Z90.49 Acquired absence of other specified parts of digestive tract

== ENCOUNTER 2019-03-22 01:23 | Emergency (ER) | payer OTHER ==
[~2019-03-22] VITALS: Wt 81.6 kg
--- NOTE | ~2019-03-22 | EKG ---
[place], [place] ELECTROCARDIOGRAM REPORT NAME: KT BUSTILLOS UNIT #: [id number] ROOM: DOCTOR: EPIPHANY DRAFT REPORT BIRTHDATE: [birth year] [facility] Test Date: 2019-03-22 Test Time: 01:43:59 Pat Name: KT BUSTILLOS Department: ED Room: Gender: F Supervisor [employer]: Angel Ramirez : 1965 Requested By: VALERIE DUONG Order Number: [id number] Reading MD: Andrea Solano MD Measurements Intervals [place] Rate: 72 P: -21 LA: 144 QRS: 62 QRSD: 99 T: 74 QT: 395 QTc: 433 Interpretive Statements Sinus rhythm Low voltage, extremity leads Compared to ECG 11/19/2018 04:33:10 No significant changes Electronically Signed On 03-26-2019 4:01:18 PDT by Andrea Solano MD CM:EKGRPT:ELECTROCARDIOGRAM REPORT [id number] 0401 VALERIE DUONG MD EPIPHANY DRAFT REPORT VALERIE DUONG MD
[~2019-03-22 01:23] MED LIST changes: +PYRIDIUM200 M1 PO
[2019-03-22] MEDS ORDERED: OZEMPIC1 MG/0.75 SQ (01:45)
[2019-03-22 01:47] LABS: BASO # 0.1 10*3/uL (0.0-0.1); BASO % 0.5 % (0.0-1.0); EOS # 0.3 10*3/uL (0.0-0.4); EOS % 2.8 % (1.0-4.0); HEMATOCRIT 43.6 % (37.0-47.0); LYMPH # 3.6 10*3/uL (1.3-4.4); LYMPH % 29.1 % (27.0-41.0); MEAN CELL VOLUME 86.7 fl (81.0-99.0); MEAN CORPUSCULAR HGB 27.8 pg (27.0-31.0); MEAN CORPUSCULAR HGB CONC 32.1 g/dl (33.0-37.0); MEAN PLATELET VOLUME 9.4 fl (9.6-12.3); MONO # 0.6 10*3/uL (0.1-1.0); NEUT # 7.7 10*3/uL (2.3-7.9); NEUT % 62.4 % (47.0-73.0); PLATELET COUNT AUTOMATED 305 10*3/uL (130-400); RED BLOOD COUNT 5.03 10*6/uL (4.10-5.10); WHITE BLOOD COUNT 12.3 10*3/uL (4.8-10.8)
[2019-03-22 02:02] LABS: BILIRUBIN NEGATIVE (NEGATIVE); BLOOD 3+ (NEGATIVE); CLARITY CLOUDY (CLEAR); COLOR YELLOW (YELLOW); GLUCOSE 3+ (NEGATIVE); KETONE NEGATIVE (NEGATIVE); LEUKO ESTERASE 1+ (NEGATIVE); NITRITE POSITIVE (NEGATIVE); PH 5.5 (5.0-9.0); UROBILINOGEN 0.2 E.U./dl (0.2-1.0)
[2019-03-22 02:05] LABS: ALKALINE PHOSPHATASE 113 U/L (45-117); BUN 12 mg/dl (7-24); CHLORIDE 103 mmol/L (98-107); CREATININE 1.17 mg/dL (0.55-1.02); LIPASE 282 U/L (73-393); POTASSIUM 3.9 mmol/L (3.5-5.1); SGOT/AST 5 IU/L (3-35); SGPT/ALT 21 U/L (12-78); SODIUM 139 mmol/L (136-145); TOTAL PROTEIN 8.2 gm/dL (6.4-8.2)
[2019-03-22 02:10] LABS: WBC 41-50 wbc/hpf (0-5)
[2019-03-22 02:12] LABS: BACTERIA 1+; RBC 31-40 rbc/hpf (0-2)
[2019-03-22 02:14] LABS: TROPONIN I < 0.015 ng/ml (<0.045)
[2019-03-22] MEDS ORDERED: ZOFRAN4 MG PO (02:44)
[2019-03-22] MEDS ORDERED: KEFLEX500 M1 PO (02:44)
[2019-03-22 03:01] VITALS: BP 125/70
== END 2019-03-22 03:20 | disposition home or self-care (01) ==
LOC: ED 01:23
PROVIDERS: Emergency Medicine Emergency Medical Services
DX: N39.0 Urinary tract infection, site not specified (principal); R19.7 Diarrhea, unspecified; R11.2 Nausea with vomiting, unspecified; I25.10 Atherosclerotic heart disease of native coronary artery without angina pectoris; K21.9 Gastro-esophageal reflux disease without esophagitis; E66.9 Obesity, unspecified; G40.909 Epilepsy, unspecified, not intractable, without status epilepticus; I12.9 Hypertensive chronic kidney disease with stage 1 through stage 4 chronic kidney disease, or unspecified chronic kidney disease; E11.22 Type 2 diabetes mellitus with diabetic chronic kidney disease; N18.3 Chronic kidney disease, stage 3 (moderate); E11.40 Type 2 diabetes mellitus with diabetic neuropathy, unspecified; F17.210 Nicotine dependence, cigarettes, uncomplicated; Z79.4 Long term (current) use of insulin; Z87.440 Personal history of urinary (tract) infections; Z91.041 Radiographic dye allergy status; Z88.8 Allergy status to other drugs, medicaments and biological substances; Z88.6 Allergy status to analgesic agent; Z79.899 Other long term (current) drug therapy; Z79.82 Long term (current) use of aspirin

== ENCOUNTER → 2019-03-27 | Outpatient (CLI) | payer OTHER ==
[~2019-03-27] MED LIST changes: +MIRALAX POWDER17 G1 PO; +NAPROSYN500 MG PO; +OZEMPIC1 MG/0.75 SQ; +TYLENOL325 M1 PO
[2019-03-27 10:33] LABS: BASO # 0.1 10*3/uL (0.0-0.1); BASO % 0.5 % (0.0-1.0); EOS # 0.3 10*3/uL (0.0-0.4); EOS % 2.8 % (1.0-4.0); HEMATOCRIT 45.9 % (37.0-47.0); HEMOGLOBIN 14.9 g/dl (12.0-16.0); LYMPH % 30.6 % (27.0-41.0); MEAN CELL VOLUME 86.3 fl (81.0-99.0); MEAN CORPUSCULAR HGB CONC 32.5 g/dl (33.0-37.0); MEAN PLATELET VOLUME 9.7 fl (9.6-12.3); MONO # 0.5 10*3/uL (0.1-1.0); MONO % 4.7 % (3.0-9.0); NEUT % 61.2 % (47.0-73.0); PLATELET COUNT AUTOMATED 317 10*3/uL (130-400); RED BLOOD COUNT 5.32 10*6/uL (4.10-5.10); RED CELL DISTRI WIDTH 14.3 % (0-14.5); WHITE BLOOD COUNT 9.8 10*3/uL (4.8-10.8)
[2019-03-27 11:09] LABS: ALBUMIN 3.9 gm/dl (3.1-4.5); CREATININE 1.15 mg/dL (0.55-1.02); TOTAL PROTEIN 8.4 gm/dL (6.4-8.2)
[2019-03-27 12:06] LABS: VITAMIN D, 25-HYDROXY 28.8 ng/mL (30-100)
[2019-03-28 12:06] LABS: CREATININE,URINE 65.5 mg/dL (Not Estab.); MICRO ALBUMIN/CRE RATIO 40.9 (0.0-30.0)
== END | disposition home or self-care (01) ==
LOC: LAB 10:11
PROVIDERS: Internal Medicine Endocrinology, Diabetes & Metabolism; Nurse Practitioner Family
DX: E11.42 Type 2 diabetes mellitus with diabetic polyneuropathy (principal); F17.210 Nicotine dependence, cigarettes, uncomplicated; R30.0 Dysuria; R19.7 Diarrhea, unspecified; R79.89 Other specified abnormal findings of blood chemistry; D72.829 Elevated white blood cell count, unspecified; E55.9 Vitamin D deficiency, unspecified

== ENCOUNTER 2019-03-28 10:44 | Emergency (ER) | payer OTHER ==
[~2019-03-28] VITALS: Ht 165.1 cm; Wt 84.8 kg
[~2019-03-28 10:44] MED LIST changes: -MIRALAX POWDER17 G1 PO; -NAPROSYN500 MG PO; -TYLENOL325 M1 PO
[2019-03-28 10:45] VITALS: BP 144/79
[2019-03-28 11:40] LABS: BASO # 0.1 10*3/uL (0.0-0.1); BASO % 0.5 % (0.0-1.0); EOS # 0.3 10*3/uL (0.0-0.4); EOS % 2.6 % (1.0-4.0); HEMOGLOBIN 14.3 g/dl (12.0-16.0); LYMPH # 2.8 10*3/uL (1.3-4.4); MEAN CELL VOLUME 84.9 fl (81.0-99.0); MEAN CORPUSCULAR HGB 27.6 pg (27.0-31.0); MEAN CORPUSCULAR HGB CONC 32.5 g/dl (33.0-37.0); MEAN PLATELET VOLUME 9.7 fl (9.6-12.3); MONO # 0.4 10*3/uL (0.1-1.0); MONO % 4.5 % (3.0-9.0); NEUT # 6.1 10*3/uL (2.3-7.9); NEUT % 63.1 % (47.0-73.0); PLATELET COUNT AUTOMATED 293 10*3/uL (130-400); RED BLOOD COUNT 5.18 10*6/uL (4.10-5.10); RED CELL DISTRI WIDTH 14.1 % (0-14.5); WHITE BLOOD COUNT 9.7 10*3/uL (4.8-10.8)
[2019-03-28 11:50] LABS: BILIRUBIN NEGATIVE (NEGATIVE); BLOOD 1+ (NEGATIVE); CLARITY SL CLOUDY (CLEAR); COLOR YELLOW (YELLOW); GLUCOSE 3+ (NEGATIVE); KETONE NEGATIVE (NEGATIVE); LEUKO ESTERASE NEGATIVE (NEGATIVE); NITRITE NEGATIVE (NEGATIVE); PH 5.5 (5.0-9.0); UROBILINOGEN 0.2 E.U./dl (0.2-1.0)
[2019-03-28 11:56] LABS: ALBUMIN 3.6 gm/dl (3.1-4.5); ALKALINE PHOSPHATASE 101 U/L (45-117); BUN 15 mg/dl (7-24); CHLORIDE 106 mmol/L (98-107); CREATININE 1.08 mg/dL (0.55-1.02); LIPASE 252 U/L (73-393); POTASSIUM 4.4 mmol/L (3.5-5.1); SGOT/AST 10 IU/L (3-35); SGPT/ALT 21 U/L (12-78); SODIUM 138 mmol/L (136-145); TOTAL PROTEIN 7.8 gm/dL (6.4-8.2)
[2019-03-28 12:08] LABS: BACTERIA 1+; WBC 16-20 wbc/hpf (0-5); YEAST 1+
[2019-03-28 12:10] LABS: EPITHELIAL CELLS 20-30
[2019-03-28 12:14] LABS: RBC 31-40 rbc/hpf (0-2)
[2019-03-28] MEDS ORDERED: NAPROSYN500 MG PO (12:24)
[2019-03-28] MEDS ORDERED: TYLENOL325 M1 PO (12:24)
[2019-03-28] MEDS ORDERED: MIRALAX POWDER17 G1 PO (12:31)
== END 2019-03-28 12:40 | disposition home or self-care (01) ==
LOC: ED 10:44
PROVIDERS: Family Medicine
DX: R10.31 Right lower quadrant pain (principal); M54.5 Low back pain; R19.7 Diarrhea, unspecified; E11.9 Type 2 diabetes mellitus without complications; I10 Essential (primary) hypertension; I25.10 Atherosclerotic heart disease of native coronary artery without angina pectoris; K21.9 Gastro-esophageal reflux disease without esophagitis; I12.9 Hypertensive chronic kidney disease with stage 1 through stage 4 chronic kidney disease, or unspecified chronic kidney disease; E11.22 Type 2 diabetes mellitus with diabetic chronic kidney disease; N18.3 Chronic kidney disease, stage 3 (moderate); E11.40 Type 2 diabetes mellitus with diabetic neuropathy, unspecified; G40.909 Epilepsy, unspecified, not intractable, without status epilepticus; E66.9 Obesity, unspecified; F17.210 Nicotine dependence, cigarettes, uncomplicated; Z87.440 Personal history of urinary (tract) infections; Z91.041 Radiographic dye allergy status; Z88.8 Allergy status to other drugs, medicaments and biological substances; Z88.6 Allergy status to analgesic agent; Z79.899 Other long term (current) drug therapy; Z79.82 Long term (current) use of aspirin; Z86.73 Personal history of transient ischemic attack (TIA), and cerebral infarction without residual deficits; Z79.4 Long term (current) use of insulin; Z87.19 Personal history of other diseases of the digestive system; Z90.710 Acquired absence of both cervix and uterus; Z98.890 Other specified postprocedural states; Z98.51 Tubal ligation status

== ENCOUNTER → 2019-06-05 | Outpatient (CLI) | payer OTHER ==
[~2019-06-05] MED LIST changes: +MIRALAX POWDER17 G1 PO; +NAPROSYN500 MG PO; +TYLENOL325 M1 PO
== END | disposition home or self-care (01) ==
LOC: RAD 09:27
DX: Z23 Encounter for immunization (principal); E11.9 Type 2 diabetes mellitus without complications; K59.00 Constipation, unspecified; Z90.49 Acquired absence of other specified parts of digestive tract; Z90.710 Acquired absence of both cervix and uterus

== ENCOUNTER → 2019-07-16 | Outpatient (CLI) | payer OTHER ==
[2019-07-16 10:16] LABS: ALBUMIN 3.2 gm/dl (3.1-4.5); ALKALINE PHOSPHATASE 107 U/L (45-117); BUN 9 mg/dl (7-24); CHLORIDE 108 mmol/L (98-107); CHOLESTEROL 211 mg/dL (<200); CREATININE 0.96 mg/dL (0.55-1.02); HDL CHOLESTEROL 32 mg/dl (40-60); POTASSIUM 4.4 mmol/L (3.5-5.1); SGOT/AST 9 IU/L (3-35); SGPT/ALT 22 U/L (12-78); SODIUM 140 mmol/L (136-145); TOTAL PROTEIN 7.2 gm/dL (6.4-8.2); TRIGLYCERIDES 508 mg/dl (<150)
[2019-07-17 05:09] LABS: CREATININE,URINE 158.9 mg/dL (Not Estab.)
== END | disposition home or self-care (01) ==
LOC: LAB 09:15
PROVIDERS: Internal Medicine Endocrinology, Diabetes & Metabolism
DX: E11.9 Type 2 diabetes mellitus without complications (principal); E55.9 Vitamin D deficiency, unspecified

== ENCOUNTER 2019-07-25 22:08 | Emergency (ER) | payer OTHER ==
[~2019-07-25] VITALS: Ht 165.1 cm; Wt 83.9 kg
[2019-07-25] MEDS ORDERED: NITROGLYCERIN0.4 MG SL (22:13)
[2019-07-25] MEDS ORDERED: JARDIANCE25 MG PO (22:13)
[2019-07-25] MEDS ORDERED: FENOFIBRATE MI134 MG PO (22:13)
[2019-07-25] MEDS ORDERED: HYDROXYZINE PAM25 M1 PO (22:14)
[2019-07-25] MEDS ORDERED: TOUJEO MAX300 UNIT/1 SQ (22:14)
[2019-07-26 00:19] LABS: BASO # 0.1 10*3/uL (0.0-0.1); BASO % 0.6 % (0.0-1.0); EOS # 0.2 10*3/uL (0.0-0.4); EOS % 2.6 % (1.0-4.0); HEMATOCRIT 41.5 % (37.0-47.0); HEMOGLOBIN 12.9 g/dl (12.0-16.0); LYMPH # 2.9 10*3/uL (1.3-4.4); LYMPH % 37.7 % (27.0-41.0); MEAN CELL VOLUME 82.7 fl (81.0-99.0); MEAN CORPUSCULAR HGB 25.7 pg (27.0-31.0); MEAN CORPUSCULAR HGB CONC 31.1 g/dl (33.0-37.0); MEAN PLATELET VOLUME 9.9 fl (9.6-12.3); MONO # 0.4 10*3/uL (0.1-1.0); MONO % 5.4 % (3.0-9.0); NEUT # 4.2 10*3/uL (2.3-7.9); NEUT % 53.3 % (47.0-73.0); PLATELET COUNT AUTOMATED 291 10*3/uL (130-400); RED BLOOD COUNT 5.02 10*6/uL (4.10-5.10); RED CELL DISTRI WIDTH 14.9 % (0-14.5); WHITE BLOOD COUNT 7.8 10*3/uL (4.8-10.8)
[2019-07-26 00:26] LABS: ALBUMIN 3.5 gm/dl (3.1-4.5); ALKALINE PHOSPHATASE 92 U/L (45-117); BUN 22 mg/dl (7-24); CHLORIDE 105 mmol/L (98-107); CREATININE 1.08 mg/dL (0.55-1.02); LIPASE 179 U/L (73-393); POTASSIUM 4.1 mmol/L (3.5-5.1); SGOT/AST 11 IU/L (3-35); SGPT/ALT 21 U/L (12-78); SODIUM 137 mmol/L (136-145); TOTAL PROTEIN 7.4 gm/dL (6.4-8.2)
[2019-07-26 01:04] LABS: BILIRUBIN NEGATIVE (NEGATIVE); BLOOD NEGATIVE (NEGATIVE); CLARITY CLEAR (CLEAR); COLOR YELLOW (YELLOW); GLUCOSE 3+ (NEGATIVE); KETONE NEGATIVE (NEGATIVE); LEUKO ESTERASE 1+ (NEGATIVE); NITRITE NEGATIVE (NEGATIVE); PH 6.5 (5.0-9.0)
[2019-07-26 01:19] LABS: BACTERIA 2+
[2019-07-26 05:11] VITALS: BP 134/81
== END 2019-07-26 05:12 | disposition home or self-care (01) ==
LOC: ED 22:08
PROVIDERS: Emergency Medicine
DX: R10.9 Unspecified abdominal pain (principal); R25.2 Cramp and spasm; R11.0 Nausea; E11.22 Type 2 diabetes mellitus with diabetic chronic kidney disease; I12.9 Hypertensive chronic kidney disease with stage 1 through stage 4 chronic kidney disease, or unspecified chronic kidney disease; N18.3 Chronic kidney disease, stage 3 (moderate); I25.2 Old myocardial infarction; E66.9 Obesity, unspecified; G40.909 Epilepsy, unspecified, not intractable, without status epilepticus; I25.10 Atherosclerotic heart disease of native coronary artery without angina pectoris; K21.9 Gastro-esophageal reflux disease without esophagitis; F17.210 Nicotine dependence, cigarettes, uncomplicated; Z91.041 Radiographic dye allergy status; Z88.8 Allergy status to other drugs, medicaments and biological substances; Z79.899 Other long term (current) drug therapy; Z79.82 Long term (current) use of aspirin; Z79.4 Long term (current) use of insulin; Z86.73 Personal history of transient ischemic attack (TIA), and cerebral infarction without residual deficits

== ENCOUNTER 2019-08-16 05:52 | Emergency (ER) | payer OTHER ==
[~2019-08-16] VITALS: Ht 165.1 cm; Wt 81.6 kg
[~2019-08-16 05:52] MED LIST changes: +FENOFIBRATE MI134 MG PO; +HYDROXYZINE PAM25 M1 PO; +JARDIANCE25 MG PO; +NITROGLYCERIN0.4 MG SL; +TOUJEO MAX300 UNIT/1 SQ
[2019-08-16 06:33] LABS: BASO # 0.1 10*3/uL (0.0-0.1); BASO % 0.7 % (0.0-1.0); EOS # 0.2 10*3/uL (0.0-0.4); EOS % 1.6 % (1.0-4.0); LYMPH # 4.1 10*3/uL (1.3-4.4); LYMPH % 27.2 % (27.0-41.0); MEAN CELL VOLUME 82.8 fl (81.0-99.0); MEAN CORPUSCULAR HGB 26.3 pg (27.0-31.0); MEAN CORPUSCULAR HGB CONC 31.7 g/dl (33.0-37.0); MEAN PLATELET VOLUME 9.8 fl (9.6-12.3); MONO % 6.4 % (3.0-9.0); NEUT # 9.7 10*3/uL (2.3-7.9); NEUT % 63.6 % (47.0-73.0); PLATELET COUNT AUTOMATED 414 10*3/uL (130-400); RED BLOOD COUNT 4.95 10*6/uL (4.10-5.10); WHITE BLOOD COUNT 15.2 10*3/uL (4.8-10.8)
[2019-08-16 06:49] LABS: ALBUMIN 3.7 gm/dl (3.1-4.5); CREATININE 1.26 mg/dL (0.55-1.02); TOTAL PROTEIN 7.6 gm/dL (6.4-8.2)
[2019-08-16 07:06] LABS: BILIRUBIN NEGATIVE (NEGATIVE); BLOOD 3+ (NEGATIVE); CLARITY SL CLOUDY (CLEAR); COLOR YELLOW (YELLOW); GLUCOSE 3+ (NEGATIVE); KETONE NEGATIVE (NEGATIVE); LEUKO ESTERASE 1+ (NEGATIVE); NITRITE NEGATIVE (NEGATIVE); SPECIFIC GRAVITY 1.015 (1.005-1.030); UROBILINOGEN 0.2 E.U./dl (0.2-1.0)
[2019-08-16 07:16] LABS: WBC TNTC wbc/hpf (0-5)
[2019-08-16 07:17] LABS: BACTERIA 3+; RBC TNTC rbc/hpf (0-2)
[2019-08-16 11:52] VITALS: BP 170/89
== END 2019-08-16 12:14 | disposition short-term general hospital (02) ==
LOC: ED 05:52
PROVIDERS: Emergency Medicine
DX: N13.2 Hydronephrosis with renal and ureteral calculous obstruction (principal); N39.0 Urinary tract infection, site not specified; I25.10 Atherosclerotic heart disease of native coronary artery without angina pectoris; G40.909 Epilepsy, unspecified, not intractable, without status epilepticus; E11.43 Type 2 diabetes mellitus with diabetic autonomic (poly)neuropathy; K21.9 Gastro-esophageal reflux disease without esophagitis; E66.09 Other obesity due to excess calories; I12.9 Hypertensive chronic kidney disease with stage 1 through stage 4 chronic kidney disease, or unspecified chronic kidney disease; E11.22 Type 2 diabetes mellitus with diabetic chronic kidney disease; N18.3 Chronic kidney disease, stage 3 (moderate); I25.2 Old myocardial infarction; F17.210 Nicotine dependence, cigarettes, uncomplicated; Z91.041 Radiographic dye allergy status; Z79.4 Long term (current) use of insulin; Z88.8 Allergy status to other drugs, medicaments and biological substances; Z88.6 Allergy status to analgesic agent; Z79.899 Other long term (current) drug therapy; Z79.82 Long term (current) use of aspirin; Z86.73 Personal history of transient ischemic attack (TIA), and cerebral infarction without residual deficits

== ENCOUNTER 2019-09-04 07:54 | Inpatient (IN) | payer OTHER ==
[~2019-09-04] VITALS: Ht 165.1 cm; Wt 86.3 kg
[2019-09-04] VITALS (7 sets, daily range): BP systolic 114–134; BP diastolic 56–82
--- NOTE | 2019-09-04 08:07 | NUR ---
PATIENT DENIES ANY WOUNDS. A&OX4.
[2019-09-04 08:58] LABS: BASO # 0.1 10*3/uL (0.0-0.1); EOS # 0.2 10*3/uL (0.0-0.4); EOS % 3.8 % (1.0-4.0); HEMATOCRIT 39.9 % (37.0-47.0); HEMOGLOBIN 12.1 g/dl (12.0-16.0); LYMPH # 1.8 10*3/uL (1.3-4.4); LYMPH % 30.1 % (27.0-41.0); MEAN CELL VOLUME 84.5 fl (81.0-99.0); MEAN CORPUSCULAR HGB 25.6 pg (27.0-31.0); MEAN CORPUSCULAR HGB CONC 30.3 g/dl (33.0-37.0); MEAN PLATELET VOLUME 9.6 fl (9.6-12.3); MONO # 0.4 10*3/uL (0.1-1.0); MONO % 5.8 % (3.0-9.0); NEUT # 3.6 10*3/uL (2.3-7.9); NEUT % 59.1 % (47.0-73.0); PLATELET COUNT AUTOMATED 356 10*3/uL (130-400); RED BLOOD COUNT 4.72 10*6/uL (4.10-5.10); RED CELL DISTRI WIDTH 16.1 % (0-14.5)
[2019-09-04 09:15] LABS: LIPASE 144 U/L (73-393)
[2019-09-04 09:35] LABS: ACT PARTIAL THROMBO TIME 23.1 SECONDS (20.0-32.1); INTERNATIONAL NORM RATIO 0.9 (2.0-3.5)
[2019-09-04 10:25] LABS: ALBUMIN 3.4 gm/dl (3.1-4.5); ALKALINE PHOSPHATASE 76 U/L (45-117); BUN 23 mg/dl (7-24); CHLORIDE 111 mmol/L (98-107); CREATININE 1.12 mg/dL (0.55-1.02); POTASSIUM 4.3 mmol/L (3.5-5.1); SGOT/AST 26 IU/L (3-35); SGPT/ALT 34 U/L (12-78); SODIUM 142 mmol/L (136-145); TOTAL PROTEIN 6.9 gm/dL (6.4-8.2)
[2019-09-04 10:26] LABS: TROPONIN I < 0.015 ng/ml (<0.045)
--- NOTE | 2019-09-04 12:39 | NUR ---
PATIENT TAKEN TO 4TH FLOOR BY THIS NURSE BEDSIDE GIVEN TO MADELYN MITCHELL.
--- NOTE | 2019-09-04 12:56 | NUR ---
[facility] 54, admitted to , under the services of RUTHANN Hurst DO with a diagnosis of CHEST PAIN, RULE OUT VA. Chief complaint is MID-STERNAL CHEST PAIN. Patient arrived via ambulance from ER. Monitor applied. Initial assessment completed. Vital signs taken and recorded. RUTHANN HURST DO notified of admission to the unit. Orders received. See assessment for past medical history, medications and allergies. Patient and/or family oriented to unit. [address] visitation policy reviewed. Clothing/patient valuable form completed. MADELYN BONNER.
[2019-09-04] MEDS ORDERED: MELATONIN5 M6 PO (14:24)
[2019-09-04] MEDS ORDERED: NAPROSYN500 MG PO (14:36)
[2019-09-04] MEDS ORDERED: DULOXETINE HCL30 MG PO (14:37)
[2019-09-04] MEDS ORDERED: FLUTICASONE P15.8 ML NAS (14:41)
[2019-09-04] MEDS ORDERED: OXYBUTYNIN CHLOR5 M1 PO (14:42)
[2019-09-04] MEDS ORDERED: PROAIR RESPICL90 MCG INH (14:43)
[2019-09-04] MEDS ORDERED: HUMALOG100 UNIT/2 SC (14:54)
--- NOTE | 2019-09-04 14:54 | NUR ---
MEDS REVIEWED AND UPDATED PER POLICY.
--- NOTE | 2019-09-04 14:59 | NUR ---
CALLED AT THIS TIME REGARDING CONSULT. MESSAGE LEFT WITH ANSWERING SERVICE.
--- NOTE | 2019-09-04 15:01 | NUR ---
AWARE OF CONSULT.
--- NOTE | 2019-09-04 15:58 | NUR ---
HOME MEDS TAKEN TO PHARMACY.
--- NOTE | 2019-09-04 20:36 | NUR ---
PATIENT COMPLAINING OF ANXIETY. SPOKE WITH DR. COPPOLA. NO CHEST PAIN OR SHORTNESS OF BREATH. STATES SHE JUST FEELS NERVOUS. DR. COPPOLA STATED HE WOULD PUT IN FOR VISTARIL
--- NOTE | 2019-09-04 23:00 | NUR ---
PT SLEEPING, NO DISTRESS NOTED. BREATHING IS EASY AND REGULAR. VISTARIL APPEARS EFFECTIVE, CALL LIGHT WITHIN REACH, WILL MONITOR
[2019-09-05 01:04] VITALS: BP 152/73
--- NOTE | 2019-09-05 04:21 | NUR ---
24 HR chart check completed.
--- NOTE | 2019-09-05 06:25 | NUR ---
INFORMED SIGNED CONSENT OBTAINED FOR LEXISCAN STRESS TEST WITH DR KUMARI. RESTING EKG NSR WITH PVC HR 687 BP 104/64. POX 98% LUNGS CLEAR. PT COMPLETED ONE MINUTE OF A LEXISCAN PROTOCOL WITH PT RECEIVING LEXISCAN 0.4MG IV OVER 10 SECONDS. PVC'S NOTED, NON DIAGNOSTIC ST CHANGES SEEN. PT C/O SOB AND CHEST HEAVINESS WITH INJECTION. LAST RECOVERY HR OF 80 BP 100/58. PT IN STABLE CONDITION, AWIATING NUCLEAR IMAGES.
--- NOTE | 2019-09-05 07:33 | NUR ---
PATIENT OFF FLOOR FOR SCHEDULED STRESS TEST.
--- NOTE | 2019-09-05 08:02 | NUR ---
PATIENT RETURNED TO ROOM.
[2019-09-05 08:47] LABS: BASO # 0.1 10*3/uL (0.0-0.1); BASO % 0.8 % (0.0-1.0); EOS # 0.2 10*3/uL (0.0-0.4); EOS % 3.2 % (1.0-4.0); HEMATOCRIT 39.5 % (37.0-47.0); HEMOGLOBIN 12.2 g/dl (12.0-16.0); LYMPH # 1.9 10*3/uL (1.3-4.4); LYMPH % 31.9 % (27.0-41.0); MEAN CELL VOLUME 82.8 fl (81.0-99.0); MEAN CORPUSCULAR HGB 25.6 pg (27.0-31.0); MEAN CORPUSCULAR HGB CONC 30.9 g/dl (33.0-37.0); MEAN PLATELET VOLUME 9.5 fl (9.6-12.3); MONO # 0.4 10*3/uL (0.1-1.0); MONO % 6.3 % (3.0-9.0); NEUT # 3.5 10*3/uL (2.3-7.9); NEUT % 57.5 % (47.0-73.0); PLATELET COUNT AUTOMATED 345 10*3/uL (130-400); RED BLOOD COUNT 4.77 10*6/uL (4.10-5.10); RED CELL DISTRI WIDTH 16.1 % (0-14.5)
--- NOTE | 2019-09-05 09:00 | NUR ---
Boilermaker Mechanic in to talk to patient. Patient states lives at [facility] with . There are no steps in the home. Physician: luz du Pharmacy: [facility] health services: none Patient's level of ADLs: INDEPENDENT Patient has working utilities: all working DME: none Follow-up physician's appointment after d/c: will be made by hospitalist nurse director upon discharge Does patient want to access PORTAL?: no Discharge plan discussed with patient, she states she is independent in adls and ambulation, she states she and her are living in the [facility], she states the skilled nursing staff is helping them find permanent housing, she states she will return to the skilled nursing when medically stable for discharge she states she will have a ride back to the skilled nursing, patient denies any other needs at this time. RATNA PAIGE
[2019-09-05 09:01] LABS: BUN 24 mg/dl (7-24); CHLORIDE 111 mmol/L (98-107); CREATININE 1.12 mg/dL (0.55-1.02); POTASSIUM 4.3 mmol/L (3.5-5.1); SODIUM 140 mmol/L (136-145)
--- NOTE | 2019-09-05 11:15 | NUR ---
NOTIFIED REGARDING CRITICAL BLOOD SUGAR OF 406. NO NEW ORDERS AT THIS TIME. 14 UNITS OF INSULIN TO BE GIVEN PER SLIDING SCALE. WILL MONITOR.
[2019-09-05 12:00] VITALS: BP 117/52
--- NOTE | 2019-09-05 12:28 | NUR ---
case management was asked to check on cost of xeralto, per [facility] pharmacy patient will have $0 copay
--- NOTE | 2019-09-05 15:27 | NUR ---
MEDS RETRIEVED FROM PHARMACY.
--- NOTE | 2019-09-05 15:29 | NUR ---
Discharge instructions reviewed with patient/family. Patient receptive and verbalizes understanding. Follow-up care arranged. Written instructions given to patient/family. MADELYN BONNER.
== END 2019-09-05 15:29 | disposition home or self-care (01) | DRG 756 ==
LOC: ED 07:54 → 4E 11:32 → EDHOLD 11:32 → 4E 12:28
PROVIDERS: Emergency Medicine; Internal Medicine; ADMIT Internal Medicine
PROC: 4A02XM4 Measurement of Cardiac Total Activity, External Approach (ICD-10-PCS; principal; 2019-09-05)
PROC: 3E073KZ Introduction of Other Diagnostic Substance into Coronary Artery, Percutaneous Approach (ICD-10-PCS; 2019-09-05)
DX: F41.9 Anxiety disorder, unspecified (principal); K21.9 Gastro-esophageal reflux disease without esophagitis; I25.10 Atherosclerotic heart disease of native coronary artery without angina pectoris; E87.8 Other disorders of electrolyte and fluid balance, not elsewhere classified; E83.41 Hypermagnesemia; F17.210 Nicotine dependence, cigarettes, uncomplicated; F43.10 Post-traumatic stress disorder, unspecified; I12.9 Hypertensive chronic kidney disease with stage 1 through stage 4 chronic kidney disease, or unspecified chronic kidney disease; N18.3 Chronic kidney disease, stage 3 (moderate); E11.22 Type 2 diabetes mellitus with diabetic chronic kidney disease; E11.65 Type 2 diabetes mellitus with hyperglycemia; E11.42 Type 2 diabetes mellitus with diabetic polyneuropathy; E78.5 Hyperlipidemia, unspecified; M19.90 Unspecified osteoarthritis, unspecified site; K57.90 Diverticulosis of intestine, part unspecified, without perforation or abscess without bleeding; G40.909 Epilepsy, unspecified, not intractable, without status epilepticus; Z90.710 Acquired absence of both cervix and uterus; Z90.49 Acquired absence of other specified parts of digestive tract; Z98.891 History of uterine scar from previous surgery; Z80.42 Family history of malignant neoplasm of prostate; Z82.61 Family history of arthritis; Z86.73 Personal history of transient ischemic attack (TIA), and cerebral infarction without residual deficits; Z71.6 Tobacco abuse counseling; Z95.5 Presence of coronary angioplasty implant and graft; I25.2 Old myocardial infarction; Z79.4 Long term (current) use of insulin; Z88.8 Allergy status to other drugs, medicaments and biological substances; Z88.6 Allergy status to analgesic agent; Z91.041 Radiographic dye allergy status; Z79.82 Long term (current) use of aspirin; Z79.899 Other long term (current) drug therapy; Z79.02 Long term (current) use of antithrombotics/antiplatelets; Z82.49 Family history of ischemic heart disease and other diseases of the circulatory system

== ENCOUNTER 2019-10-09 11:11 | Emergency (ER) | payer OTHER ==
[~2019-10-09] VITALS: Ht 165.1 cm; Wt 87.5 kg
[~2019-10-09 11:11] MED LIST changes: +DULOXETINE HCL30 MG PO; +FLUTICASONE P15.8 ML NAS; +MELATONIN5 M6 PO; +OXYBUTYNIN CHLOR5 M1 PO; +PROAIR RESPICL90 MCG INH
[2019-10-09 13:08] LABS: BASO # 0.1 10*3/uL (0.0-0.1); BASO % 0.7 % (0.0-1.0); EOS # 0.3 10*3/uL (0.0-0.4); EOS % 4.2 % (1.0-4.0); HEMATOCRIT 40.8 % (37.0-47.0); HEMOGLOBIN 12.7 g/dl (12.0-16.0); LYMPH # 2.2 10*3/uL (1.3-4.4); LYMPH % 31.7 % (27.0-41.0); MEAN CELL VOLUME 83.6 fl (81.0-99.0); MEAN CORPUSCULAR HGB CONC 31.1 g/dl (33.0-37.0); MEAN PLATELET VOLUME 9.6 fl (9.6-12.3); MONO # 0.4 10*3/uL (0.1-1.0); MONO % 5.7 % (3.0-9.0); NEUT % 57.4 % (47.0-73.0); PLATELET COUNT AUTOMATED 365 10*3/uL (130-400); RED BLOOD COUNT 4.88 10*6/uL (4.10-5.10); RED CELL DISTRI WIDTH 15.6 % (0-14.5); WHITE BLOOD COUNT 6.9 10*3/uL (4.8-10.8)
[2019-10-09 13:11] VITALS: BP 115/75
[2019-10-09 13:22] LABS: ALBUMIN 3.4 gm/dl (3.1-4.5); ALKALINE PHOSPHATASE 64 U/L (45-117); BUN 16 mg/dl (7-24); CHLORIDE 107 mmol/L (98-107); CREATININE 1.05 mg/dL (0.55-1.02); POTASSIUM 4.5 mmol/L (3.5-5.1); SGOT/AST 19 IU/L (3-35); SGPT/ALT 33 U/L (12-78); SODIUM 138 mmol/L (136-145); TOTAL PROTEIN 7.1 gm/dL (6.4-8.2)
== END 2019-10-09 15:34 | disposition home or self-care (01) ==
LOC: ED 11:11
PROVIDERS: Emergency Medicine
DX: G43.909 Migraine, unspecified, not intractable, without status migrainosus (principal); F41.9 Anxiety disorder, unspecified; I25.10 Atherosclerotic heart disease of native coronary artery without angina pectoris; I12.9 Hypertensive chronic kidney disease with stage 1 through stage 4 chronic kidney disease, or unspecified chronic kidney disease; E11.22 Type 2 diabetes mellitus with diabetic chronic kidney disease; N18.3 Chronic kidney disease, stage 3 (moderate); K21.9 Gastro-esophageal reflux disease without esophagitis; G40.909 Epilepsy, unspecified, not intractable, without status epilepticus; I25.2 Old myocardial infarction; Z91.041 Radiographic dye allergy status; F17.200 Nicotine dependence, unspecified, uncomplicated; Z90.49 Acquired absence of other specified parts of digestive tract; Z88.8 Allergy status to other drugs, medicaments and biological substances; Z79.82 Long term (current) use of aspirin; Z79.84 Long term (current) use of oral hypoglycemic drugs; Z79.899 Other long term (current) drug therapy; Z90.710 Acquired absence of both cervix and uterus; Z86.73 Personal history of transient ischemic attack (TIA), and cerebral infarction without residual deficits

== ENCOUNTER 2019-12-15 01:55 | Emergency (ER) | payer OTHER ==
[~2019-12-15] VITALS: Ht 165.1 cm; Wt 88.5 kg
[2019-12-15 02:04] VITALS: BP 138/69
== END 2019-12-15 05:05 | disposition home or self-care (01) ==
LOC: ED 01:55
DX: G43.909 Migraine, unspecified, not intractable, without status migrainosus (principal); Z03.818 Encounter for observation for suspected exposure to other biological agents ruled out; I25.10 Atherosclerotic heart disease of native coronary artery without angina pectoris; F41.9 Anxiety disorder, unspecified; K21.9 Gastro-esophageal reflux disease without esophagitis; E11.22 Type 2 diabetes mellitus with diabetic chronic kidney disease; I12.9 Hypertensive chronic kidney disease with stage 1 through stage 4 chronic kidney disease, or unspecified chronic kidney disease; N18.3 Chronic kidney disease, stage 3 (moderate); I25.2 Old myocardial infarction; G40.909 Epilepsy, unspecified, not intractable, without status epilepticus; Z91.041 Radiographic dye allergy status; Z88.8 Allergy status to other drugs, medicaments and biological substances; Z88.6 Allergy status to analgesic agent; Z79.82 Long term (current) use of aspirin; Z79.899 Other long term (current) drug therapy; Z79.4 Long term (current) use of insulin; Z98.61 Coronary angioplasty status; Z90.710 Acquired absence of both cervix and uterus; Z98.890 Other specified postprocedural states; Z90.49 Acquired absence of other specified parts of digestive tract; Z98.51 Tubal ligation status; Z86.73 Personal history of transient ischemic attack (TIA), and cerebral infarction without residual deficits

== ENCOUNTER 2020-01-05 18:27 | Emergency (ER) | payer OTHER ==
[~2020-01-05] VITALS: Ht 165.1 cm; Wt 87.1 kg
[2020-01-05 18:51] LABS: BASO # 0.1 10*3/uL (0.0-0.1); BASO % 0.9 % (0.0-1.0); EOS # 0.3 10*3/uL (0.0-0.4); EOS % 3.3 % (1.0-4.0); HEMATOCRIT 39.1 % (37.0-47.0); LYMPH # 2.8 10*3/uL (1.3-4.4); LYMPH % 37.1 % (27.0-41.0); MEAN CELL VOLUME 82.7 fl (81.0-99.0); MEAN CORPUSCULAR HGB 25.8 pg (27.0-31.0); MEAN CORPUSCULAR HGB CONC 31.2 g/dl (33.0-37.0); MEAN PLATELET VOLUME 9.6 fl (9.6-12.3); MONO # 0.4 10*3/uL (0.1-1.0); MONO % 5.7 % (3.0-9.0); NEUT % 52.7 % (47.0-73.0); PLATELET COUNT AUTOMATED 379 10*3/uL (130-400); RED BLOOD COUNT 4.73 10*6/uL (4.10-5.10); RED CELL DISTRI WIDTH 15.5 % (0-14.5); WHITE BLOOD COUNT 7.6 10*3/uL (4.8-10.8)
[2020-01-05 19:07] LABS: ACT PARTIAL THROMBO TIME 22.8 SECONDS (20.0-32.1); INTERNATIONAL NORM RATIO 0.9 (2.0-3.5)
[2020-01-05 19:08] LABS: ALBUMIN 3.7 gm/dl (3.1-4.5); ALKALINE PHOSPHATASE 79 U/L (45-117); BUN 21 mg/dl (7-24); CHLORIDE 110 mmol/L (98-107); CREATININE 1.14 mg/dL (0.55-1.02); POTASSIUM 4.1 mmol/L (3.5-5.1); SGOT/AST 30 IU/L (3-35); SGPT/ALT 38 U/L (12-78); SODIUM 140 mmol/L (136-145); TOTAL PROTEIN 7.7 gm/dL (6.4-8.2)
[2020-01-05 19:10] LABS: TROPONIN I < 0.015 ng/ml (<0.045)
[2020-01-05 21:59] VITALS: BP 120/62
== END 2020-01-05 22:12 | disposition home or self-care (01) ==
LOC: ED 18:27
PROVIDERS: Emergency Medicine
DX: I49.8 Other specified cardiac arrhythmias (principal); F17.200 Nicotine dependence, unspecified, uncomplicated; Z98.890 Other specified postprocedural states; Z98.51 Tubal ligation status; Z90.710 Acquired absence of both cervix and uterus; Z79.4 Long term (current) use of insulin; Z79.899 Other long term (current) drug therapy; Z79.82 Long term (current) use of aspirin; Z91.041 Radiographic dye allergy status; Z88.6 Allergy status to analgesic agent; Z88.8 Allergy status to other drugs, medicaments and biological substances

== ENCOUNTER 2020-03-09 19:30 | Inpatient (IN) | payer OTHER ==
[~2020-03-09] VITALS: Ht 165.1 cm; Wt 93.0 kg
[2020-03-09 19:45] VITALS: BP 100/54
[2020-03-09 20:31] LABS: BASO % 0.4 % (0.0-1.0); EOS # 0.2 10*3/uL (0.0-0.4); EOS % 2.3 % (1.0-4.0); HEMATOCRIT 34.8 % (37.0-47.0); LYMPH # 2.4 10*3/uL (1.3-4.4); LYMPH % 25.3 % (27.0-41.0); MEAN CELL VOLUME 81.7 fl (81.0-99.0); MEAN CORPUSCULAR HGB 25.4 pg (27.0-31.0); MEAN PLATELET VOLUME 9.5 fl (9.6-12.3); MONO # 0.4 10*3/uL (0.1-1.0); MONO % 4.5 % (3.0-9.0); NEUT # 6.4 10*3/uL (2.3-7.9); NEUT % 67.2 % (47.0-73.0); PLATELET COUNT AUTOMATED 323 10*3/uL (130-400); RED BLOOD COUNT 4.26 10*6/uL (4.10-5.10); WHITE BLOOD COUNT 9.5 10*3/uL (4.8-10.8)
[2020-03-09 20:36] VITALS: BP 132/74
[2020-03-09 20:49] LABS: CLARITY CLEAR (CLEAR); COLOR STRAW (YELLOW)
[2020-03-09 20:50] LABS: BILIRUBIN NEGATIVE (NEGATIVE); GLUCOSE NEGATIVE (NEGATIVE); KETONE NEGATIVE (NEGATIVE)
[2020-03-09 20:52] LABS: BLOOD NEGATIVE (NEGATIVE); NITRITE NEGATIVE (NEGATIVE); SPECIFIC GRAVITY 1.015 (1.005-1.030); UROBILINOGEN 0.2 E.U./dl (0.2-1.0)
[2020-03-09 20:53] LABS: LEUKO ESTERASE 1+ (NEGATIVE)
[2020-03-09 20:53] LABS: ALBUMIN 3.4 gm/dl (3.1-4.5); ALKALINE PHOSPHATASE 63 U/L (45-117); BUN 17 mg/dl (7-24); CHLORIDE 110 mmol/L (98-107); CREATININE 1.16 mg/dL (0.55-1.02); SGOT/AST 9 IU/L (3-35); SGPT/ALT 18 U/L (12-78); SODIUM 139 mmol/L (136-145); TOTAL PROTEIN 7.1 gm/dL (6.4-8.2)
[2020-03-09 21:02] LABS: WBC 16-20 wbc/hpf (0-5)
[2020-03-09 21:03] LABS: BACTERIA 1+
[2020-03-09 21:35] VITALS: BP 144/80
[2020-03-09 21:35] LABS: TROPONIN I < 0.015 ng/ml (<0.045)
[2020-03-09 21:36] LABS: LIPASE 4465 U/L (73-393)
[2020-03-10 00:42] VITALS: BP 109/62
[2020-03-10 01:10] VITALS: BP 120/72
[2020-03-10] MEDS ORDERED: PHARMASSURE V500 MCG PO (03:33)
[2020-03-10] MEDS ORDERED: MIRTAZAPINE30 M2 PO (03:34)
[2020-03-10] MEDS ORDERED: TRULICITY1.5 MG/0.5 SC (03:42)
[2020-03-10] MEDS ORDERED: LORAZEPAM0.5 MG PO (03:43)
[2020-03-10 06:26] LABS: HEMATOCRIT 33.6 % (37.0-47.0); MEAN CELL VOLUME 83.2 fl (81.0-99.0); MEAN CORPUSCULAR HGB 25.2 pg (27.0-31.0); MEAN CORPUSCULAR HGB CONC 30.4 g/dl (33.0-37.0); PLATELET COUNT AUTOMATED 296 10*3/uL (130-400); RED BLOOD COUNT 4.04 10*6/uL (4.10-5.10); RED CELL DISTRI WIDTH 15.1 % (0-14.5); WHITE BLOOD COUNT 8.5 10*3/uL (4.8-10.8)
[2020-03-10 06:56] LABS: ALBUMIN 3.2 gm/dl (3.1-4.5); ALKALINE PHOSPHATASE 56 U/L (45-117); BUN 14 mg/dl (7-24); CHLORIDE 113 mmol/L (98-107); CHOLESTEROL 96 mg/dL (<200); CREATININE 0.97 mg/dL (0.55-1.02); HDL CHOLESTEROL 39 mg/dl (40-60); LDL CHOLESTEROL 34 mg/dL (9-159); SGOT/AST 9 IU/L (3-35); SGPT/ALT 17 U/L (12-78); SODIUM 140 mmol/L (136-145); TOTAL PROTEIN 7.1 gm/dL (6.4-8.2); TRIGLYCERIDES 115 mg/dl (<150); VLDL CHOLESTEROL 23 mg/dL (6-40)
[2020-03-10 07:04] LABS: BASOPHILS 1 % (0-1); TOTAL CELLS COUNTED 100 #CELLS
[2020-03-10 07:05] LABS: PLATELET SUFFICIENCY NORMAL (NORMAL)
[2020-03-10 08:00] VITALS: BP 120/66
[2020-03-10 12:00] VITALS: BP 118/76
[2020-03-10 16:00] VITALS: BP 118/57
[2020-03-10 20:00] VITALS: BP 118/62
[2020-03-11] VITALS: BP 103/60
[2020-03-11 07:07] LABS: BASO % 0.3 % (0.0-1.0); EOS # 0.1 10*3/uL (0.0-0.4); EOS % 2.2 % (1.0-4.0); HEMATOCRIT 33.4 % (37.0-47.0); LYMPH # 2.3 10*3/uL (1.3-4.4); LYMPH % 35.5 % (27.0-41.0); MEAN CELL VOLUME 84.1 fl (81.0-99.0); MEAN CORPUSCULAR HGB 25.4 pg (27.0-31.0); MEAN CORPUSCULAR HGB CONC 30.2 g/dl (33.0-37.0); MEAN PLATELET VOLUME 9.5 fl (9.6-12.3); MONO # 0.4 10*3/uL (0.1-1.0); MONO % 5.7 % (3.0-9.0); NEUT # 3.6 10*3/uL (2.3-7.9); NEUT % 56.1 % (47.0-73.0); PLATELET COUNT AUTOMATED 284 10*3/uL (130-400); RED BLOOD COUNT 3.97 10*6/uL (4.10-5.10); RED CELL DISTRI WIDTH 15.2 % (0-14.5); WHITE BLOOD COUNT 6.3 10*3/uL (4.8-10.8)
[2020-03-11 07:21] LABS: ALBUMIN 3.2 gm/dl (3.1-4.5); ALKALINE PHOSPHATASE 51 U/L (45-117); BUN 13 mg/dl (7-24); CHLORIDE 108 mmol/L (98-107); LIPASE 597 U/L (73-393); POTASSIUM 3.9 mmol/L (3.5-5.1); SGOT/AST 11 IU/L (3-35); SGPT/ALT 17 U/L (12-78); SODIUM 140 mmol/L (136-145)
[2020-03-11 08:00] VITALS: BP 136/66
[2020-03-11 12:00] VITALS: BP 115/58
[2020-03-11 16:00] VITALS: BP 144/97
[2020-03-11 20:00] VITALS: BP 142/100
[2020-03-12] VITALS: BP 92/68
[2020-03-12 06:38] LABS: BASO % 0.3 % (0.0-1.0); EOS # 0.2 10*3/uL (0.0-0.4); EOS % 2.6 % (1.0-4.0); HEMATOCRIT 30.2 % (37.0-47.0); LYMPH # 1.7 10*3/uL (1.3-4.4); LYMPH % 28.4 % (27.0-41.0); MEAN CELL VOLUME 81.6 fl (81.0-99.0); MEAN CORPUSCULAR HGB 25.1 pg (27.0-31.0); MEAN CORPUSCULAR HGB CONC 30.8 g/dl (33.0-37.0); MEAN PLATELET VOLUME 10.1 fl (9.6-12.3); MONO # 0.3 10*3/uL (0.1-1.0); MONO % 5.6 % (3.0-9.0); NEUT # 3.8 10*3/uL (2.3-7.9); NEUT % 62.8 % (47.0-73.0); PLATELET COUNT AUTOMATED 262 10*3/uL (130-400); WHITE BLOOD COUNT 6.1 10*3/uL (4.8-10.8)
[2020-03-12 06:47] LABS: BUN 11 mg/dl (7-24); CHLORIDE 113 mmol/L (98-107); CREATININE 0.98 mg/dL (0.55-1.02); POTASSIUM 3.8 mmol/L (3.5-5.1); SODIUM 140 mmol/L (136-145)
[2020-03-12 08:00] VITALS: BP 130/67
[2020-03-12 12:00] VITALS: BP 93/60
[2020-03-12 16:00] VITALS: BP 115/51
[2020-03-12 20:00] VITALS: BP 124/56
[2020-03-13] VITALS (8 sets, daily range): BP systolic 85–143; BP diastolic 53–72
[2020-03-13 06:16] LABS: BASO % 0.3 % (0.0-1.0); EOS # 0.2 10*3/uL (0.0-0.4); EOS % 2.7 % (1.0-4.0); HEMATOCRIT 30.6 % (37.0-47.0); LYMPH # 1.8 10*3/uL (1.3-4.4); LYMPH % 27.7 % (27.0-41.0); MEAN CELL VOLUME 84.5 fl (81.0-99.0); MEAN CORPUSCULAR HGB 26.2 pg (27.0-31.0); MONO # 0.4 10*3/uL (0.1-1.0); MONO % 5.9 % (3.0-9.0); NEUT % 63.2 % (47.0-73.0); PLATELET COUNT AUTOMATED 250 10*3/uL (130-400); RED BLOOD COUNT 3.62 10*6/uL (4.10-5.10); RED CELL DISTRI WIDTH 15.3 % (0-14.5); WHITE BLOOD COUNT 6.3 10*3/uL (4.8-10.8)
[2020-03-13 06:28] LABS: CREATININE 1.15 mg/dL (0.55-1.02); POTASSIUM 4.1 mmol/L (3.5-5.1)
[2020-03-14] VITALS: BP 111/51
[2020-03-14 07:17] LABS: BASO % 0.2 % (0.0-1.0); EOS # 0.2 10*3/uL (0.0-0.4); HEMATOCRIT 28.7 % (37.0-47.0); LYMPH # 1.4 10*3/uL (1.3-4.4); LYMPH % 31.6 % (27.0-41.0); MEAN CELL VOLUME 82.9 fl (81.0-99.0); MEAN CORPUSCULAR HGB 25.4 pg (27.0-31.0); MEAN CORPUSCULAR HGB CONC 30.7 g/dl (33.0-37.0); MONO # 0.3 10*3/uL (0.1-1.0); MONO % 6.6 % (3.0-9.0); NEUT # 2.4 10*3/uL (2.3-7.9); NEUT % 57.1 % (47.0-73.0); PLATELET COUNT AUTOMATED 268 10*3/uL (130-400); RED BLOOD COUNT 3.46 10*6/uL (4.10-5.10); RED CELL DISTRI WIDTH 15.1 % (0-14.5); WHITE BLOOD COUNT 4.3 10*3/uL (4.8-10.8)
[2020-03-14 07:33] LABS: BUN 10 mg/dl (7-24); CHLORIDE 114 mmol/L (98-107); CREATININE 1.07 mg/dL (0.55-1.02); POTASSIUM 3.6 mmol/L (3.5-5.1); SODIUM 142 mmol/L (136-145)
[2020-03-14 08:00] VITALS: BP 141/53
[2020-03-14 12:00] VITALS: BP 113/64
[2020-03-14 16:00] VITALS: BP 125/63
[2020-03-14 20:00] VITALS: BP 133/56
[2020-03-15] VITALS: BP 104/51
[2020-03-15 06:06] LABS: BASO % 0.5 % (0.0-1.0); EOS # 0.2 10*3/uL (0.0-0.4); EOS % 4.7 % (1.0-4.0); HEMATOCRIT 30.3 % (37.0-47.0); LYMPH # 1.5 10*3/uL (1.3-4.4); LYMPH % 35.6 % (27.0-41.0); MEAN CELL VOLUME 83.7 fl (81.0-99.0); MEAN CORPUSCULAR HGB 25.7 pg (27.0-31.0); MEAN CORPUSCULAR HGB CONC 30.7 g/dl (33.0-37.0); MEAN PLATELET VOLUME 9.9 fl (9.6-12.3); MONO # 0.3 10*3/uL (0.1-1.0); MONO % 6.7 % (3.0-9.0); NEUT # 2.3 10*3/uL (2.3-7.9); NEUT % 52.3 % (47.0-73.0); PLATELET COUNT AUTOMATED 251 10*3/uL (130-400); RED BLOOD COUNT 3.62 10*6/uL (4.10-5.10); RED CELL DISTRI WIDTH 15.4 % (0-14.5); WHITE BLOOD COUNT 4.3 10*3/uL (4.8-10.8)
[2020-03-15 06:23] LABS: ALBUMIN 2.7 gm/dl (3.1-4.5); ALKALINE PHOSPHATASE 62 U/L (45-117); BUN 7 mg/dl (7-24); CHLORIDE 115 mmol/L (98-107); CREATININE 1.03 mg/dL (0.55-1.02); POTASSIUM 3.7 mmol/L (3.5-5.1); SGOT/AST 19 IU/L (3-35); SGPT/ALT 33 U/L (12-78); SODIUM 143 mmol/L (136-145); TOTAL PROTEIN 6.3 gm/dL (6.4-8.2)
[2020-03-15 08:00] VITALS: BP 134/72
[2020-03-15] MEDS ORDERED: ZOFRAN4 MG PO (11:21)
[2020-03-15] MEDS ORDERED: PERCOCET 7.5-31 EACH PO (11:21)
== END 2020-03-15 12:17 | disposition home or self-care (01) | DRG 720 ==
LOC: ED 19:30 → 5E 23:42 → EDHOLD 23:42 → 5E 03-10 00:22
PROVIDERS: Emergency Medicine; Hospitalist; Student in an Organized Health Care Education/Training Program; ADMIT Student in an Organized Health Care Education/Training Program
DX: A41.9 Sepsis, unspecified organism (principal); K85.90 Acute pancreatitis without necrosis or infection, unspecified; N39.0 Urinary tract infection, site not specified; F43.10 Post-traumatic stress disorder, unspecified; N18.3 Chronic kidney disease, stage 3 (moderate); E55.9 Vitamin D deficiency, unspecified; I25.10 Atherosclerotic heart disease of native coronary artery without angina pectoris; E87.8 Other disorders of electrolyte and fluid balance, not elsewhere classified; D64.9 Anemia, unspecified; F17.210 Nicotine dependence, cigarettes, uncomplicated; K21.9 Gastro-esophageal reflux disease without esophagitis; E11.65 Type 2 diabetes mellitus with hyperglycemia; E44.0 Moderate protein-calorie malnutrition; F41.9 Anxiety disorder, unspecified; I12.9 Hypertensive chronic kidney disease with stage 1 through stage 4 chronic kidney disease, or unspecified chronic kidney disease; G40.909 Epilepsy, unspecified, not intractable, without status epilepticus; E11.22 Type 2 diabetes mellitus with diabetic chronic kidney disease; B96.20 Unspecified Escherichia coli [E. coli] as the cause of diseases classified elsewhere; K57.90 Diverticulosis of intestine, part unspecified, without perforation or abscess without bleeding; Z71.6 Tobacco abuse counseling; Z86.73 Personal history of transient ischemic attack (TIA), and cerebral infarction without residual deficits; Z68.31 Body mass index [BMI] 31.0-31.9, adult; I25.2 Old myocardial infarction; Z90.49 Acquired absence of other specified parts of digestive tract; Z90.710 Acquired absence of both cervix and uterus; Z95.5 Presence of coronary angioplasty implant and graft; Z88.8 Allergy status to other drugs, medicaments and biological substances; Z91.041 Radiographic dye allergy status; Z79.899 Other long term (current) drug therapy

== ENCOUNTER → 2020-04-14 | Outpatient (CLI) | payer OTHER ==
[~2020-04-14] MED LIST changes: +LORAZEPAM0.5 MG PO; +MIRTAZAPINE30 M2 PO; +PERCOCET 7.5-31 EACH PO; +PHARMASSURE V500 MCG PO; +TRULICITY1.5 MG/0.5 SC
[2020-04-14 08:25] LABS: BASO # 0.1 10*3/uL (0.0-0.1); BASO % 0.8 % (0.0-1.0); EOS # 0.4 10*3/uL (0.0-0.4); EOS % 4.9 % (1.0-4.0); HEMATOCRIT 39.2 % (37.0-47.0); LYMPH # 2.3 10*3/uL (1.3-4.4); LYMPH % 32.4 % (27.0-41.0); MEAN CELL VOLUME 81.3 fl (81.0-99.0); MEAN CORPUSCULAR HGB 24.9 pg (27.0-31.0); MEAN CORPUSCULAR HGB CONC 30.6 g/dl (33.0-37.0); MEAN PLATELET VOLUME 10.1 fl (9.6-12.3); MONO # 0.4 10*3/uL (0.1-1.0); MONO % 4.9 % (3.0-9.0); NEUT # 4.1 10*3/uL (2.3-7.9); NEUT % 56.9 % (47.0-73.0); PLATELET COUNT AUTOMATED 352 10*3/uL (130-400); RED BLOOD COUNT 4.82 10*6/uL (4.10-5.10); RED CELL DISTRI WIDTH 15.9 % (0-14.5); WHITE BLOOD COUNT 7.2 10*3/uL (4.8-10.8)
[2020-04-14 08:53] LABS: ALBUMIN 3.9 gm/dl (3.1-4.5); ALKALINE PHOSPHATASE 72 U/L (45-117); BILIRUBIN, DIRECT < 0.1 mg/dL (0.0-0.2); IRON 42 ug/dL (50-170); LIPASE 617 U/L (73-393); SGOT/AST 13 IU/L (3-35); SGPT/ALT 21 U/L (12-78); TOTAL IRON BINDING CAPACITY 604 ug/dl (250-450)
[2020-04-15 15:10] LABS: IGG SUBCLASS 1 524 mg/dL (248-810); IGG SUBCLASS 2 166 mg/dL (130-555); IGG SUBCLASS 3 46 mg/dL (15-102); IGG SUBCLASS 4 19 mg/dL (2-96); IMMUNOGLOBULIN G, QNT 816 mg/dL (586-1602)
[2020-04-15 17:06] LABS: ANTI-SMOOTH MUSCLE ANTIBODY 4 Units (0-19)
== END | disposition home or self-care (01) ==
LOC: LAB 06:50 → US 07:30
PROVIDERS: ATTEND Nurse Practitioner Family
DX: R10.11 Right upper quadrant pain (principal); R11.2 Nausea with vomiting, unspecified; D64.9 Anemia, unspecified; Z90.49 Acquired absence of other specified parts of digestive tract

== ENCOUNTER 2020-06-08 22:55 | Inpatient (IN) | payer OTHER ==
[~2020-06-08] VITALS: Ht 165.1 cm; Wt 94.5 kg
[2020-06-08 23:52] VITALS: BP 147/76
--- NOTE | 2020-06-09 01:30 | NUR ---
PT. RESTING IN BED WITH EYES CLOSED. RR EASY AND NON-LABORED. CALL LIGHT WITHIN REACH. WILL CONTINUE TO MONITOR.
[2020-06-09 02:11] LABS: BASO # 0.1 10*3/uL (0.0-0.1); BASO % 0.7 % (0.0-1.0); EOS # 0.2 10*3/uL (0.0-0.4); EOS % 3.3 % (1.0-4.0); HEMATOCRIT 36.9 % (37.0-47.0); LYMPH # 2.2 10*3/uL (1.3-4.4); MEAN CELL VOLUME 79.7 fl (81.0-99.0); MEAN CORPUSCULAR HGB 24.4 pg (27.0-31.0); MEAN CORPUSCULAR HGB CONC 30.6 g/dl (33.0-37.0); MEAN PLATELET VOLUME 9.6 fl (9.6-12.3); MONO # 0.4 10*3/uL (0.1-1.0); MONO % 6.2 % (3.0-9.0); NEUT # 4.1 10*3/uL (2.3-7.9); NEUT % 58.5 % (47.0-73.0); PLATELET COUNT AUTOMATED 398 10*3/uL (130-400); RED BLOOD COUNT 4.63 10*6/uL (4.10-5.10); RED CELL DISTRI WIDTH 16.6 % (0-14.5); WHITE BLOOD COUNT 7.1 10*3/uL (4.8-10.8)
--- NOTE | 2020-06-09 02:30 | NUR ---
PT. RESTING IN BED. RR EASY AND NON-LABORED. CALL LIGHT WITHIN REACH. WILL CONTINUE TO MONITOR.
[2020-06-09 02:34] LABS: ALBUMIN 3.5 gm/dl (3.1-4.5); CREATININE 1.28 mg/dL (0.55-1.02); POTASSIUM 4.2 mmol/L (3.5-5.1); TOTAL PROTEIN 7.9 gm/dL (6.4-8.2)
--- NOTE | 2020-06-09 03:30 | NUR ---
PT. RESTING IN BED IN NO DISTRESS. RR EASY AND NON-LABORED. CALL LIGHT WITHIN REACH. WILL CONTINUE TO MONITOR.
--- NOTE | 2020-06-09 04:30 | NUR ---
PT. RESTING IN BED. C/O ABDOMINAL PAIN RATED AT A 5/10.
--- NOTE | 2020-06-09 05:00 | NUR ---
GAVE PT. NORSHYANNE FOR PAIN. WILL CONTINUE TO MONITOR.
--- NOTE | 2020-06-09 05:36 | NUR ---
PT. RESTING IN BED. RR EASY AND NON-LABORED. NO DISTRESS NOTED. CALL LIGHT WITHIN REACH. WILL CONTINUE TO MONITOR.
[2020-06-09 06:38] VITALS: BP 112/57
--- NOTE | 2020-06-09 06:47 | NUR ---
PT. RESTING IN BED. RR EASY AND NON-LABORED. CALL LIGHT WITHIN REACH. WILL CONTINUE TO MONITOR.
--- NOTE | 2020-06-09 08:15 | NUR ---
PT SITTING UP IN BED, A&OX3, STATES PAIN MEDICATION HELPED, DENIES CHEST PAIN, SOB, OR DIZZINESS
[2020-06-09 08:25] VITALS: BP 154/84
--- NOTE | 2020-06-09 08:58 | NUR ---
up to rest room with assistance
[2020-06-09 11:09] VITALS: BP 138/69
--- NOTE | 2020-06-09 11:17 | NUR ---
VITALS WERE UPDATED. THE PATIENT WAS CHANGED INTO A GOWN GIVEN A COLD WASH CLOTH AND ICE PACK PER HER REQUEST. SHE WAS HELPED INTO A POSITION OF COMFORT.
--- NOTE | 2020-06-09 13:32 | NUR ---
PT C/O PF ABD PAIN RATING 8/10 PRN PAIN MEDICATION GIVEN PER ORDER
--- NOTE | 2020-06-09 13:37 | NUR ---
Time: 1304 A 55 year old FEMALE admitted to under services of CLAYTON CHASE DO. Pt. arrived via bed from ER. Chief complaint: ELEAVTED LFTS, PANCREATITIS. DINORA BRASHER
--- NOTE | 2020-06-09 14:00 | NUR ---
PT RESTING IN BED WITH EYES CLOSED, SNORING, NO COMPLAINTS
--- NOTE | 2020-06-09 14:05 | NUR ---
NOTIFIED OF CONSULT, HOLD ALL BLOOD THINNERS WILL SEE PT
[2020-06-09 16:00] VITALS: BP 146/63
--- NOTE | 2020-06-09 16:04 | NUR ---
PT C/O OF ABD ROBERT 01/07, PRN PAIN MEDICATION GIVEN PER ORDER, PT REPOSITIONED FOR COMFORT,
[2020-06-09 20:00] VITALS: BP 164/85
--- NOTE | 2020-06-09 20:32 | NUR ---
DILAUDID GIVEN PER ORDER FOR COMPLAINTS OF PAIN. WILL MONITOR
--- NOTE | 2020-06-09 21:30 | NUR ---
PER PT, DILAUDID EFFECTIVE
--- NOTE | 2020-06-09 21:54 | NUR ---
PER DR. THAKUR, STATIN AND FENOFIBRATE HELD.
--- NOTE | 2020-06-10 01:30 | NUR ---
NORCO GIVEN PER ORDER FOR COMPLAINTS OF ABD PAIN. WILL MONITOR
--- NOTE | 2020-06-10 01:58 | NUR ---
24 HR chart check completed.
--- NOTE | 2020-06-10 02:30 | NUR ---
NORCO APPEARS EFFECTIVE. PT ASLEEP
--- NOTE | 2020-06-10 03:32 | NUR ---
PT REQUESTING BSG CHECK AT THIS TIME. BSG 251. DR. TURNER NOTIFIED, NO NEW ORDERS AT THIS TIME. QUESTIONED IV FLUID ORDER, STATED HE WOULD CHECK INTO IT.
[2020-06-10 07:31] LABS: ALBUMIN 3.1 gm/dl (3.1-4.5); ALKALINE PHOSPHATASE 147 U/L (45-117); BUN 14 mg/dl (7-24); CHLORIDE 108 mmol/L (98-107); CHOLESTEROL 118 mg/dL (<200); HDL CHOLESTEROL 30 mg/dl (40-60); LDL CHOLESTEROL 47 mg/dL (9-159); LIPASE 618 U/L (73-393); SGOT/AST 223 IU/L (3-35); SGPT/ALT 333 U/L (12-78); SODIUM 139 mmol/L (136-145); TOTAL PROTEIN 6.9 gm/dL (6.4-8.2); TRIGLYCERIDES 205 mg/dl (<150); VLDL CHOLESTEROL 41 mg/dL (6-40)
[2020-06-10 07:33] LABS: BASO % 0.9 % (0.0-1.0); EOS # 0.2 10*3/uL (0.0-0.4); EOS % 4.2 % (1.0-4.0); HEMATOCRIT 34.2 % (37.0-47.0); LYMPH # 1.7 10*3/uL (1.3-4.4); LYMPH % 40.3 % (27.0-41.0); MEAN CELL VOLUME 80.7 fl (81.0-99.0); MEAN CORPUSCULAR HGB 24.1 pg (27.0-31.0); MEAN CORPUSCULAR HGB CONC 29.8 g/dl (33.0-37.0); MEAN PLATELET VOLUME 9.8 fl (9.6-12.3); MONO # 0.3 10*3/uL (0.1-1.0); NEUT % 46.4 % (47.0-73.0); PLATELET COUNT AUTOMATED 329 10*3/uL (130-400); RED BLOOD COUNT 4.24 10*6/uL (4.10-5.10); RED CELL DISTRI WIDTH 16.7 % (0-14.5); WHITE BLOOD COUNT 4.2 10*3/uL (4.8-10.8)
[2020-06-10 08:00] VITALS: BP 159/83
--- NOTE | 2020-06-10 08:44 | NUR ---
PT MEDICATED WITH PRN DILAUDID AT THIS TIME FOR C/O 9/10 MID ABDOMINAL PAIN. WILL MONITOR.
--- NOTE | 2020-06-10 08:49 | NUR ---
D5/LR RESTARTED PER ORDER.
--- NOTE | 2020-06-10 09:00 | NUR ---
Director Patient Accounting in to talk to patient. Patient states lives at home alone in [facility] with her family checking in on her. There are 0 steps in the home. Physician: Agustina Gallego Pharmacy: [facility] health services: none Patient's level of ADLs: INDEPENDENT Patient has working utilities: yes DME: none Follow-up physician's appointment after d/c: will be made by the hospitalist nurse director upon discharge Does patient want to access PORTAL?: no Discharge plan discussed with patient. She would like living will and DPOAH papers. Living will and DPOAH papers given to patient. Informed patient if she needed help completing paperwork to let CM know and she verbalized an understanding. She lives at home alone with her family checking in on her. She is independent in her ADLs and ambulation. Discussed home health care services and she declines. CM will continue to follow for any discharge planning needs. When medically stable she will be discharged to home. She states her son will provide transportation on discharge. KAMAR GARCIA
--- NOTE | 2020-06-10 09:15 | NUR ---
PRN DILAUDID SOMEWHAT EFFECTIVE PER PT.
--- NOTE | 2020-06-10 09:42 | NUR ---
PT MEDICATED WITH ONE TIME FENTATYL DOSE. PT RATES PAIN 03/09. WILL REACCESS.
--- NOTE | 2020-06-10 10:35 | NUR ---
FENTANYL DOSE EFFECTIVE PER PT.
[2020-06-10 12:00] VITALS: BP 175/68
--- NOTE | 2020-06-10 15:15 | NUR ---
PRN FENTANYL EFFECTIVE.
[2020-06-10 16:00] VITALS: BP 168/68
--- NOTE | 2020-06-10 16:01 | NUR ---
PT MEDICATED WITH PRN ZOFRAN FOR C/O NAUSEA. WILL MONITOR.
--- NOTE | 2020-06-10 16:45 | NUR ---
PRN ZOFRAN EFFECTIVE PER PT.
--- NOTE | 2020-06-10 19:10 | NUR ---
REPORT RECEIVED. PT LYING IN BED WITH EYES CLOSED. CALL LIGHT IN REACH
--- NOTE | 2020-06-10 19:57 | NUR ---
NORCO GIVEN PER ORDER FOR COMPLAINTS OF 10 PAIN. REFUSED FENTANYL. REQUESTING DILAUDID BACK. NOTIFIED DR. TURNER, STATED THAT HE WOULD SWITCH THEM BACK.
[2020-06-10 20:00] VITALS: BP 172/98
--- NOTE | 2020-06-10 20:31 | NUR ---
NORCO INEFFECTIVE PER PT. DILAUDID GIVEN AT THIS TIME FOR ABDOMINAL PAIN.
--- NOTE | 2020-06-10 21:30 | NUR ---
PER PT, DILAUDID EFFECTIVE FOR PAIN.
[2020-06-11] VITALS: BP 150/59
--- NOTE | 2020-06-11 02:09 | NUR ---
NORCO GIVEN PER ORDER FOR COMPLAINTS OF ABD PAIN.
--- NOTE | 2020-06-11 03:05 | NUR ---
NORCO APPEARS EFFECTIVE, PT ASLEEP
--- NOTE | 2020-06-11 05:00 | NUR ---
IN TO SEE PT. NO COMPLAINTS. IV FLUIDS INFUSING WITHOUT DIFFICULTY. CALL LIGHT IN REACH
[2020-06-11 07:28] LABS: ALBUMIN 3.3 gm/dl (3.1-4.5); BUN 8 mg/dl (7-24); CHLORIDE 107 mmol/L (98-107); SODIUM 138 mmol/L (136-145)
[2020-06-11 07:33] LABS: ALKALINE PHOSPHATASE 169 U/L (45-117); CREATININE 0.82 mg/dL (0.55-1.02); LIPASE 503 U/L (73-393); SGOT/AST 147 IU/L (3-35); SGPT/ALT 284 U/L (12-78); TOTAL PROTEIN 7.2 gm/dL (6.4-8.2)
[2020-06-11 08:00] VITALS: BP 156/72
--- NOTE | 2020-06-11 08:19 | NUR ---
Taken off floor for US.
--- NOTE | 2020-06-11 08:59 | NUR ---
Medicated with dilaudid iv per prn order for complaints of diffuse abdominal pain.
--- NOTE | 2020-06-11 09:00 | NUR ---
CM in to see patient. No new needs or request at this time. Discussed home health care services and she declines. CM will continue to follow for any discharge planning needs. When medically stable she will be discharged to home.
--- NOTE | 2020-06-11 09:45 | NUR ---
States that dilaudid effective.
[2020-06-11 12:00] VITALS: BP 162/71
--- NOTE | 2020-06-11 14:27 | NUR ---
Medicated with dilaudid iv per prn order for complaints of mid abdominal pain after eating. Pt states she at mashed potatoes and stuffing with gravy. States she also had a small emesis. Medicated with zofran iv per prn order. States pain is 8/10.
--- NOTE | 2020-06-11 15:20 | NUR ---
States that zofran was effective for nausea. States dilaudid only somewhat effective.
[2020-06-11 16:00] VITALS: BP 142/70
--- NOTE | 2020-06-11 16:14 | NUR ---
Medicated with dilaudid iv per prn order for complaints of abdominal pain. Pt states pain is continuing since eating lunch today.
--- NOTE | 2020-06-11 16:46 | NUR ---
Notified Dr. Mccann that pt was having a lot of pain after eating soft diet for lunch. Notified that dilaudid was given but pt diet was advanced today for lunch.
--- NOTE | 2020-06-11 17:00 | NUR ---
States that medication was effective for pain.
[2020-06-11 20:00] VITALS: BP 160/84
--- NOTE | 2020-06-11 20:56 | NUR ---
PT WRITHING IN PAIN AND C/O OF NAUSEA AND VOMOTTING. PT REQUEST PRN PAIN AND NAUSEA PAIN. PRN MEDICATION GIVEN WILL REASSESS.
--- NOTE | 2020-06-11 22:53 | NUR ---
PT REQUEST PAIN MEDICATION FOR ABDOMINAL PAIN 03/09. PAIN MEDICATION PROVIDED. WILL REASSESS.
[2020-06-12] VITALS: BP 152/69
[2020-06-12 07:42] LABS: ALBUMIN 3.2 gm/dl (3.1-4.5); ALKALINE PHOSPHATASE 199 U/L (45-117); BUN 9 mg/dl (7-24); CHLORIDE 103 mmol/L (98-107); CREATININE 1.05 mg/dL (0.55-1.02); POTASSIUM 3.8 mmol/L (3.5-5.1); SGOT/AST 137 IU/L (3-35); SGPT/ALT 270 U/L (12-78); SODIUM 135 mmol/L (136-145); TOTAL PROTEIN 7.4 gm/dL (6.4-8.2)
[2020-06-12 08:00] VITALS: BP 168/76
--- NOTE | 2020-06-12 08:32 | NUR ---
Medicated with norco per prn order for complaints of mid upper abdominal pain. States pain is 7/10.
--- NOTE | 2020-06-12 09:18 | NUR ---
Pt states that norco helped to relieve pain somewhat.
--- NOTE | 2020-06-12 10:38 | NUR ---
Dr. Daniels notified of US abdomen results. States to keep pt npo. States that he gave order to hold blood thinners days ago. Notified that pt received asa, plavix, and lovenox today and yesterday. Notified that pt was also started on diet yesterday.
--- NOTE | 2020-06-12 11:07 | NUR ---
Spoke with pt regarding order for NPO.
--- NOTE | 2020-06-12 11:32 | NUR ---
Notified nursing mri supervisor that pt did not have ordered entered for blood thinners.
[2020-06-12 12:00] VITALS: BP 163/62
--- NOTE | 2020-06-12 14:21 | NUR ---
Medicated with dilaudid iv per prn order for complaints of pain to mid abdomen. States pain is 7/10.
--- NOTE | 2020-06-12 15:00 | NUR ---
States dilaudid was effective for pain.
[2020-06-12 16:00] VITALS: BP 174/71
--- NOTE | 2020-06-12 17:01 | NUR ---
Medicated with dilaudid iv per prn order for complaints of abdominal pain. States pain is 9/10 and located mid abdomen. Denies nausea.
--- NOTE | 2020-06-12 17:30 | NUR ---
States that dilaudid helped pain.
[2020-06-13] VITALS: BP 155/62
[2020-06-13 06:04] LABS: BASO % 0.8 % (0.0-1.0); EOS # 0.2 10*3/uL (0.0-0.4); EOS % 3.9 % (1.0-4.0); HEMATOCRIT 35.8 % (37.0-47.0); LYMPH # 1.3 10*3/uL (1.3-4.4); LYMPH % 26.9 % (27.0-41.0); MEAN CELL VOLUME 80.4 fl (81.0-99.0); MEAN CORPUSCULAR HGB 24.3 pg (27.0-31.0); MEAN CORPUSCULAR HGB CONC 30.2 g/dl (33.0-37.0); MEAN PLATELET VOLUME 10.6 fl (9.6-12.3); MONO # 0.3 10*3/uL (0.1-1.0); NEUT % 61.2 % (47.0-73.0); PLATELET COUNT AUTOMATED 323 10*3/uL (130-400); RED BLOOD COUNT 4.45 10*6/uL (4.10-5.10); RED CELL DISTRI WIDTH 16.9 % (0-14.5); WHITE BLOOD COUNT 4.8 10*3/uL (4.8-10.8)
[2020-06-13 06:32] LABS: ALBUMIN 3.1 gm/dl (3.1-4.5); BUN 8 mg/dl (7-24); CHLORIDE 106 mmol/L (98-107); POTASSIUM 3.6 mmol/L (3.5-5.1); SODIUM 138 mmol/L (136-145)
[2020-06-13 06:35] LABS: ALKALINE PHOSPHATASE 219 U/L (45-117); CREATININE 0.91 mg/dL (0.55-1.02); SGOT/AST 133 IU/L (3-35); SGPT/ALT 237 U/L (12-78); TOTAL PROTEIN 7.2 gm/dL (6.4-8.2)
--- NOTE | 2020-06-13 07:31 | NUR ---
DR. THAKUR CALLED WITH [facility] RESULT. NO NEW ORDERS RECIEVED OVER THE PHONE AT THIS TIME.
[2020-06-13 08:00] VITALS: BP 173/75
--- NOTE | 2020-06-13 11:00 | NUR ---
VALDEZ IN TO SEE PT, PER EQUIPMENT NEEDED FOR ERCP IS DOWN , PROCEDURE ON HOLD AT THIS TIME, VALDEZ SPOKE OF A POSSIBLE TRANSFER TO ANOTHER FACILITY BUT NO DEFINIT DECISIONS OF RIGHT NOW
--- NOTE | 2020-06-13 11:39 | NUR ---
PT C/O OF LEFT UPPER ABD PAIN PAIN RATING 6/10 PRN DIALAUDID GIVEN PER ORDER
[2020-06-13 12:00] VITALS: BP 159/71
--- NOTE | 2020-06-13 12:20 | NUR ---
PER PT DIALAUDID WAS EFFECTIVE FOR SOME OF THE PAIN PAIN RATING 4/10
--- NOTE | 2020-06-13 12:53 | NUR ---
PT C/O OF ABD PAIN 12/07 PRN NOROCO GIVEN PER ORDER
--- NOTE | 2020-06-13 13:30 | NUR ---
PER PT NORCO WAS EFFECTIVE FOR PAIN
--- NOTE | 2020-06-13 14:50 | NUR ---
PT C/O OF MID EPIGASTRIC PAIN RATING 6/10 PRN DILAUDID GIVEN PER ORDER
[2020-06-13 16:00] VITALS: BP 158/65
--- NOTE | 2020-06-13 16:37 | NUR ---
PRN NORCO AND BENADRYL GIVEN PER ORDER FOR C/O OF PAIN AND ITCHYING PAIN 12/07
--- NOTE | 2020-06-13 17:30 | NUR ---
RESIDENT NOTIFIED THAT PT STATED THAT CURRENT PAIN MEDICATIO REGIMINE IS INEFFECTIVE FOR PAIN, PER PT " I DONT FEEL LIKE ITS WORKING ANYMORE" PT INFORMED SHE COULD HAVE HER DILAUDID PT REFUSED STATING ITS NOT HELPING.
[2020-06-13 20:00] VITALS: BP 161/78; BP 163/88
--- NOTE | 2020-06-13 20:51 | NUR ---
ASSUMED CARE OF PATIENT. PATIENT IS AAOX3 RESTING IN BED WITH EASY AND REGULAR RESPERS ON ROOM AIR. ASSESSMENT IS COMPLETE WITH NO S/S OF DISTRESS NOTED AT THIS TIME. PATIENT IS CRYING AND TEARFUL STATING STOMACH HURTS RATING A 10/10. PRN DILAUDID AND NORCO GIVEN AT THIS TIME. PATIENT TOLERATED WELL. BED IS LOW, LOCKED, AND CALL LIGHT IS WITHIN REACH. WILL CONTINUE TO MONITOR, SEE INTERVENTIONS.
--- NOTE | 2020-06-13 21:30 | NUR ---
PRN PAIN MEDICATIONS EFFECTIVE PER PATIENT. CALL LIGHT IS WITHIN REACH, WILL CONTINUE TO MONITOR.
[2020-06-14] VITALS: BP 156/71
--- NOTE | 2020-06-14 01:32 | NUR ---
CHART CHECK COMPLETE.
[2020-06-14 07:02] LABS: ALBUMIN 2.9 gm/dl (3.1-4.5); ALKALINE PHOSPHATASE 264 U/L (45-117); BUN 9 mg/dl (7-24); CHLORIDE 103 mmol/L (98-107); CREATININE 0.81 mg/dL (0.55-1.02); POTASSIUM 3.7 mmol/L (3.5-5.1); SGOT/AST 158 IU/L (3-35); SGPT/ALT 232 U/L (12-78); SODIUM 136 mmol/L (136-145); TOTAL PROTEIN 6.9 gm/dL (6.4-8.2)
[2020-06-14 08:00] VITALS: BP 158/70
--- NOTE | 2020-06-14 08:28 | NUR ---
PATIENT MEDICATED WITH DILAUDID IV AT THIS TIME FOR 8/10 PAIN IN EPIGASTRIC AREA RADIATING INTO BACK. WILL MONITOR FOR EFFECTIVENESS.
--- NOTE | 2020-06-14 09:28 | NUR ---
PER PATIENT, DILAUDID HAS BEEN EFFECTIVE. PT MORE RELAXED AT THIS TIME. CALL LIGHT IN REACH.
--- NOTE | 2020-06-14 11:49 | NUR ---
PT MEDICATED WITH DILAUDID FOR 9/10 ABD PAIN. WILL MONITOR FOR EFFECTIVENESS.
[2020-06-14 12:00] VITALS: BP 151/76
--- NOTE | 2020-06-14 12:49 | NUR ---
PER PATIENT, PAIN MEDICATION EFFECTIVE. CALL LIGHT IN REACH
--- NOTE | 2020-06-14 15:27 | NUR ---
PT C/O 10/10 PAIN IN ABD AT THIS TIME AND MEDICATED WITH IV DILAUDID PER ORDER. WILL MONITOR FOR EFFECTIVENESS.
--- NOTE | 2020-06-14 15:55 | NUR ---
PT C/O NAUSEA AT THIS TIME AND MEDICATED WITH IV ZOFRAN PER ORDER. WILL MONITOR.
[2020-06-14 16:00] VITALS: BP 159/65
--- NOTE | 2020-06-14 16:27 | NUR ---
PER PATIENT, PRN MEDICATION HAS BEEN EFFECTIVE. RESTING.
--- NOTE | 2020-06-14 16:55 | NUR ---
PER PATIENT, NAUSEA HAS IMPROVED AFTER ZOFRAN. CALL LIGHT IN REACH.
--- NOTE | 2020-06-14 18:25 | NUR ---
PATIENT TRANSFERRED VIA [facility] TO [facility] AT THIS TIME. IV REMAINS PATENT & INTACT TO RIGHT ARM. PATIENT MEDICATED WITH IV DILAUDID PRIOR TO DISCHARGE AND UPON REQUEST FOR 10/10 UPPER ABD PAIN. REPORT GIVEN TO RECEIVING NURSE. TAKEN OFF FLOOR VIA STRETCHER.
== END 2020-06-14 19:00 | disposition short-term general hospital (02) | DRG 282 ==
LOC: ED 22:55 → 4E 06-09 03:05 → EDHOLD 06-09 03:05 → 4E 06-09 12:38
PROVIDERS: Internal Medicine; Student in an Organized Health Care Education/Training Program; ADMIT Internal Medicine; ATTEND Internal Medicine
DX: K85.90 Acute pancreatitis without necrosis or infection, unspecified (principal); N17.0 Acute kidney failure with tubular necrosis; N18.30 Chronic kidney disease, stage 3 unspecified; R74.01 Elevation of levels of liver transaminase levels; D50.9 Iron deficiency anemia, unspecified; K21.9 Gastro-esophageal reflux disease without esophagitis; F43.10 Post-traumatic stress disorder, unspecified; I25.10 Atherosclerotic heart disease of native coronary artery without angina pectoris; M19.90 Unspecified osteoarthritis, unspecified site; E55.9 Vitamin D deficiency, unspecified; E78.5 Hyperlipidemia, unspecified; F41.9 Anxiety disorder, unspecified; E11.22 Type 2 diabetes mellitus with diabetic chronic kidney disease; H40.9 Unspecified glaucoma; I25.2 Old myocardial infarction; G43.909 Migraine, unspecified, not intractable, without status migrainosus; E11.65 Type 2 diabetes mellitus with hyperglycemia; I12.9 Hypertensive chronic kidney disease with stage 1 through stage 4 chronic kidney disease, or unspecified chronic kidney disease; G40.909 Epilepsy, unspecified, not intractable, without status epilepticus; E44.1 Mild protein-calorie malnutrition; K80.70 Calculus of gallbladder and bile duct without cholecystitis without obstruction; Z90.49 Acquired absence of other specified parts of digestive tract; Z90.710 Acquired absence of both cervix and uterus; Z79.4 Long term (current) use of insulin; Z88.8 Allergy status to other drugs, medicaments and biological substances; Z91.041 Radiographic dye allergy status; Z82.49 Family history of ischemic heart disease and other diseases of the circulatory system; Z83.3 Family history of diabetes mellitus; Z82.61 Family history of arthritis; Z68.34 Body mass index [BMI] 34.0-34.9, adult

== ENCOUNTER 2020-07-01 12:25 | Emergency (ER) | payer OTHER ==
[~2020-07-01] VITALS: Wt 88.5 kg
[2020-07-01 12:57] LABS: BASO # 0.1 10*3/uL (0.0-0.1); BASO % 0.6 % (0.0-1.0); EOS # 0.1 10*3/uL (0.0-0.4); EOS % 1.2 % (1.0-4.0); HEMATOCRIT 35.5 % (37.0-47.0); LYMPH # 2.3 10*3/uL (1.3-4.4); LYMPH % 18.8 % (27.0-41.0); MEAN CELL VOLUME 82.6 fl (81.0-99.0); MEAN CORPUSCULAR HGB 25.3 pg (27.0-31.0); MEAN CORPUSCULAR HGB CONC 30.7 g/dl (33.0-37.0); MONO # 0.6 10*3/uL (0.1-1.0); MONO % 4.5 % (3.0-9.0); NEUT % 74.1 % (47.0-73.0); NUCLEATED RED BLOOD CELL 0.3 % (0.0-0.0); PLATELET COUNT AUTOMATED 669 10*3/uL (130-400); RED CELL DISTRI WIDTH 20.1 % (0-14.5); WHITE BLOOD COUNT 12.1 10*3/uL (4.8-10.8)
[2020-07-01 13:09] LABS: ACT PARTIAL THROMBO TIME 20.5 SECONDS (20.0-32.1)
[2020-07-01 13:14] LABS: ALBUMIN 3.1 gm/dl (3.1-4.5); ALKALINE PHOSPHATASE 230 U/L (45-117); BUN 17 mg/dl (7-24); CHLORIDE 101 mmol/L (98-107); CREATININE 1.04 mg/dL (0.55-1.02); SGOT/AST 23 IU/L (3-35); SGPT/ALT 41 U/L (12-78); SODIUM 135 mmol/L (136-145); TOTAL PROTEIN 8.5 gm/dL (6.4-8.2)
[2020-07-01 13:15] LABS: TROPONIN I < 0.015 ng/ml (<0.045)
[2020-07-01 21:10] VITALS: BP 127/70
== END 2020-07-02 01:37 | disposition short-term general hospital (02) ==
LOC: ED 12:25
PROVIDERS: Emergency Medicine
DX: I21.4 Non-ST elevation (NSTEMI) myocardial infarction (principal); G89.18 Other acute postprocedural pain; I25.10 Atherosclerotic heart disease of native coronary artery without angina pectoris; K21.9 Gastro-esophageal reflux disease without esophagitis; I12.9 Hypertensive chronic kidney disease with stage 1 through stage 4 chronic kidney disease, or unspecified chronic kidney disease; E11.22 Type 2 diabetes mellitus with diabetic chronic kidney disease; N18.30 Chronic kidney disease, stage 3 unspecified; E78.5 Hyperlipidemia, unspecified; Z79.4 Long term (current) use of insulin; Z91.041 Radiographic dye allergy status; Z79.82 Long term (current) use of aspirin; Z79.899 Other long term (current) drug therapy

== ENCOUNTER 2020-08-03 19:46 | Emergency (ER) | payer OTHER ==
[2020-08-03 22:29] LABS: BASO % 0.6 % (0.0-1.0); EOS # 0.2 10*3/uL (0.0-0.4); EOS % 2.7 % (1.0-4.0); LYMPH # 2.1 10*3/uL (1.3-4.4); LYMPH % 31.8 % (27.0-41.0); MEAN CELL VOLUME 78.9 fl (81.0-99.0); MEAN CORPUSCULAR HGB 23.4 pg (27.0-31.0); MEAN CORPUSCULAR HGB CONC 29.7 g/dl (33.0-37.0); MEAN PLATELET VOLUME 9.6 fl (9.6-12.3); MONO # 0.5 10*3/uL (0.1-1.0); MONO % 7.6 % (3.0-9.0); NEUT # 3.8 10*3/uL (2.3-7.9); PLATELET COUNT AUTOMATED 419 10*3/uL (130-400); RED BLOOD COUNT 4.18 10*6/uL (4.10-5.10); WHITE BLOOD COUNT 6.6 10*3/uL (4.8-10.8)
[2020-08-03 22:46] LABS: ALBUMIN 3.2 gm/dl (3.1-4.5); ALKALINE PHOSPHATASE 88 U/L (45-117); BUN 15 mg/dl (7-24); CHLORIDE 106 mmol/L (98-107); CREATININE 1.01 mg/dL (0.55-1.02); LIPASE 83 U/L (73-393); POTASSIUM 3.8 mmol/L (3.5-5.1); SGOT/AST 12 IU/L (3-35); SGPT/ALT 19 U/L (12-78); SODIUM 138 mmol/L (136-145); TOTAL PROTEIN 7.3 gm/dL (6.4-8.2)
[2020-08-04 00:24] LABS: BILIRUBIN Negative (Negative); BLOOD Negative (Negative); CLARITY Cloudy (Clear); COLOR Yellow (Yellow); GLUCOSE Negative (Negative); KETONE Trace (Negative); LEUKO ESTERASE 1+ (Negative); NITRITE Positive (Negative); SPECIFIC GRAVITY 1.025 (1.001-1.030)
[2020-08-04 00:34] LABS: BACTERIA 4+
[2020-08-04 15:09] VITALS: BP 126/61
== END 2020-08-04 18:33 | disposition short-term general hospital (02) ==
LOC: ED 19:46
PROVIDERS: Emergency Medicine
DX: N39.0 Urinary tract infection, site not specified (principal); E87.2 Acidosis; R11.0 Nausea; I10 Essential (primary) hypertension; E11.9 Type 2 diabetes mellitus without complications; F41.9 Anxiety disorder, unspecified; I25.2 Old myocardial infarction; Z91.041 Radiographic dye allergy status; Z88.8 Allergy status to other drugs, medicaments and biological substances; Z79.899 Other long term (current) drug therapy; Z79.82 Long term (current) use of aspirin; Z90.711 Acquired absence of uterus with remaining cervical stump; Z90.49 Acquired absence of other specified parts of digestive tract; Z98.61 Coronary angioplasty status; Z98.890 Other specified postprocedural states; Z98.51 Tubal ligation status; Z87.891 Personal history of nicotine dependence; Z86.73 Personal history of transient ischemic attack (TIA), and cerebral infarction without residual deficits

== ENCOUNTER → 2020-09-16 | Outpatient (CLI) | payer OTHER ==
[2020-09-16 08:21] LABS: BASO % 1.1 % (0.0-1.0); EOS # 0.1 10*3/uL (0.0-0.4); EOS % 3.6 % (1.0-4.0); HEMATOCRIT 32.2 % (37.0-47.0); LYMPH % 34.5 % (27.0-41.0); MEAN CELL VOLUME 76.5 fl (81.0-99.0); MEAN CORPUSCULAR HGB 22.3 pg (27.0-31.0); MEAN CORPUSCULAR HGB CONC 29.2 g/dl (33.0-37.0); MEAN PLATELET VOLUME 9.7 fl (9.6-12.3); MONO # 0.1 10*3/uL (0.1-1.0); MONO % 4.7 % (3.0-9.0); NEUT # 1.5 10*3/uL (2.3-7.9); NEUT % 55.7 % (47.0-73.0); PLATELET COUNT AUTOMATED 334 10*3/uL (130-400); RED BLOOD COUNT 4.21 10*6/uL (4.10-5.10); RED CELL DISTRI WIDTH 15.9 % (0-14.5); WHITE BLOOD COUNT 2.8 10*3/uL (4.8-10.8)
[2020-09-16 08:53] LABS: ALBUMIN 3.2 gm/dl (3.1-4.5); ALKALINE PHOSPHATASE 82 U/L (45-117); BUN 12 mg/dl (7-24); CHLORIDE 108 mmol/L (98-107); CREATININE 1.03 mg/dL (0.55-1.02); POTASSIUM 3.7 mmol/L (3.5-5.1); SGOT/AST 18 IU/L (3-35); SGPT/ALT 24 U/L (12-78); SODIUM 140 mmol/L (136-145); TOTAL PROTEIN 7.5 gm/dL (6.4-8.2)
== END | disposition home or self-care (01) ==
LOC: LAB 07:40
PROVIDERS: ATTEND Internal Medicine Hematology & Oncology
DX: C25.9 Malignant neoplasm of pancreas, unspecified (principal)

== ENCOUNTER → 2020-10-06 | Outpatient (CLI) | payer OTHER ==
[2020-10-06 08:40] LABS: BASO # 0.1 10*3/uL (0.0-0.1); BASO % 1.7 % (0.0-1.0); EOS # 0.2 10*3/uL (0.0-0.4); EOS % 3.6 % (1.0-4.0); HEMATOCRIT 39.3 % (37.0-47.0); LYMPH # 1.8 10*3/uL (1.3-4.4); LYMPH % 43.1 % (27.0-41.0); MEAN CELL VOLUME 82.9 fl (81.0-99.0); MEAN CORPUSCULAR HGB 25.1 pg (27.0-31.0); MEAN CORPUSCULAR HGB CONC 30.3 g/dl (33.0-37.0); MEAN PLATELET VOLUME 9.9 fl (9.6-12.3); MONO # 0.4 10*3/uL (0.1-1.0); MONO % 9.5 % (3.0-9.0); NEUT # 1.8 10*3/uL (2.3-7.9); NEUT % 41.6 % (47.0-73.0); PLATELET COUNT AUTOMATED 451 10*3/uL (130-400); RED BLOOD COUNT 4.74 10*6/uL (4.10-5.10); RED CELL DISTRI WIDTH 23.9 % (0-14.5); WHITE BLOOD COUNT 4.2 10*3/uL (4.8-10.8)
[2020-10-06 08:59] LABS: ALBUMIN 3.2 gm/dl (3.1-4.5); ALKALINE PHOSPHATASE 109 U/L (45-117); BUN 12 mg/dl (7-24); CHLORIDE 108 mmol/L (98-107); CREATININE 0.97 mg/dL (0.55-1.02); POTASSIUM 4.1 mmol/L (3.5-5.1); SGOT/AST 20 IU/L (3-35); SGPT/ALT 29 U/L (12-78); SODIUM 138 mmol/L (136-145)
== END | disposition home or self-care (01) ==
LOC: LAB 07:57
PROVIDERS: ATTEND Internal Medicine Hematology & Oncology
DX: C25.9 Malignant neoplasm of pancreas, unspecified (principal)

== ENCOUNTER → 2020-10-13 | Outpatient (CLI) | payer OTHER ==
[2020-10-13 09:02] LABS: BASO # 0.1 10*3/uL (0.0-0.1); EOS # 0.1 10*3/uL (0.0-0.4); EOS % 1.7 % (1.0-4.0); HEMATOCRIT 40.3 % (37.0-47.0); LYMPH # 1.8 10*3/uL (1.3-4.4); MEAN CELL VOLUME 82.8 fl (81.0-99.0); MEAN CORPUSCULAR HGB 25.5 pg (27.0-31.0); MEAN CORPUSCULAR HGB CONC 30.8 g/dl (33.0-37.0); MEAN PLATELET VOLUME 10.1 fl (9.6-12.3); MONO # 0.2 10*3/uL (0.1-1.0); MONO % 5.7 % (3.0-9.0); NEUT # 1.3 10*3/uL (2.3-7.9); NEUT % 38.3 % (47.0-73.0); NUCLEATED RED BLOOD CELL 0.6 % (0.0-0.0); PLATELET COUNT AUTOMATED 262 10*3/uL (130-400); RED BLOOD COUNT 4.87 10*6/uL (4.10-5.10); WHITE BLOOD COUNT 3.5 10*3/uL (4.8-10.8)
[2020-10-13 09:34] LABS: ALBUMIN 3.6 gm/dl (3.1-4.5); ALKALINE PHOSPHATASE 113 U/L (45-117); BUN 13 mg/dl (7-24); CHLORIDE 109 mmol/L (98-107); CREATININE 0.83 mg/dL (0.55-1.02); POTASSIUM 3.7 mmol/L (3.5-5.1); SGOT/AST 40 IU/L (3-35); SGPT/ALT 58 U/L (12-78); SODIUM 140 mmol/L (136-145); TOTAL PROTEIN 7.7 gm/dL (6.4-8.2)
== END | disposition home or self-care (01) ==
LOC: LAB 08:24
PROVIDERS: ATTEND Internal Medicine Hematology & Oncology
DX: C25.9 Malignant neoplasm of pancreas, unspecified (principal)

== ENCOUNTER 2020-10-19 15:00 | Emergency (ER) | payer OTHER ==
[~2020-10-19] VITALS: Ht 165.1 cm; Wt 82.6 kg
[2020-10-19 15:39] LABS: BASO % 0.6 % (0.0-1.0); EOS # 0.1 10*3/uL (0.0-0.4); EOS % 1.3 % (1.0-4.0); HEMATOCRIT 33.5 % (37.0-47.0); LYMPH # 1.1 10*3/uL (1.3-4.4); LYMPH % 23.3 % (27.0-41.0); MEAN CELL VOLUME 79.8 fl (81.0-99.0); MEAN CORPUSCULAR HGB 26.2 pg (27.0-31.0); MEAN CORPUSCULAR HGB CONC 32.8 g/dl (33.0-37.0); MEAN PLATELET VOLUME 9.6 fl (9.6-12.3); MONO # 0.1 10*3/uL (0.1-1.0); MONO % 1.9 % (3.0-9.0); NEUT # 3.4 10*3/uL (2.3-7.9); NEUT % 72.5 % (47.0-73.0); PLATELET COUNT AUTOMATED 159 10*3/uL (130-400); RED CELL DISTRI WIDTH 22.6 % (0-14.5); WHITE BLOOD COUNT 4.7 10*3/uL (4.8-10.8)
[2020-10-19 15:53] VITALS: BP 121/70
[2020-10-19 15:56] LABS: ALBUMIN 3.5 gm/dl (3.1-4.5); ALKALINE PHOSPHATASE 104 U/L (45-117); BUN 18 mg/dl (7-24); CHLORIDE 101 mmol/L (98-107); CREATININE 1.14 mg/dL (0.55-1.02); POTASSIUM 4.5 mmol/L (3.5-5.1); SGOT/AST 32 IU/L (3-35); SGPT/ALT 63 U/L (12-78); SODIUM 133 mmol/L (136-145); TOTAL PROTEIN 7.1 gm/dL (6.4-8.2)
[2020-10-19 15:59] LABS: TROPONIN I < 0.015 ng/ml (<0.045)
== END 2020-10-19 17:50 | disposition home or self-care (01) ==
LOC: ED 15:00
PROVIDERS: Emergency Medicine
DX: R55 Syncope and collapse (principal); R73.9 Hyperglycemia, unspecified; F17.200 Nicotine dependence, unspecified, uncomplicated; Z98.890 Other specified postprocedural states; Z90.710 Acquired absence of both cervix and uterus; Z98.51 Tubal ligation status; Z90.49 Acquired absence of other specified parts of digestive tract; Z79.899 Other long term (current) drug therapy; Z79.4 Long term (current) use of insulin; Z91.041 Radiographic dye allergy status; Z88.8 Allergy status to other drugs, medicaments and biological substances

== ENCOUNTER → 2020-10-20 | Outpatient (CLI) | payer OTHER ==
[2020-10-20 10:40] LABS: BASO % 0.8 % (0.0-1.0); EOS % 1.1 % (1.0-4.0); HEMATOCRIT 34.3 % (37.0-47.0); LYMPH % 39.5 % (27.0-41.0); MEAN CELL VOLUME 80.5 fl (81.0-99.0); MEAN CORPUSCULAR HGB 25.6 pg (27.0-31.0); MEAN CORPUSCULAR HGB CONC 31.8 g/dl (33.0-37.0); MEAN PLATELET VOLUME 9.6 fl (9.6-12.3); MONO # 0.1 10*3/uL (0.1-1.0); MONO % 4.2 % (3.0-9.0); NEUT # 1.4 10*3/uL (2.3-7.9); NEUT % 53.6 % (47.0-73.0); PLATELET COUNT AUTOMATED 134 10*3/uL (130-400); RED BLOOD COUNT 4.26 10*6/uL (4.10-5.10); RED CELL DISTRI WIDTH 22.6 % (0-14.5); WHITE BLOOD COUNT 2.6 10*3/uL (4.8-10.8)
[2020-10-20 11:09] LABS: ALBUMIN 3.3 gm/dl (3.1-4.5); ALKALINE PHOSPHATASE 107 U/L (45-117); BUN 11 mg/dl (7-24); CHLORIDE 108 mmol/L (98-107); CREATININE 0.77 mg/dL (0.55-1.02); POTASSIUM 4.1 mmol/L (3.5-5.1); SGOT/AST 37 IU/L (3-35); SGPT/ALT 55 U/L (12-78); SODIUM 140 mmol/L (136-145); TOTAL PROTEIN 7.1 gm/dL (6.4-8.2)
== END | disposition home or self-care (01) ==
LOC: LAB 09:49
PROVIDERS: ATTEND Internal Medicine Hematology & Oncology
DX: C25.9 Malignant neoplasm of pancreas, unspecified (principal)

== ENCOUNTER → 2020-11-03 | Outpatient (CLI) | payer OTHER ==
[2020-11-03 08:42] LABS: BASO % 0.8 % (0.0-1.0); EOS # 0.2 10*3/uL (0.0-0.4); EOS % 3.4 % (1.0-4.0); HEMATOCRIT 37.4 % (37.0-47.0); LYMPH # 1.9 10*3/uL (1.3-4.4); LYMPH % 40.1 % (27.0-41.0); MEAN CELL VOLUME 86.8 fl (81.0-99.0); MEAN CORPUSCULAR HGB 27.1 pg (27.0-31.0); MEAN CORPUSCULAR HGB CONC 31.3 g/dl (33.0-37.0); MEAN PLATELET VOLUME 9.9 fl (9.6-12.3); MONO # 0.5 10*3/uL (0.1-1.0); MONO % 10.3 % (3.0-9.0); NEUT # 2.1 10*3/uL (2.3-7.9); PLATELET COUNT AUTOMATED 321 10*3/uL (130-400); RED BLOOD COUNT 4.31 10*6/uL (4.10-5.10); RED CELL DISTRI WIDTH 26.2 % (0-14.5); WHITE BLOOD COUNT 4.8 10*3/uL (4.8-10.8)
[2020-11-03 09:16] LABS: ALBUMIN 3.3 gm/dl (3.1-4.5); ALKALINE PHOSPHATASE 89 U/L (45-117); BUN 9 mg/dl (7-24); CHLORIDE 108 mmol/L (98-107); CREATININE 0.79 mg/dL (0.55-1.02); POTASSIUM 3.9 mmol/L (3.5-5.1); SGOT/AST 39 IU/L (3-35); SGPT/ALT 50 U/L (12-78); SODIUM 140 mmol/L (136-145)
== END | disposition home or self-care (01) ==
LOC: LAB 07:43
PROVIDERS: ATTEND Internal Medicine Hematology & Oncology
DX: C25.9 Malignant neoplasm of pancreas, unspecified (principal)

== ENCOUNTER → 2020-11-10 | Outpatient (CLI) | payer OTHER ==
[2020-11-10 09:11] LABS: ALBUMIN 3.2 gm/dl (3.1-4.5); ALKALINE PHOSPHATASE 105 U/L (45-117); BUN 8 mg/dl (7-24); CHLORIDE 106 mmol/L (98-107); CREATININE 0.75 mg/dL (0.55-1.02); POTASSIUM 3.6 mmol/L (3.5-5.1); SGOT/AST 71 IU/L (3-35); SGPT/ALT 72 U/L (12-78); SODIUM 137 mmol/L (136-145); TOTAL PROTEIN 7.2 gm/dL (6.4-8.2)
[2020-11-10 09:11] LABS: BASO # 0.1 10*3/uL (0.0-0.1); BASO % 1.8 % (0.0-1.0); EOS % 1.4 % (1.0-4.0); HEMATOCRIT 37.8 % (37.0-47.0); LYMPH # 1.3 10*3/uL (1.3-4.4); MEAN CELL VOLUME 86.1 fl (81.0-99.0); MEAN CORPUSCULAR HGB 28.2 pg (27.0-31.0); MEAN CORPUSCULAR HGB CONC 32.8 g/dl (33.0-37.0); MEAN PLATELET VOLUME 9.4 fl (9.6-12.3); MONO # 0.3 10*3/uL (0.1-1.0); MONO % 8.9 % (3.0-9.0); NEUT # 1.1 10*3/uL (2.3-7.9); NEUT % 39.8 % (47.0-73.0); PLATELET COUNT AUTOMATED 402 10*3/uL (130-400); RED BLOOD COUNT 4.39 10*6/uL (4.10-5.10); RED CELL DISTRI WIDTH 24.5 % (0-14.5); WHITE BLOOD COUNT 2.8 10*3/uL (4.8-10.8)
== END | disposition home or self-care (01) ==
LOC: LAB 08:37
PROVIDERS: ATTEND Internal Medicine Hematology & Oncology
DX: C25.9 Malignant neoplasm of pancreas, unspecified (principal)

== ENCOUNTER → 2020-11-18 | Outpatient (CLI) | payer OTHER ==
[2020-11-18 08:35] LABS: HEMATOCRIT 36.2 % (37.0-47.0); MEAN CELL VOLUME 88.7 fl (81.0-99.0); MEAN CORPUSCULAR HGB 29.4 pg (27.0-31.0); MEAN CORPUSCULAR HGB CONC 33.1 g/dl (33.0-37.0); MEAN PLATELET VOLUME 9.4 fl (9.6-12.3); PLATELET COUNT AUTOMATED 146 10*3/uL (130-400); RED BLOOD COUNT 4.08 10*6/uL (4.10-5.10)
[2020-11-18 08:52] LABS: BURR CELLS FEW; OVALOCYTES FEW; PLATELET SUFFICIENCY NORMAL (NORMAL); TOTAL CELLS COUNTED 100 #CELLS
[2020-11-18 09:06] LABS: ALBUMIN 3.3 gm/dl (3.1-4.5); ALKALINE PHOSPHATASE 122 U/L (45-117); BUN 10 mg/dl (7-24); CHLORIDE 108 mmol/L (98-107); CREATININE 0.78 mg/dL (0.55-1.02); POTASSIUM 3.6 mmol/L (3.5-5.1); SGOT/AST 49 IU/L (3-35); SGPT/ALT 85 U/L (12-78); SODIUM 141 mmol/L (136-145); TOTAL PROTEIN 7.3 gm/dL (6.4-8.2)
== END | disposition home or self-care (01) ==
LOC: LAB 07:54
PROVIDERS: ATTEND Internal Medicine Hematology & Oncology
DX: C25.9 Malignant neoplasm of pancreas, unspecified (principal)

== ENCOUNTER → 2020-11-24 | Outpatient (CLI) | payer OTHER ==
[2020-11-24 07:46] LABS: BASO % 0.5 % (0.0-1.0); EOS # 0.1 10*3/uL (0.0-0.4); EOS % 2.2 % (1.0-4.0); HEMATOCRIT 38.4 % (37.0-47.0); LYMPH # 1.8 10*3/uL (1.3-4.4); LYMPH % 28.5 % (27.0-41.0); MEAN CELL VOLUME 93.4 fl (81.0-99.0); MEAN CORPUSCULAR HGB 29.7 pg (27.0-31.0); MEAN CORPUSCULAR HGB CONC 31.8 g/dl (33.0-37.0); MEAN PLATELET VOLUME 9.7 fl (9.6-12.3); MONO # 0.3 10*3/uL (0.1-1.0); MONO % 4.7 % (3.0-9.0); NEUT # 4.1 10*3/uL (2.3-7.9); NEUT % 63.6 % (47.0-73.0); PLATELET COUNT AUTOMATED 287 10*3/uL (130-400); RED BLOOD COUNT 4.11 10*6/uL (4.10-5.10); RED CELL DISTRI WIDTH 24.9 % (0-14.5); WHITE BLOOD COUNT 6.4 10*3/uL (4.8-10.8)
[2020-11-24 08:17] LABS: CHLORIDE 105 mmol/L (98-107); POTASSIUM 3.3 mmol/L (3.5-5.1); SODIUM 139 mmol/L (136-145)
[2020-11-24 08:25] LABS: ALBUMIN 3.7 gm/dl (3.1-4.5); ALKALINE PHOSPHATASE 111 U/L (45-117); BUN 16 mg/dl (7-24); CREATININE 1.03 mg/dL (0.55-1.02); SGOT/AST 35 IU/L (3-35); SGPT/ALT 60 U/L (12-78); TOTAL PROTEIN 7.6 gm/dL (6.4-8.2)
== END | disposition home or self-care (01) ==
LOC: LAB 07:13
PROVIDERS: ATTEND Internal Medicine Hematology & Oncology
DX: C25.9 Malignant neoplasm of pancreas, unspecified (principal)

== ENCOUNTER → 2020-12-01 | Outpatient (CLI) | payer OTHER ==
[2020-12-01 08:45] LABS: BASO % 0.8 % (0.0-1.0); EOS # 0.1 10*3/uL (0.0-0.4); EOS % 2.5 % (1.0-4.0); HEMATOCRIT 38.1 % (37.0-47.0); LYMPH # 1.8 10*3/uL (1.3-4.4); MEAN CELL VOLUME 91.4 fl (81.0-99.0); MEAN CORPUSCULAR HGB 29.7 pg (27.0-31.0); MEAN CORPUSCULAR HGB CONC 32.5 g/dl (33.0-37.0); MEAN PLATELET VOLUME 9.4 fl (9.6-12.3); MONO # 0.2 10*3/uL (0.1-1.0); MONO % 4.5 % (3.0-9.0); NEUT # 1.9 10*3/uL (2.3-7.9); NEUT % 46.9 % (47.0-73.0); NUCLEATED RED BLOOD CELL 0.5 % (0.0-0.0); PLATELET COUNT AUTOMATED 418 10*3/uL (130-400); RED BLOOD COUNT 4.17 10*6/uL (4.10-5.10); RED CELL DISTRI WIDTH 20.7 % (0-14.5)
[2020-12-01 09:13] LABS: ALBUMIN 3.4 gm/dl (3.1-4.5); BUN 9 mg/dl (7-24); CHLORIDE 109 mmol/L (98-107); POTASSIUM 3.7 mmol/L (3.5-5.1); SODIUM 141 mmol/L (136-145)
[2020-12-01 09:17] LABS: ALKALINE PHOSPHATASE 108 U/L (45-117); CREATININE 0.67 mg/dL (0.55-1.02); SGOT/AST 49 IU/L (3-35); SGPT/ALT 81 U/L (12-78); TOTAL PROTEIN 7.3 gm/dL (6.4-8.2)
== END | disposition home or self-care (01) ==
LOC: LAB 08:08
PROVIDERS: ATTEND Internal Medicine Hematology & Oncology
DX: C25.9 Malignant neoplasm of pancreas, unspecified (principal)

== ENCOUNTER → 2020-12-09 | Outpatient (CLI) | payer OTHER ==
[2020-12-09 08:25] LABS: HEMATOCRIT 36.4 % (37.0-47.0); MEAN CELL VOLUME 93.3 fl (81.0-99.0); MEAN CORPUSCULAR HGB 30.8 pg (27.0-31.0); MEAN PLATELET VOLUME 9.3 fl (9.6-12.3); NUCLEATED RED BLOOD CELL 0.7 % (0.0-0.0); PLATELET COUNT AUTOMATED 150 10*3/uL (130-400); RED CELL DISTRI WIDTH 19.7 % (0-14.5); WHITE BLOOD COUNT 3.1 10*3/uL (4.8-10.8)
[2020-12-09 08:44] LABS: ALBUMIN 3.6 gm/dl (3.1-4.5); ALKALINE PHOSPHATASE 109 U/L (45-117); BUN 10 mg/dl (7-24); CHLORIDE 109 mmol/L (98-107); CREATININE 0.73 mg/dL (0.55-1.02); POTASSIUM 4.2 mmol/L (3.5-5.1); SGOT/AST 43 IU/L (3-35); SGPT/ALT 75 U/L (12-78); SODIUM 141 mmol/L (136-145); TOTAL PROTEIN 7.3 gm/dL (6.4-8.2)
[2020-12-09 08:49] LABS: ATYPICAL LYMPHS 1 % (0-0); BASOPHILS 2 % (0-1); OVALOCYTES FEW; PLATELET SUFFICIENCY NORMAL (NORMAL); POLYCHROMASIA SLIGHT; SCHISTOCYTES FEW; TOTAL CELLS COUNTED 100 #CELLS
== END | disposition home or self-care (01) ==
LOC: LAB 08:08
PROVIDERS: ATTEND Internal Medicine Hematology & Oncology
DX: C25.9 Malignant neoplasm of pancreas, unspecified (principal)

== ENCOUNTER → 2020-12-16 | Outpatient (CLI) | payer OTHER ==
[2020-12-16 15:19] LABS: BASO % 0.6 % (0.0-1.0); EOS # 0.2 10*3/uL (0.0-0.4); EOS % 2.3 % (1.0-4.0); HEMATOCRIT 35.1 % (37.0-47.0); LYMPH % 29.7 % (27.0-41.0); MEAN CELL VOLUME 95.4 fl (81.0-99.0); MEAN CORPUSCULAR HGB CONC 32.5 g/dl (33.0-37.0); MEAN PLATELET VOLUME 10.1 fl (9.6-12.3); MONO # 0.6 10*3/uL (0.1-1.0); MONO % 8.5 % (3.0-9.0); NEUT % 58.2 % (47.0-73.0); PLATELET COUNT AUTOMATED 237 10*3/uL (130-400); RED BLOOD COUNT 3.68 10*6/uL (4.10-5.10); RED CELL DISTRI WIDTH 19.4 % (0-14.5); WHITE BLOOD COUNT 6.8 10*3/uL (4.8-10.8)
[2020-12-16 15:34] LABS: ALBUMIN 3.2 gm/dl (3.1-4.5); BUN 11 mg/dl (7-24); CHLORIDE 112 mmol/L (98-107); POTASSIUM 4.6 mmol/L (3.5-5.1); SGPT/ALT 54 U/L (12-78); SODIUM 143 mmol/L (136-145)
[2020-12-16 15:36] LABS: ALKALINE PHOSPHATASE 97 U/L (45-117); SGOT/AST 33 IU/L (3-35); TOTAL PROTEIN 6.7 gm/dL (6.4-8.2)
== END | disposition home or self-care (01) ==
LOC: LAB 14:46
PROVIDERS: ATTEND Internal Medicine Hematology & Oncology
DX: C25.9 Malignant neoplasm of pancreas, unspecified (principal)

== ENCOUNTER → 2020-12-23 | Outpatient (CLI) | payer OTHER ==
[2020-12-23 10:12] LABS: BASO # 0.1 10*3/uL (0.0-0.1); BASO % 0.9 % (0.0-1.0); EOS # 0.2 10*3/uL (0.0-0.4); EOS % 3.6 % (1.0-4.0); HEMATOCRIT 39.3 % (37.0-47.0); LYMPH # 1.7 10*3/uL (1.3-4.4); LYMPH % 28.4 % (27.0-41.0); MEAN CELL VOLUME 96.3 fl (81.0-99.0); MEAN CORPUSCULAR HGB 31.4 pg (27.0-31.0); MEAN CORPUSCULAR HGB CONC 32.6 g/dl (33.0-37.0); MEAN PLATELET VOLUME 9.7 fl (9.6-12.3); MONO # 0.3 10*3/uL (0.1-1.0); MONO % 5.8 % (3.0-9.0); NEUT # 3.6 10*3/uL (2.3-7.9); PLATELET COUNT AUTOMATED 366 10*3/uL (130-400); RED BLOOD COUNT 4.08 10*6/uL (4.10-5.10); RED CELL DISTRI WIDTH 16.6 % (0-14.5); WHITE BLOOD COUNT 5.9 10*3/uL (4.8-10.8)
[2020-12-23 10:42] LABS: ALBUMIN 3.3 gm/dl (3.1-4.5); ALKALINE PHOSPHATASE 92 U/L (45-117); BUN 12 mg/dl (7-24); CHLORIDE 110 mmol/L (98-107); CREATININE 0.72 mg/dL (0.55-1.02); POTASSIUM 3.9 mmol/L (3.5-5.1); SGOT/AST 45 IU/L (3-35); SGPT/ALT 57 U/L (12-78); SODIUM 141 mmol/L (136-145); TOTAL PROTEIN 7.3 gm/dL (6.4-8.2)
== END | disposition home or self-care (01) ==
LOC: LAB 09:36
PROVIDERS: ATTEND Internal Medicine Hematology & Oncology
DX: C25.9 Malignant neoplasm of pancreas, unspecified (principal)

== ENCOUNTER → 2021-02-24 | Outpatient (CLI) | payer OTHER ==
[2021-02-24 10:12] LABS: BASO % 0.7 % (0.0-1.0); EOS # 0.1 10*3/uL (0.0-0.4); EOS % 2.2 % (1.0-4.0); HEMATOCRIT 41.9 % (37.0-47.0); LYMPH # 1.2 10*3/uL (1.3-4.4); LYMPH % 27.6 % (27.0-41.0); MEAN CELL VOLUME 91.7 fl (81.0-99.0); MEAN CORPUSCULAR HGB 30.2 pg (27.0-31.0); MEAN CORPUSCULAR HGB CONC 32.9 g/dl (33.0-37.0); MONO # 0.2 10*3/uL (0.1-1.0); MONO % 5.4 % (3.0-9.0); NEUT # 2.8 10*3/uL (2.3-7.9); NEUT % 63.7 % (47.0-73.0); PLATELET COUNT AUTOMATED 232 10*3/uL (130-400); RED BLOOD COUNT 4.57 10*6/uL (4.10-5.10); RED CELL DISTRI WIDTH 13.4 % (0-14.5); WHITE BLOOD COUNT 4.5 10*3/uL (4.8-10.8)
[2021-02-24 10:40] LABS: ALBUMIN 3.4 gm/dl (3.1-4.5); ALKALINE PHOSPHATASE 121 U/L (45-117); BUN 13 mg/dl (7-24); CHLORIDE 109 mmol/L (98-107); CREATININE 0.75 mg/dL (0.55-1.02); POTASSIUM 3.8 mmol/L (3.5-5.1); SGOT/AST 25 IU/L (3-35); SGPT/ALT 46 U/L (12-78); SODIUM 141 mmol/L (136-145); TOTAL PROTEIN 7.1 gm/dL (6.4-8.2)
== END | disposition home or self-care (01) ==
LOC: LAB 09:47
PROVIDERS: ATTEND Internal Medicine Hematology & Oncology
DX: C25.9 Malignant neoplasm of pancreas, unspecified (principal)

== ENCOUNTER → 2021-05-04 | Outpatient (CLI) | payer OTHER | END | disposition home or self-care (01) | LOC: RAD 15:11 | PROVIDERS: ATTEND Nurse Practitioner Family | DX: R05.9 Cough, unspecified (principal); E11.65 Type 2 diabetes mellitus with hyperglycemia; R09.81 Nasal congestion; Z85.07 Personal history of malignant neoplasm of pancreas ==

== ENCOUNTER 2021-05-08 13:47 | Emergency (ER) | payer OTHER ==
[2021-05-08 14:25] LABS: BASO # 0.1 10*3/uL (0.0-0.1); BASO % 0.7 % (0.0-1.0); EOS # 0.1 10*3/uL (0.0-0.4); HEMATOCRIT 40.5 % (37.0-47.0); LYMPH % 29.9 % (27.0-41.0); MEAN CELL VOLUME 89.8 fl (81.0-99.0); MEAN CORPUSCULAR HGB 29.9 pg (27.0-31.0); MEAN CORPUSCULAR HGB CONC 33.3 g/dl (33.0-37.0); MEAN PLATELET VOLUME 9.8 fl (9.6-12.3); MONO # 0.4 10*3/uL (0.1-1.0); MONO % 6.3 % (3.0-9.0); NEUT # 4.1 10*3/uL (2.3-7.9); NEUT % 61.7 % (47.0-73.0); PLATELET COUNT AUTOMATED 244 10*3/uL (130-400); RED BLOOD COUNT 4.51 10*6/uL (4.10-5.10); RED CELL DISTRI WIDTH 13.5 % (0-14.5); WHITE BLOOD COUNT 6.7 10*3/uL (4.8-10.8)
[2021-05-08 14:37] LABS: ACT PARTIAL THROMBO TIME 23.6 SECONDS (20.0-32.1)
[2021-05-08 14:44] LABS: ALKALINE PHOSPHATASE 110 U/L (45-117); BUN 18 mg/dl (7-24); CHLORIDE 109 mmol/L (98-107); CREATININE 0.83 mg/dL (0.55-1.02); SGOT/AST 64 IU/L (3-35); SGPT/ALT 64 U/L (12-78); SODIUM 140 mmol/L (136-145); TOTAL PROTEIN 6.6 gm/dL (6.4-8.2)
[2021-05-08 14:45] LABS: TROPONIN I 0.034 ng/ml (<0.045)
[2021-05-08 16:21] VITALS: BP 138/76
== END 2021-05-08 17:38 | disposition home or self-care (01) ==
LOC: ED 13:47
PROVIDERS: Student in an Organized Health Care Education/Training Program
DX: R00.2 Palpitations (principal); F17.200 Nicotine dependence, unspecified, uncomplicated; Z91.041 Radiographic dye allergy status; Z88.8 Allergy status to other drugs, medicaments and biological substances; Z79.899 Other long term (current) drug therapy; Z79.82 Long term (current) use of aspirin

== ENCOUNTER 2021-07-09 03:34 | Inpatient (IN) | payer OTHER ==
[~2021-07-09] VITALS: Ht 165.1 cm; Wt 79.2 kg
[2021-07-09] VITALS (7 sets, daily range): BP systolic 115–177; BP diastolic 66–92
[2021-07-09 06:00] LABS: BASO % 0.3 % (0.0-1.0); EOS # 0.1 10*3/uL (0.0-0.4); HEMATOCRIT 43.2 % (37.0-47.0); LYMPH # 0.8 10*3/uL (1.3-4.4); LYMPH % 9.1 % (27.0-41.0); MEAN CELL VOLUME 87.6 fl (81.0-99.0); MEAN CORPUSCULAR HGB 30.2 pg (27.0-31.0); MEAN CORPUSCULAR HGB CONC 34.5 g/dl (33.0-37.0); MEAN PLATELET VOLUME 9.8 fl (9.6-12.3); MONO # 0.5 10*3/uL (0.1-1.0); MONO % 5.4 % (3.0-9.0); NEUT # 7.7 10*3/uL (2.3-7.9); NEUT % 83.9 % (47.0-73.0); PLATELET COUNT AUTOMATED 203 10*3/uL (130-400); RED BLOOD COUNT 4.93 10*6/uL (4.10-5.10); RED CELL DISTRI WIDTH 12.6 % (0-14.5); WHITE BLOOD COUNT 9.2 10*3/uL (4.8-10.8)
[2021-07-09 06:11] LABS: ALBUMIN 3.3 gm/dl (3.1-4.5); ALKALINE PHOSPHATASE 127 U/L (45-117); BUN 19 mg/dl (7-24); CHLORIDE 102 mmol/L (98-107); CREATININE 0.81 mg/dL (0.55-1.02); SGOT/AST 17 IU/L (3-35); SGPT/ALT 38 U/L (12-78); SODIUM 134 mmol/L (136-145); TOTAL PROTEIN 7.6 gm/dL (6.4-8.2)
[2021-07-09 06:20] LABS: LIPASE 1858 U/L (73-393)
[2021-07-09 07:44] LABS: BILIRUBIN Negative (Negative); BLOOD Trace-Lysed (Negative); CLARITY Cloudy (Clear); COLOR Yellow (Yellow); GLUCOSE 3+ (Negative); KETONE 1+ (Negative); LEUKO ESTERASE Negative (Negative); NITRITE Positive (Negative); SPECIFIC GRAVITY >= 1.030 (1.001-1.030); UROBILINOGEN 0.2 E.U./dl (0.0-1.0)
[2021-07-09 07:56] LABS: BACTERIA 4+
[2021-07-10] VITALS: BP 105/54
[2021-07-10 07:02] LABS: BASO % 0.3 % (0.0-1.0); EOS # 0.1 10*3/uL (0.0-0.4); EOS % 1.5 % (1.0-4.0); HEMATOCRIT 38.1 % (37.0-47.0); LYMPH # 1.3 10*3/uL (1.3-4.4); LYMPH % 21.3 % (27.0-41.0); MEAN CELL VOLUME 88.2 fl (81.0-99.0); MEAN CORPUSCULAR HGB 29.9 pg (27.0-31.0); MEAN CORPUSCULAR HGB CONC 33.9 g/dl (33.0-37.0); MONO # 0.5 10*3/uL (0.1-1.0); MONO % 7.8 % (3.0-9.0); NEUT # 4.1 10*3/uL (2.3-7.9); NEUT % 68.8 % (47.0-73.0); PLATELET COUNT AUTOMATED 189 10*3/uL (130-400); RED BLOOD COUNT 4.32 10*6/uL (4.10-5.10); RED CELL DISTRI WIDTH 12.7 % (0-14.5); WHITE BLOOD COUNT 5.9 10*3/uL (4.8-10.8)
[2021-07-10 07:24] LABS: CHLORIDE 108 mmol/L (98-107); SODIUM 139 mmol/L (136-145)
[2021-07-10 07:34] LABS: ALBUMIN 2.5 gm/dl (3.1-4.5); ALKALINE PHOSPHATASE 94 U/L (45-117); BUN 16 mg/dl (7-24); CHOLESTEROL 123 mg/dL (<200); LDL CHOLESTEROL 65 mg/dL (9-159); LIPASE 486 U/L (73-393); SGOT/AST 13 IU/L (3-35); SGPT/ALT 27 U/L (12-78); THYROID STIM HORMONE (HS) 0.439 uIU/ml (0.358-4.75); TOTAL PROTEIN 6.5 gm/dL (6.4-8.2); TRIGLYCERIDES 122 mg/dl (<150)
[2021-07-10 08:00] VITALS: BP 124/68
== END 2021-07-10 08:30 | disposition left against medical advice (07) | DRG 282 ==
LOC: ED 03:34 → EDHOLD 07:02 → 5E 19:00
PROVIDERS: Emergency Medicine; Internal Medicine; ADMIT Internal Medicine; ATTEND Internal Medicine
DX: K85.80 Other acute pancreatitis without necrosis or infection (principal); N30.01 Acute cystitis with hematuria; K21.9 Gastro-esophageal reflux disease without esophagitis; I25.10 Atherosclerotic heart disease of native coronary artery without angina pectoris; E78.5 Hyperlipidemia, unspecified; E44.0 Moderate protein-calorie malnutrition; E87.1 Hypo-osmolality and hyponatremia; E11.65 Type 2 diabetes mellitus with hyperglycemia; F41.9 Anxiety disorder, unspecified; C25.9 Malignant neoplasm of pancreas, unspecified; I12.9 Hypertensive chronic kidney disease with stage 1 through stage 4 chronic kidney disease, or unspecified chronic kidney disease; R82.4 Acetonuria; R80.9 Proteinuria, unspecified; E11.22 Type 2 diabetes mellitus with diabetic chronic kidney disease; N18.30 Chronic kidney disease, stage 3 unspecified; Z86.73 Personal history of transient ischemic attack (TIA), and cerebral infarction without residual deficits; I25.2 Old myocardial infarction; Z80.0 Family history of malignant neoplasm of digestive organs; Z82.61 Family history of arthritis; Z88.1 Allergy status to other antibiotic agents; Z79.899 Other long term (current) drug therapy; Z79.82 Long term (current) use of aspirin; Z68.29 Body mass index [BMI] 29.0-29.9, adult; Z87.891 Personal history of nicotine dependence

== ENCOUNTER 2021-07-25 19:35 | Emergency (ER) | payer OTHER ==
[~2021-07-25] VITALS: Ht 165.1 cm; Wt 73.5 kg
[2021-07-25 19:56] VITALS: BP 143/101
== END 2021-07-25 22:00 | disposition left against medical advice (07) ==
LOC: ED 19:35
DX: Z53.21 Procedure and treatment not carried out due to patient leaving prior to being seen by health care provider (principal)

== ENCOUNTER 2021-08-01 08:41 | Emergency (ER) | payer OTHER ==
[~2021-08-01] VITALS: Ht 165.1 cm; Wt 72.6 kg
[2021-08-01 09:29] VITALS: BP 150/71
[2021-08-01 10:41] LABS: BASO % 0.5 % (0.0-1.0); EOS # 0.1 10*3/uL (0.0-0.4); EOS % 2.1 % (1.0-4.0); HEMATOCRIT 41.4 % (37.0-47.0); LYMPH # 0.8 10*3/uL (1.3-4.4); LYMPH % 13.2 % (27.0-41.0); MEAN CELL VOLUME 90.4 fl (81.0-99.0); MEAN CORPUSCULAR HGB 29.9 pg (27.0-31.0); MEAN CORPUSCULAR HGB CONC 33.1 g/dl (33.0-37.0); MEAN PLATELET VOLUME 10.1 fl (9.6-12.3); MONO # 0.3 10*3/uL (0.1-1.0); MONO % 4.6 % (3.0-9.0); NEUT # 4.5 10*3/uL (2.3-7.9); NEUT % 79.2 % (47.0-73.0); PLATELET COUNT AUTOMATED 218 10*3/uL (130-400); RED BLOOD COUNT 4.58 10*6/uL (4.10-5.10); RED CELL DISTRI WIDTH 13.8 % (0-14.5); WHITE BLOOD COUNT 5.7 10*3/uL (4.8-10.8)
[2021-08-01 11:00] LABS: ALBUMIN 2.8 gm/dl (3.1-4.5); ALKALINE PHOSPHATASE 507 U/L (45-117); BUN 10 mg/dl (7-24); CHLORIDE 102 mmol/L (98-107); LIPASE 39 U/L (73-393); POTASSIUM 4.4 mmol/L (3.5-5.1); SGOT/AST 56 IU/L (3-35); SGPT/ALT 99 U/L (12-78); SODIUM 133 mmol/L (136-145); TOTAL PROTEIN 6.9 gm/dL (6.4-8.2)
[2021-08-01] MEDS ORDERED: CHOLESTYRAMI239.4 GM PO (12:44)
== END 2021-08-01 13:00 | disposition home or self-care (01) ==
LOC: ED 08:41
PROVIDERS: Emergency Medicine
DX: R21 Rash and other nonspecific skin eruption (principal); I12.9 Hypertensive chronic kidney disease with stage 1 through stage 4 chronic kidney disease, or unspecified chronic kidney disease; E11.22 Type 2 diabetes mellitus with diabetic chronic kidney disease; N18.30 Chronic kidney disease, stage 3 unspecified; E78.5 Hyperlipidemia, unspecified; K21.9 Gastro-esophageal reflux disease without esophagitis; Z88.8 Allergy status to other drugs, medicaments and biological substances; Z91.041 Radiographic dye allergy status; Z87.891 Personal history of nicotine dependence

== ENCOUNTER 2021-08-31 14:45 | Emergency (ER) | payer OTHER ==
[~2021-08-31] VITALS: Ht 165.1 cm; Wt 72.6 kg
[~2021-08-31 14:45] MED LIST changes: +ASPIRIN CHEWABL81 MG PO; +CARAFATE1 G1 PO; +CHOLESTYRAMI239.4 GM PO; +CHOLESTYRAMINE378 GM PO; +CITALOPRAM20 MG PO; +CREON DR 24,001 EACH PO; +FAMOTIDINE40 MG PO; +METOCLOPRAMIDE5 MG PO; +PREVALITE POWD231 GM PO; +VITAMIN D350 MCG PO
[2021-08-31 16:06] LABS: BASO % 0.1 % (0.0-1.0); EOS % 0.2 % (1.0-4.0); HEMATOCRIT 40.5 % (37.0-47.0); LYMPH # 0.6 10*3/uL (1.3-4.4); LYMPH % 5.9 % (27.0-41.0); MEAN CELL VOLUME 89.2 fl (81.0-99.0); MEAN CORPUSCULAR HGB 30.6 pg (27.0-31.0); MEAN CORPUSCULAR HGB CONC 34.3 g/dl (33.0-37.0); MEAN PLATELET VOLUME 11.1 fl (9.6-12.3); MONO # 0.7 10*3/uL (0.1-1.0); MONO % 6.2 % (3.0-9.0); NEUT # 9.1 10*3/uL (2.3-7.9); PLATELET COUNT AUTOMATED 224 10*3/uL (130-400); RED BLOOD COUNT 4.54 10*6/uL (4.10-5.10); RED CELL DISTRI WIDTH 15.7 % (0-14.5); WHITE BLOOD COUNT 10.5 10*3/uL (4.8-10.8)
[2021-08-31 16:19] LABS: ACT PARTIAL THROMBO TIME 27.3 SECONDS (20.0-32.1); INTERNATIONAL NORM RATIO 1.1 (2.0-3.5)
[2021-08-31 16:26] LABS: ALKALINE PHOSPHATASE 276 U/L (45-117); BUN 9 mg/dl (7-24); CHLORIDE 100 mmol/L (98-107); CREATININE 0.76 mg/dL (0.55-1.02); LIPASE 13 U/L (73-393); POTASSIUM 3.7 mmol/L (3.5-5.1); SGOT/AST 20 IU/L (3-35); SGPT/ALT 31 U/L (12-78); SODIUM 132 mmol/L (136-145)
[2021-09-01 08:46] VITALS: BP 143/75
== END 2021-09-01 09:05 | disposition short-term general hospital (02) ==
LOC: ED 14:45
PROVIDERS: Emergency Medicine
DX: T85.528A Displacement of other gastrointestinal prosthetic devices, implants and grafts, initial encounter (principal); K75.0 Abscess of liver; I10 Essential (primary) hypertension; E11.9 Type 2 diabetes mellitus without complications; I25.2 Old myocardial infarction; Z86.73 Personal history of transient ischemic attack (TIA), and cerebral infarction without residual deficits; Z91.041 Radiographic dye allergy status; Z88.8 Allergy status to other drugs, medicaments and biological substances; Z79.899 Other long term (current) drug therapy; Z79.82 Long term (current) use of aspirin; Z90.710 Acquired absence of both cervix and uterus; Z98.890 Other specified postprocedural states; Z90.49 Acquired absence of other specified parts of digestive tract; Z98.51 Tubal ligation status; Z87.891 Personal history of nicotine dependence; Y92.89 Other specified places as the place of occurrence of the external cause

== ENCOUNTER 2021-09-10 12:48 | Inpatient (IN) | payer OTHER ==
[~2021-09-10] VITALS: Ht 165.1 cm; Wt 72.6 kg
[2021-09-10 10:59] LABS: BASO # 0.1 10*3/uL (0.0-0.1); BASO % 0.7 % (0.0-1.0); EOS # 0.2 10*3/uL (0.0-0.4); EOS % 1.3 % (1.0-4.0); LYMPH # 1.2 10*3/uL (1.3-4.4); LYMPH % 8.4 % (27.0-41.0); MEAN CELL VOLUME 86.5 fl (81.0-99.0); MEAN CORPUSCULAR HGB 30.6 pg (27.0-31.0); MEAN CORPUSCULAR HGB CONC 35.4 g/dl (33.0-37.0); MEAN PLATELET VOLUME 10.2 fl (9.6-12.3); MONO # 0.5 10*3/uL (0.1-1.0); MONO % 3.3 % (3.0-9.0); NEUT # 11.9 10*3/uL (2.3-7.9); NEUT % 85.6 % (47.0-73.0); PLATELET COUNT AUTOMATED 504 10*3/uL (130-400); RED BLOOD COUNT 4.51 10*6/uL (4.10-5.10); RED CELL DISTRI WIDTH 15.2 % (0-14.5); WHITE BLOOD COUNT 13.9 10*3/uL (4.8-10.8)
[2021-09-10 11:14] LABS: ALBUMIN 2.9 gm/dl (3.1-4.5); ALKALINE PHOSPHATASE 256 U/L (45-117); BUN 15 mg/dl (7-24); CHLORIDE 95 mmol/L (98-107); CREATININE 0.91 mg/dL (0.55-1.02); POTASSIUM 4.6 mmol/L (3.5-5.1); SGOT/AST 24 IU/L (3-35); SGPT/ALT 44 U/L (12-78); SODIUM 124 mmol/L (136-145); TOTAL PROTEIN 8.2 gm/dL (6.4-8.2)
[2021-09-10 12:55] VITALS: BP 92/61
[2021-09-10] MEDS ORDERED: CLOPIDOGREL75 MG PO (16:21)
[2021-09-10] MEDS ORDERED: ASPIRIN ADULT L81 M2 PO (16:21)
[2021-09-10] MEDS ORDERED: METOPROLOL TART50 M1 PO (16:22)
[2021-09-10] MEDS ORDERED: PANTOPRAZOLE SO40 MG PO (16:23)
[2021-09-10] MEDS ORDERED: OXYCODONE HCL5 MG PO (16:23)
[2021-09-10] MEDS ORDERED: METHOCARBAMOL500 M1 PO (16:23)
[2021-09-10] MEDS ORDERED: TOPIRAMATE25 M3 PO (16:23)
[2021-09-10] MEDS ORDERED: SENNA PLUS 8.61 EACH PO (16:24)
[2021-09-10] MEDS ORDERED: Imdur SA60 MG PO (16:24)
[2021-09-10] MEDS ORDERED: ROSUVASTATIN CA40 MG PO (16:24)
[2021-09-10] MEDS ORDERED: LISINOPRIL5 MG PO (16:24)
[2021-09-10] MEDS ORDERED: CREON DR 24,001 EACH PO (16:25)
[2021-09-10] MEDS ORDERED: Carafate1 GM PO (16:25)
[2021-09-10] MEDS ORDERED: LANTUS SOL100 UNIT/1 SC (16:30)
[2021-09-10 19:18] VITALS: BP 132/64
[2021-09-10 20:00] VITALS: BP 126/67
[2021-09-11] VITALS: BP 107/60
[2021-09-11 06:47] LABS: BASO % 0.3 % (0.0-1.0); EOS # 0.2 10*3/uL (0.0-0.4); EOS % 1.5 % (1.0-4.0); HEMATOCRIT 31.6 % (37.0-47.0); LYMPH # 0.8 10*3/uL (1.3-4.4); LYMPH % 6.7 % (27.0-41.0); MEAN CELL VOLUME 87.8 fl (81.0-99.0); MEAN CORPUSCULAR HGB 31.1 pg (27.0-31.0); MEAN CORPUSCULAR HGB CONC 35.4 g/dl (33.0-37.0); MEAN PLATELET VOLUME 10.2 fl (9.6-12.3); MONO # 0.4 10*3/uL (0.1-1.0); MONO % 3.5 % (3.0-9.0); NEUT # 10.1 10*3/uL (2.3-7.9); NEUT % 87.6 % (47.0-73.0); RED CELL DISTRI WIDTH 15.2 % (0-14.5); WHITE BLOOD COUNT 11.6 10*3/uL (4.8-10.8)
[2021-09-11 06:52] LABS: INTERNATIONAL NORM RATIO 1.1 (2.0-3.5)
[2021-09-11 07:08] LABS: ALBUMIN 2.3 gm/dl (3.1-4.5); BUN 12 mg/dl (7-24); CHLORIDE 102 mmol/L (98-107); SODIUM 133 mmol/L (136-145)
[2021-09-11 07:12] LABS: ALKALINE PHOSPHATASE 174 U/L (45-117); CREATININE 0.61 mg/dL (0.55-1.02); SGOT/AST 24 IU/L (3-35); SGPT/ALT 35 U/L (12-78); TOTAL PROTEIN 6.4 gm/dL (6.4-8.2)
[2021-09-11 07:19] LABS: POTASSIUM 3.5 mmol/L (3.5-5.1)
[2021-09-11 08:00] VITALS: BP 140/70
[2021-09-11 08:05] LABS: PLATELET COUNT AUTOMATED 322 10*3/uL (130-400)
[2021-09-11 12:00] VITALS: BP 128/74
== END 2021-09-11 14:28 | disposition home health service (06) | DRG 720 ==
LOC: EDSTATUS 12:48 → ED 12:49 → EDHOLD 15:11 → 4E 18:39
PROVIDERS: Family Medicine; Physician Assistant; ADMIT Internal Medicine; ATTEND Internal Medicine
DX: A41.9 Sepsis, unspecified organism (principal); K75.0 Abscess of liver; E44.0 Moderate protein-calorie malnutrition; E86.0 Dehydration; E87.1 Hypo-osmolality and hyponatremia; C25.9 Malignant neoplasm of pancreas, unspecified; I12.9 Hypertensive chronic kidney disease with stage 1 through stage 4 chronic kidney disease, or unspecified chronic kidney disease; E11.22 Type 2 diabetes mellitus with diabetic chronic kidney disease; N18.30 Chronic kidney disease, stage 3 unspecified; E11.65 Type 2 diabetes mellitus with hyperglycemia; D75.839 Thrombocytosis, unspecified; E80.6 Other disorders of bilirubin metabolism; K21.9 Gastro-esophageal reflux disease without esophagitis; F43.10 Post-traumatic stress disorder, unspecified; F41.9 Anxiety disorder, unspecified; I25.10 Atherosclerotic heart disease of native coronary artery without angina pectoris; G40.909 Epilepsy, unspecified, not intractable, without status epilepticus; R65.20 Severe sepsis without septic shock; Z79.4 Long term (current) use of insulin; Z91.041 Radiographic dye allergy status; Z88.8 Allergy status to other drugs, medicaments and biological substances; Z90.49 Acquired absence of other specified parts of digestive tract; Z98.891 History of uterine scar from previous surgery; Z87.891 Personal history of nicotine dependence; Z79.82 Long term (current) use of aspirin; Z79.899 Other long term (current) drug therapy; Z68.26 Body mass index [BMI] 26.0-26.9, adult

== ENCOUNTER 2021-09-22 20:32 | Emergency (ER) | payer OTHER ==
[~2021-09-22] VITALS: Ht 165.1 cm; Wt 68.0 kg
[~2021-09-22 20:32] MED LIST changes: +ASPIRIN ADULT L81 M2 PO; +Carafate1 GM PO; +Imdur SA60 MG PO; +LISINOPRIL5 MG PO; +METHOCARBAMOL500 M1 PO; +METOPROLOL TART50 M1 PO; +ROSUVASTATIN CA40 MG PO; +SENNA PLUS 8.61 EACH PO; +TOPIRAMATE25 M3 PO
[2021-09-22 22:42] LABS: BASO % 0.6 % (0.0-1.0); EOS # 0.3 10*3/uL (0.0-0.4); EOS % 5.1 % (1.0-4.0); HEMATOCRIT 34.8 % (37.0-47.0); LYMPH # 1.7 10*3/uL (1.3-4.4); LYMPH % 26.9 % (27.0-41.0); MEAN CELL VOLUME 86.8 fl (81.0-99.0); MEAN CORPUSCULAR HGB 29.9 pg (27.0-31.0); MEAN CORPUSCULAR HGB CONC 34.5 g/dl (33.0-37.0); MEAN PLATELET VOLUME 9.6 fl (9.6-12.3); MONO # 0.4 10*3/uL (0.1-1.0); MONO % 6.3 % (3.0-9.0); NEUT # 3.8 10*3/uL (2.3-7.9); NEUT % 60.6 % (47.0-73.0); PLATELET COUNT AUTOMATED 320 10*3/uL (130-400); RED BLOOD COUNT 4.01 10*6/uL (4.10-5.10); RED CELL DISTRI WIDTH 14.7 % (0-14.5); WHITE BLOOD COUNT 6.3 10*3/uL (4.8-10.8)
[2021-09-22 22:56] LABS: ALKALINE PHOSPHATASE 174 U/L (45-117); BUN 8 mg/dl (7-24); CHLORIDE 102 mmol/L (98-107); CREATININE 0.66 mg/dL (0.55-1.02); LIPASE 31 U/L (73-393); POTASSIUM 3.8 mmol/L (3.5-5.1); SGOT/AST 20 IU/L (3-35); SGPT/ALT 30 U/L (12-78); SODIUM 134 mmol/L (136-145); TOTAL PROTEIN 7.1 gm/dL (6.4-8.2)
[2021-09-23 00:25] LABS: BILIRUBIN Negative (Negative); BLOOD Negative (Negative); CLARITY Clear (Clear); COLOR Yellow (Yellow); GLUCOSE Trace (Negative); KETONE Negative (Negative); LEUKO ESTERASE Trace (Negative); NITRITE Negative (Negative); UROBILINOGEN 0.2 E.U./dl (0.0-1.0)
[2021-09-23 00:36] LABS: EPITHELIAL CELLS 41-50
[2021-09-23 01:18] VITALS: BP 125/52
[2021-09-23] MEDS ORDERED: ONDANSETRON HYDR4 M1 PO (01:33)
== END 2021-09-23 01:50 | disposition home or self-care (01) ==
LOC: ED 20:32
PROVIDERS: Physician Assistant
DX: E80.6 Other disorders of bilirubin metabolism (principal); I10 Essential (primary) hypertension; E11.9 Type 2 diabetes mellitus without complications; I25.2 Old myocardial infarction; Z86.73 Personal history of transient ischemic attack (TIA), and cerebral infarction without residual deficits

== ENCOUNTER 2021-10-01 14:36 | Emergency (ER) | payer OTHER ==
[~2021-10-01] VITALS: Ht 165.1 cm; Wt 70.3 kg
[~2021-10-01 14:36] MED LIST changes: +ONDANSETRON HYDR4 M1 PO
[2021-10-01 15:10] LABS: BASO % 0.4 % (0.0-1.0); EOS # 0.2 10*3/uL (0.0-0.4); EOS % 4.1 % (1.0-4.0); HEMATOCRIT 36.8 % (37.0-47.0); LYMPH # 0.8 10*3/uL (1.3-4.4); LYMPH % 15.4 % (27.0-41.0); MEAN CELL VOLUME 86.6 fl (81.0-99.0); MEAN CORPUSCULAR HGB 30.1 pg (27.0-31.0); MEAN CORPUSCULAR HGB CONC 34.8 g/dl (33.0-37.0); MEAN PLATELET VOLUME 10.1 fl (9.6-12.3); MONO # 0.3 10*3/uL (0.1-1.0); MONO % 6.3 % (3.0-9.0); NEUT % 73.4 % (47.0-73.0); PLATELET COUNT AUTOMATED 226 10*3/uL (130-400); RED BLOOD COUNT 4.25 10*6/uL (4.10-5.10); WHITE BLOOD COUNT 5.4 10*3/uL (4.8-10.8)
[2021-10-01 15:25] LABS: ACT PARTIAL THROMBO TIME 23.4 SECONDS (20.0-32.1); ALKALINE PHOSPHATASE 339 U/L (45-117); BUN 9 mg/dl (7-24); CHLORIDE 96 mmol/L (98-107); CREATININE 0.85 mg/dL (0.55-1.02); LIPASE 43 U/L (73-393); POTASSIUM 4.8 mmol/L (3.5-5.1); SGOT/AST 20 IU/L (3-35); SGPT/ALT 76 U/L (12-78); SODIUM 129 mmol/L (136-145); TOTAL PROTEIN 7.5 gm/dL (6.4-8.2)
[2021-10-01 15:36] LABS: BILIRUBIN Negative (Negative); BLOOD Negative (Negative); CLARITY Clear (Clear); COLOR Yellow (Yellow); GLUCOSE 3+ (Negative); KETONE Negative (Negative); LEUKO ESTERASE Negative (Negative); NITRITE Negative (Negative); PH 7.5 (4.5-8.0); SPECIFIC GRAVITY >= 1.030 (1.001-1.030); UROBILINOGEN 0.2 E.U./dl (0.0-1.0)
[2021-10-01 15:51] LABS: BACTERIA TRACE
[2021-10-02 08:07] LABS: BASO % 0.7 % (0.0-1.0); EOS # 0.3 10*3/uL (0.0-0.4); EOS % 4.9 % (1.0-4.0); HEMATOCRIT 36.7 % (37.0-47.0); LYMPH # 1.3 10*3/uL (1.3-4.4); LYMPH % 22.7 % (27.0-41.0); MEAN CELL VOLUME 87.4 fl (81.0-99.0); MEAN CORPUSCULAR HGB 29.8 pg (27.0-31.0); MEAN CORPUSCULAR HGB CONC 34.1 g/dl (33.0-37.0); MEAN PLATELET VOLUME 9.9 fl (9.6-12.3); MONO # 0.3 10*3/uL (0.1-1.0); MONO % 5.2 % (3.0-9.0); NEUT # 3.8 10*3/uL (2.3-7.9); NEUT % 66.2 % (47.0-73.0); PLATELET COUNT AUTOMATED 209 10*3/uL (130-400); WHITE BLOOD COUNT 5.7 10*3/uL (4.8-10.8)
[2021-10-02 08:20] LABS: BUN 6 mg/dl (7-24); CHLORIDE 101 mmol/L (98-107); CREATININE 0.54 mg/dL (0.55-1.02); POTASSIUM 4.1 mmol/L (3.5-5.1); SODIUM 132 mmol/L (136-145)
[2021-10-02 08:45] VITALS: BP 151/80
== END 2021-10-02 10:02 | disposition home or self-care (01) ==
LOC: ED 14:36
PROVIDERS: Emergency Medicine
DX: R10.9 Unspecified abdominal pain (principal)

== ENCOUNTER 2021-10-03 14:35 | Emergency (ER) | payer OTHER ==
[~2021-10-03] VITALS: Ht 165.1 cm; Wt 68.5 kg
[2021-10-03 15:19] LABS: BASO # 0.1 10*3/uL (0.0-0.1); BASO % 0.6 % (0.0-1.0); EOS # 0.2 10*3/uL (0.0-0.4); EOS % 2.2 % (1.0-4.0); HEMATOCRIT 40.5 % (37.0-47.0); MEAN CELL VOLUME 84.6 fl (81.0-99.0); MEAN CORPUSCULAR HGB 30.3 pg (27.0-31.0); MEAN CORPUSCULAR HGB CONC 35.8 g/dl (33.0-37.0); MONO # 0.3 10*3/uL (0.1-1.0); MONO % 4.2 % (3.0-9.0); NEUT # 6.2 10*3/uL (2.3-7.9); NEUT % 79.7 % (47.0-73.0); PLATELET COUNT AUTOMATED 263 10*3/uL (130-400); RED BLOOD COUNT 4.79 10*6/uL (4.10-5.10); RED CELL DISTRI WIDTH 14.5 % (0-14.5); WHITE BLOOD COUNT 7.8 10*3/uL (4.8-10.8)
[2021-10-03 15:38] LABS: ALKALINE PHOSPHATASE 300 U/L (45-117); BUN 8 mg/dl (7-24); CHLORIDE 94 mmol/L (98-107); LIPASE 29 U/L (73-393); POTASSIUM 4.1 mmol/L (3.5-5.1); SGOT/AST 13 IU/L (3-35); SGPT/ALT 46 U/L (12-78); SODIUM 127 mmol/L (136-145); TOTAL PROTEIN 7.9 gm/dL (6.4-8.2)
[2021-10-04 09:27] VITALS: BP 139/79
== END 2021-10-03 18:09 | disposition short-term general hospital (02) ==
LOC: ED 14:35
PROVIDERS: Emergency Medicine
DX: R10.9 Unspecified abdominal pain (principal); R11.2 Nausea with vomiting, unspecified; I25.10 Atherosclerotic heart disease of native coronary artery without angina pectoris; K21.9 Gastro-esophageal reflux disease without esophagitis; G43.909 Migraine, unspecified, not intractable, without status migrainosus; I25.2 Old myocardial infarction; Z86.73 Personal history of transient ischemic attack (TIA), and cerebral infarction without residual deficits; I12.9 Hypertensive chronic kidney disease with stage 1 through stage 4 chronic kidney disease, or unspecified chronic kidney disease; E11.22 Type 2 diabetes mellitus with diabetic chronic kidney disease; N18.30 Chronic kidney disease, stage 3 unspecified; Z91.041 Radiographic dye allergy status; Z88.8 Allergy status to other drugs, medicaments and biological substances; Z79.899 Other long term (current) drug therapy; Z79.82 Long term (current) use of aspirin; Z90.49 Acquired absence of other specified parts of digestive tract; Z98.890 Other specified postprocedural states; Z90.710 Acquired absence of both cervix and uterus; Z87.891 Personal history of nicotine dependence

== ENCOUNTER 2021-11-04 14:36 | Emergency (ER) | payer OTHER ==
[~2021-11-04] VITALS: Ht 165.1 cm; Wt 63.5 kg
[2021-11-04 15:15] VITALS: BP 135/90
[2021-11-04 15:43] LABS: BASO # 0.1 10*3/uL (0.0-0.1); BASO % 0.8 % (0.0-1.0); EOS # 0.2 10*3/uL (0.0-0.4); EOS % 2.7 % (1.0-4.0); HEMATOCRIT 44.8 % (37.0-47.0); LYMPH # 1.6 10*3/uL (1.3-4.4); MEAN CELL VOLUME 82.4 fl (81.0-99.0); MEAN CORPUSCULAR HGB 29.4 pg (27.0-31.0); MEAN CORPUSCULAR HGB CONC 35.7 g/dl (33.0-37.0); MEAN PLATELET VOLUME 9.7 fl (9.6-12.3); MONO # 0.5 10*3/uL (0.1-1.0); MONO % 5.2 % (3.0-9.0); NEUT # 6.4 10*3/uL (2.3-7.9); NEUT % 72.8 % (47.0-73.0); PLATELET COUNT AUTOMATED 287 10*3/uL (130-400); RED BLOOD COUNT 5.44 10*6/uL (4.10-5.10); RED CELL DISTRI WIDTH 12.8 % (0-14.5); WHITE BLOOD COUNT 8.8 10*3/uL (4.8-10.8)
[2021-11-04 15:59] LABS: ALKALINE PHOSPHATASE 187 U/L (45-117); BUN 12 mg/dl (7-24); CHLORIDE 94 mmol/L (98-107); CREATININE 0.81 mg/dL (0.55-1.02); LIPASE 52 U/L (73-393); POTASSIUM 4.6 mmol/L (3.5-5.1); SGOT/AST 27 IU/L (3-35); SGPT/ALT 44 U/L (12-78); SODIUM 129 mmol/L (136-145); TOTAL PROTEIN 7.6 gm/dL (6.4-8.2)
[2021-11-04] MEDS ORDERED: COL-RITE100 M1 PO (22:36)
[2021-11-05] MEDS ORDERED: MIRALAX POWDER17 G1 PO (16:16)
== END 2021-11-04 22:36 | disposition home or self-care (01) ==
LOC: ED 14:36
PROVIDERS: Internal Medicine
DX: K59.00 Constipation, unspecified (principal); Z91.041 Radiographic dye allergy status; Z88.8 Allergy status to other drugs, medicaments and biological substances; Z79.82 Long term (current) use of aspirin; Z79.899 Other long term (current) drug therapy; Z90.49 Acquired absence of other specified parts of digestive tract; Z90.710 Acquired absence of both cervix and uterus; Z98.890 Other specified postprocedural states; Z87.891 Personal history of nicotine dependence

== ENCOUNTER 2021-11-05 14:50 | Emergency (ER) | payer OTHER ==
[~2021-11-05] VITALS: Ht 165.1 cm; Wt 63.5 kg
[~2021-11-05 14:50] MED LIST changes: +COL-RITE100 M1 PO
[2021-11-05 14:56] VITALS: BP 168/91
[2021-11-05 15:42] LABS: BASO # 0.1 10*3/uL (0.0-0.1); BASO % 0.7 % (0.0-1.0); EOS # 0.3 10*3/uL (0.0-0.4); HEMATOCRIT 44.2 % (37.0-47.0); LYMPH # 2.1 10*3/uL (1.3-4.4); LYMPH % 21.3 % (27.0-41.0); MEAN CELL VOLUME 82.6 fl (81.0-99.0); MEAN CORPUSCULAR HGB 29.5 pg (27.0-31.0); MEAN CORPUSCULAR HGB CONC 35.7 g/dl (33.0-37.0); MEAN PLATELET VOLUME 9.8 fl (9.6-12.3); MONO # 0.5 10*3/uL (0.1-1.0); MONO % 4.7 % (3.0-9.0); PLATELET COUNT AUTOMATED 270 10*3/uL (130-400); RED BLOOD COUNT 5.35 10*6/uL (4.10-5.10); RED CELL DISTRI WIDTH 13.1 % (0-14.5)
[2021-11-05 15:59] LABS: ALKALINE PHOSPHATASE 174 U/L (45-117); BUN 13 mg/dl (7-24); CHLORIDE 94 mmol/L (98-107); CREATININE 0.65 mg/dL (0.55-1.02); LIPASE 149 U/L (73-393); SGOT/AST 35 IU/L (3-35); SGPT/ALT 51 U/L (12-78); SODIUM 130 mmol/L (136-145); TOTAL PROTEIN 7.5 gm/dL (6.4-8.2)
[2021-11-05 16:00] LABS: POTASSIUM 3.6 mmol/L (3.5-5.1)
[2021-11-05] MEDS ORDERED: MIRALAX POWDER17 G1 PO (16:16)
== END 2021-11-05 16:24 | disposition home or self-care (01) ==
LOC: ED 14:50
PROVIDERS: Student in an Organized Health Care Education/Training Program
DX: K59.00 Constipation, unspecified (principal); Z91.041 Radiographic dye allergy status; Z88.8 Allergy status to other drugs, medicaments and biological substances; Z79.899 Other long term (current) drug therapy; Z79.82 Long term (current) use of aspirin; Z90.49 Acquired absence of other specified parts of digestive tract; Z98.890 Other specified postprocedural states; Z90.710 Acquired absence of both cervix and uterus; Z87.891 Personal history of nicotine dependence

== ENCOUNTER 2021-12-18 06:32 | Emergency (ER) | payer OTHER ==
[~2021-12-18] VITALS: Ht 165.1 cm; Wt 61.2 kg
[2021-12-18 07:13] LABS: BASO % 0.3 % (0.0-1.0); EOS # 0.1 10*3/uL (0.0-0.4); EOS % 1.2 % (1.0-4.0); HEMATOCRIT 41.9 % (37.0-47.0); LYMPH # 0.2 10*3/uL (1.3-4.4); MEAN CELL VOLUME 84.1 fl (81.0-99.0); MEAN CORPUSCULAR HGB 28.7 pg (27.0-31.0); MEAN CORPUSCULAR HGB CONC 34.1 g/dl (33.0-37.0); MEAN PLATELET VOLUME 9.9 fl (9.6-12.3); MONO # 0.3 10*3/uL (0.1-1.0); MONO % 5.6 % (3.0-9.0); NEUT # 5.2 10*3/uL (2.3-7.9); NEUT % 89.6 % (47.0-73.0); PLATELET COUNT AUTOMATED 208 10*3/uL (130-400); RED BLOOD COUNT 4.98 10*6/uL (4.10-5.10); WHITE BLOOD COUNT 5.8 10*3/uL (4.8-10.8)
[2021-12-18 07:32] LABS: ALKALINE PHOSPHATASE 842 U/L (45-117); BUN 10 mg/dl (7-24); CHLORIDE 95 mmol/L (98-107); CREATININE 0.96 mg/dL (0.55-1.02); LIPASE 27 U/L (73-393); POTASSIUM 3.6 mmol/L (3.5-5.1); SGOT/AST 635 IU/L (3-35); SGPT/ALT 347 U/L (12-78); SODIUM 130 mmol/L (136-145); TOTAL PROTEIN 6.8 gm/dL (6.4-8.2)
[2021-12-18 22:27] LABS: BILIRUBIN Negative (Negative); BLOOD Negative (Negative); CLARITY Clear (Clear); COLOR Dark Yellow (Yellow); GLUCOSE 3+ (Negative); KETONE 1+ (Negative); LEUKO ESTERASE Negative (Negative); NITRITE Negative (Negative); SPECIFIC GRAVITY >= 1.030 (1.001-1.030)
[2021-12-18 22:40] LABS: BACTERIA TRACE
[2021-12-19 05:40] LABS: ALKALINE PHOSPHATASE 588 U/L (45-117); BUN 6 mg/dl (7-24); CHLORIDE 102 mmol/L (98-107); CREATININE 0.43 mg/dL (0.55-1.02); POTASSIUM 3.6 mmol/L (3.5-5.1); SGOT/AST 228 IU/L (3-35); SGPT/ALT 222 U/L (12-78); SODIUM 134 mmol/L (136-145)
[2021-12-19 05:41] LABS: TOTAL PROTEIN 5.7 gm/dL (6.4-8.2)
[2021-12-19 06:00] LABS: BASO % 0.2 % (0.0-1.0); EOS # 0.2 10*3/uL (0.0-0.4); HEMATOCRIT 37.6 % (37.0-47.0); LYMPH # 0.7 10*3/uL (1.3-4.4); LYMPH % 12.1 % (27.0-41.0); MEAN CELL VOLUME 83.6 fl (81.0-99.0); MEAN CORPUSCULAR HGB 29.1 pg (27.0-31.0); MEAN CORPUSCULAR HGB CONC 34.8 g/dl (33.0-37.0); MEAN PLATELET VOLUME 10.3 fl (9.6-12.3); MONO # 0.3 10*3/uL (0.1-1.0); MONO % 5.4 % (3.0-9.0); NEUT # 4.5 10*3/uL (2.3-7.9); NEUT % 78.2 % (47.0-73.0); PLATELET COUNT AUTOMATED 195 10*3/uL (130-400); RED CELL DISTRI WIDTH 14.1 % (0-14.5); WHITE BLOOD COUNT 5.7 10*3/uL (4.8-10.8)
[2021-12-19] MEDS ORDERED: PERCOCET 10-321 EACH PO (11:10)
[2021-12-19] MEDS ORDERED: MORPHINE SULFAT30 M9 PO (11:10)
[2021-12-19] MEDS ORDERED: RELISTOR SQ (11:13)
[2021-12-21 07:44] LABS: BASO % 0.9 % (0.0-1.0); EOS # 0.2 10*3/uL (0.0-0.4); EOS % 3.6 % (1.0-4.0); LYMPH # 1.1 10*3/uL (1.3-4.4); LYMPH % 25.1 % (27.0-41.0); MEAN CORPUSCULAR HGB 28.8 pg (27.0-31.0); MEAN CORPUSCULAR HGB CONC 34.8 g/dl (33.0-37.0); MEAN PLATELET VOLUME 9.8 fl (9.6-12.3); MONO # 0.4 10*3/uL (0.1-1.0); MONO % 7.9 % (3.0-9.0); NEUT # 2.7 10*3/uL (2.3-7.9); NEUT % 61.8 % (47.0-73.0); PLATELET COUNT AUTOMATED 219 10*3/uL (130-400); RED BLOOD COUNT 4.82 10*6/uL (4.10-5.10); RED CELL DISTRI WIDTH 13.9 % (0-14.5); WHITE BLOOD COUNT 4.4 10*3/uL (4.8-10.8)
[2021-12-21 08:00] LABS: ALKALINE PHOSPHATASE 464 U/L (45-117); BUN 4 mg/dl (7-24); CHLORIDE 106 mmol/L (98-107); CREATININE 0.55 mg/dL (0.55-1.02); POTASSIUM 3.3 mmol/L (3.5-5.1); SGOT/AST 50 IU/L (3-35); SGPT/ALT 142 U/L (12-78); SODIUM 137 mmol/L (136-145)
[2021-12-22 07:33] LABS: BASO % 0.8 % (0.0-1.0); EOS # 0.2 10*3/uL (0.0-0.4); EOS % 3.8 % (1.0-4.0); HEMATOCRIT 40.8 % (37.0-47.0); LYMPH # 1.4 10*3/uL (1.3-4.4); LYMPH % 28.1 % (27.0-41.0); MEAN CELL VOLUME 83.6 fl (81.0-99.0); MEAN CORPUSCULAR HGB 28.9 pg (27.0-31.0); MEAN CORPUSCULAR HGB CONC 34.6 g/dl (33.0-37.0); MEAN PLATELET VOLUME 9.5 fl (9.6-12.3); MONO # 0.4 10*3/uL (0.1-1.0); MONO % 7.1 % (3.0-9.0); NEUT % 59.8 % (47.0-73.0); PLATELET COUNT AUTOMATED 234 10*3/uL (130-400); RED BLOOD COUNT 4.88 10*6/uL (4.10-5.10)
[2021-12-22 07:52] LABS: ALKALINE PHOSPHATASE 424 U/L (45-117); BUN 4 mg/dl (7-24); CHLORIDE 107 mmol/L (98-107); CREATININE 0.53 mg/dL (0.55-1.02); POTASSIUM 3.4 mmol/L (3.5-5.1); SGOT/AST 34 IU/L (3-35); SGPT/ALT 106 U/L (12-78); SODIUM 139 mmol/L (136-145); TOTAL PROTEIN 6.2 gm/dL (6.4-8.2)
[2021-12-22 22:01] VITALS: BP 112/68
== END 2021-12-22 22:30 | disposition short-term general hospital (02) ==
LOC: ED 06:32
PROVIDERS: Emergency Medicine; Internal Medicine
DX: K83.1 Obstruction of bile duct (principal); Z20.822 Contact with and (suspected) exposure to COVID-19; K21.9 Gastro-esophageal reflux disease without esophagitis; I25.10 Atherosclerotic heart disease of native coronary artery without angina pectoris; I12.9 Hypertensive chronic kidney disease with stage 1 through stage 4 chronic kidney disease, or unspecified chronic kidney disease; E11.22 Type 2 diabetes mellitus with diabetic chronic kidney disease; N18.4 Chronic kidney disease, stage 4 (severe); I25.2 Old myocardial infarction; Z86.73 Personal history of transient ischemic attack (TIA), and cerebral infarction without residual deficits

== ENCOUNTER 2022-03-29 09:03 | Emergency (ER) | payer OTHER ==
[~2022-03-29] VITALS: Ht 165.1 cm; Wt 54.4 kg
[~2022-03-29 09:03] MED LIST changes: +MORPHINE SULFAT30 M9 PO; +PERCOCET 10-321 EACH PO; +RELISTOR SQ
[2022-03-29 09:38] VITALS: BP 116/74
== END 2022-03-29 11:05 | disposition left against medical advice (07) ==
LOC: ED 09:03
DX: Z00.8 Encounter for other general examination (principal); Z53.21 Procedure and treatment not carried out due to patient leaving prior to being seen by health care provider